=== PATIENT | female | born 1965 | race Caucasian/White ===

== ENCOUNTER 2023-07-09 10:53 | Outpatient (AMB) | payer OTHER, SELFPAY ==
--- NOTE | 2023-07-09 11:07 | A.OFFPC_ITS ---
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 Tie Man Required: No Accompanied by: Self / Same As Patient Allergies amoxicillin [From Augmentin] Allergy (Severe, Verified 07/09/23 11:38) Rash clavulanic acid [From Augmentin] Allergy (Severe, Verified 07/09/23 11:38) Rash Medication List - Last Reconciled 07/09/23 by Ingrid Castillo, [facility]- citalopram 20 mg PO DAILY insulin glargine (Basaglar KwikPen U-100 Insulin) 46 units subcut QPM insulin lispro (Humalog KwikPen (U-100) Insulin) subcut metoprolol succinate ER 50 mg PO DAILY pen needle, diabetic (BD Maya 2nd Gen Pen Needle) As directed rosuvastatin 40 mg PO DAILY triamterene-hydrochlorothiazid 37.5-25 mg 1 cap PO DAILY Tobacco use date assessed: 07/09/23 Dental Screening Dental Screen Date: 07/09/23 Did you have a dental visit in the last 12 months?: Yes Did you have a dental problem in the last 6 months where you did not have access to dental care?: No Was dental information given to patient?: Patient has dentist HPI HPI Comments History of Present Illness Details 57 y/o F with DM2, Meniere's Dz, Hyperli pidemia, menopause, obesity, lichen sclerosis, HTN, MDD Surgery: back surgery 2020 Dr Crawford, 2002 R meniscal tear ([facility]). Health Maintenance: Colon 2019, repeat 2022. Overdue ([facility]). Referral placed today. Mammo Oct 2022 DEXA has never had one, ordered today PAP UTD HgA1c she will get this done Friday, ordered by [facility]. DME in last year, reports negative for retinopathy Vaccines: Declined flu shot; Thinks UTD on tdap. 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 Will be getting labs done this week for Endo - declines add'l labs today Derm - was managed in past for lichen sclerosis. Noted new mole under breast, would like evaled. Active w/ ENT for Meniere's. Hearing aide on R.Dizziness that comes and goes. Does her best to watch her diet. Wonders if there's anything she can take PRN. [facility] Medical History (Updated 07/09/23 @ 16:10 by Ingrid Castillo, [employer]-) Menieres disease Diabetes Social History (Updated 07/09/23 @ 11:21 by Lilia Nevarez [facility]) Household Members: Other Household Members Other:: 2 cats Housing: Apartment 75 years or older and lives alone: No Alcohol intake: current Alcohol intake frequency: holidays/special occasions only Patient Tobacco Use Status: Former Tobacco user Years Smoked: 10 e-Cigarette/Vaping Use: Never Used service: No Current occupational status: employed Current occupation: [employer] Current occupational exposures/hazards: No Cognitive needs: No Hearing needs: Yes (hearing aid in right ear) Vision needs: No Questionnaire PHQ-9 Over the last 2 weeks, how often have you been bothered by any of the following problems? 1. Little interest or pleasure in doing things: not at all 2. Feeling down, depressed, or hopeless: not at all 3. Trouble falling or staying asleep, or sleeping too much: not at all 4. Feeling tired or having little energy: not at all 5. Poor appetite or overeating: not at all 6. Feeling bad about yourself - or that you are a failure or have let yourself or your family down: not at all 7. Trouble concentrating on things, such as reading the newspaper or watching television: not at all 8. Moving or speaking so slowly that other people could have noticed. Or the opposite - being so fidgety or restless that you have been moving around a lot more than usual: not at all 9. Thoughts that you would be better off or of hurting yourself in some way : not at all Total score: 0 Depression Screening Interpretation: Negative Depression Screening Done: Yes 24161 - PHQ-9 Billing: Yes Source: Developed by Drs. Jacob Hess, Gayla Oscar, Antonio Martinez and colleagues, with an educational avani from [employer]. Thrive Questionnaire Date Thrive assessed: 07/09/23 I am a: Patient What is your living situation today?: I have a steady place to live Within the past 12 months, did the food you bought not last and you didn't have the money to get more?: Never true Within the past 12 months, did you worry whether your food would run out before you got money to buy more?: Never true Do you have trouble paying for medicines?: No Do you have trouble getting transportation to medical appointments?: No Do you have trouble paying your heating and electricity bill?: No Do you have trouble taking care of your child, family member or friend?: No Do you have trouble with day-to-day activities such as bathing, preparing meals, shopping, managing finances, etc.?: No Are you currently unemployed and looking for a job?: No Are you interested in more education?: No Please select the resources that you would like help with: None Currently or been in a relationship where the following occur: no concerns reported THRIVE Score: 0 AUDIT C Alcohol Use Questionnaire (AUDIT-C) 1. How often do you have a drink containing alcohol?: Never 3. How often do you have six or more drinks on one occasion?: Never Total Score: 0 Score Reviewed/Action Taken: Yes ED-7 AMB Questionnaire ED-7 Date ED - 7 assessed: 07/09/23 Feeling nervous, anxious, or on edge: 0 = Not at all Not being able to stop or control worryin = Not at all Worrying too much about different things: 0 = Not at all Trouble relaxin = Not at all Being so restless that it is hard to sit still: 0 = Not at all Becoming easily annoyed or irritable: 0 = Not at all Feeling afraid as if something awful might happen: 0 = Not at all Total ED-7 score (0-4 normal; 5-9 mild; 10-14 moderate; 15-21 severe): 0 Source: Developed by Gayla Kilgore, Antonio Martinez and colleagues, with an educational avani from [employer]. ED-7 Assessment Billing ED-7 Assessment Tool: ED-7 Assessment 10637 Review of Systems Const Details: Constitutional: Denies fever. Skin: Denies rash. Eye: Denies eye pain. ENMT: Denies sore throat and nasal congestion. Respiratory: Denies shortness of breath and cough. Gastrointestinal: Denies nausea, vomiting or abdominal pain. Cardiovascular: Denies chest pain and syncope. Genitourinary: Denies dysuria. Musculoskeletal: Denies back pain and extremity pain. Neurologic: Denies headaches, confusion, and weakness. Psychiatric: Denies suicidal thoughts and substance abuse. Allergy/ Immunologic: Denies impaired immunity. Physical exam (Primary Care) Vital Signs: Last Vital Signs Pulse 70 07/09/23 11:08 Resp 13 07/09/23 11:08 BP 108/54 L 07/09/23 11:08 Pulse Ox 96 07/09/23 11:08 Oxygen Delivery Method Room Air 07/09/23 11:08 BMI result Body Mass Index 35.3 BMI Assessment/Plan discussion: High BMI High, discussed plan: lifestyle Tobacco/Smoking Status: Tobacco use Status Tobacco use date assessed 07/09/23 07/09/23 11:24 Patient Tobacco Use Status Former Tobacco user 07/09/23 11:24 e-Cigarette/Vaping Use Never Used 07/09/23 11:24 PHQ-9: PHQ-9 Score PHQ-9: Total score 0 07/09/23 11:38 Depression Screening Interpretation: Negative Thrive Assessment: Date of Thrive Assessment Date Thrive assessed 07/09/23 07/09/23 11:24 Currently or been in a relationship where the following occur: no concerns reported Const Other: General: Well developed, well nourished, in no acute distress. Appears stated age. Head: Normocephalic, atraumatic. Eyes: Pupils are equal, round and reactive to light and accommodation. Conjunctivae are clear. Vision grossly normal. Ears: TMs clear AU, EACS WNL Nose: Patent, without discharge. Mouth: There are no ulcers or lesions noted. No inflammation, no post nasal drip, no plaques nor exudates. Neck: Supple, no adenopathy or thyromegaly. Lungs: Clear to auscultation bilaterally. No rales, rhonchi or wheeze noted. Good air flow in all aquion. Heart: Regular rate and rhythm. No murmurs, click, rubs or gallops are noted. Abdomen: Bowel sounds present in all quadrants. The abdomen is soft, nontender, with no masses or organomegaly noted. No hernias are noted. Musculoskeletal: Joints are nontender, without swelling, redness, or effusions. Range of motion is observed to be normal. Pulses: Peripheral pulses are equal and palpable bilaterally. Extremities: No clubbing, cyanosis nor edema is noted. Neurologic: Gait and station normal. Cranial Nerves 2-12 intact. Motor strength grossly symmetrical and intact. No sensory loss. Balance normal. Skin: No rashes, ulcers, or lesions noted. Turgor is good. Skin color is good. Hair and nails are without abnormalities. Psych: Normal eye contact, affect and mood appropriate, and normal interactions. Patient is alert and appropriate to context. Assessment and Plan Assessment & Plan (1) Annual physical exam: Code(s): Z00.00 - Encounter for general adult medical examination without abnormal findings (2) Menopause: Comment: check DEXA ok to get done when she gets her annual mammo done 10/2023 Code(s): Z78.0 - Asymptomatic menopausal state (3) Lichen sclerosus: Comment: referred to [facility] for treatment Code(s): L90.0 - Lichen sclerosus et atrophicus (4) Insulin-treated type 2 diabetes mellitus: Comment: active w/ Endo and Optho On ACEI & Statin Cont diabetic medications and diet Code(s): E11.9 - Type 2 diabetes mellitus without complications; Z79.4 - intermodal dispatcher (c urrent) use of insulin (5) Hyperlipidemia due to type 2 diabetes mellitus: Comment: goal LDL < 70 On rosuvastatin 40mg Code(s): E11.69 - Type 2 diabetes mellitus with other specified complication; E78.5 - Hyperlipidemia, unspecified (6) Hypertension complicating diabetes: Comment: goal < 130/80 Controlled on current meds, cont. Code(s): E11.59 - Type 2 diabetes mellitus with other circulatory complications; I15.2 - Hypertension secondary to endocrine disorders (7) Meniere's disease of right ear: Comment: managed by ENT, Dr [place]en[place] hearing aidawilda R ear Given RX for PRN Meclizine, use sparingly. Code(s): H81.01 - Meniere's disease, right ear (8) Colon cancer screening: Comment: referred to [facility], pt request due for colon 2022. Code(s): Z12.11 - Encounter for screening for malignant neoplasm of colon (9) Severe obesity (BMI 35.0-39.9) with comorbidity: Comment: HTN + DM Lifestyle mods. Code(s): E66.01 - Morbid (severe) obesity due to excess calories (10) MDD (major depressive disorder), recurrent episode: Comment: on celexa 20mg po QD Cont. Code(s): F33.9 - Major depressive disorder, recurrent, unspecified Qualifiers: Major depression episode severity: mild Qualified Code(s): F33.0 - Major depressive disorder, recurrent, mild Orders: Orders XR DEXA axial skeleton Today Z78.0 - Asymptomatic menopausal state Referrals Gastroenterology Referral Z12.11 - Encounter for screening for malignant neoplasm of colon Dermatology Referral L90.0 - Lichen sclerosus et atrophicus Medications: New citalopram 20 mg PO DAILY 90 tabs 1RF rosuvastatin 40 mg PO DAILY 90 tabs 0RF meclizine 25 mg PO BID PRN 60 tabs 0RF dizziness metoprolol succinate ER 50 mg PO DAILY 90 tabs 1RF triamterene-hydrochlorothiazid 37.5-25 mg 1 cap PO DAILY 90 caps 0RF Patient Instructions: RTO 1 year for CPE, sooner as needed Health screenings for women You should visit your health care provider from time to time, even if you are healthy. The purpose of these visits is to: Screen for medical issues Assess your risk for future medical problems Encourage a healthy lifestyle Update vaccinations and other preventive care services Help you get to know your provider in case of an illness Information Even if you feel fine, you should still see your provider for regular checkups. These visits can help you avoid problems in the future. For example, the only way to find out if you have high blood pressure is to have it checked regularly. High blood sugar and high cholesterol levels also may not have any symptoms in the early stages. A simple blood test can check for these conditions. There are specific times when you should see your provider or receive specific health screenings. The [place] Preventive Services Task Force publishes a list of recommended screenings. Below are screening guidelines for women ages 18 to 39. BLOOD PRESSURE SCREENING Your blood pressure should be checked at least once every 3 to 5 years if: Your blood pressure is in the normal range (top number less than 120 mm Hg and bottom number less than 80 mm Hg) You don't have risk factors for high blood pressure Ask your provider if you need your blood pressure checked more often if: The top number is 120 to 129 mm Hg or the bottom number is 70 to 79 mm Hg You have diabetes, heart disease, kidney problems, are overweight, or have certain other health conditions You have a first-degree relative with high blood pressure You are Black You had high blood pressure during a If the top number is 130 mm Hg or greater or the bottom number is 80 mm Hg or greater, this is considered stage 1 hypertension. Schedule an appointment with your provider to learn how you can reduce your blood pressure. Watch for blood pressure screenings in your area. Ask your provider if you can stop in to have your blood pressure checked. BREAST CANCER SCREENING Experts do not agree about the benefits of breast self-exams in finding breast cancer or saving lives. Talk to your provider about what is best for you. A screening mammogram is not recommended for most women under age 40. Your provider may discuss and recommend mammograms, MRI scans, or ultrasounds if you have an increased risk for breast cancer, such as: A mother or sister who had breast cancer at a young age (most often starting screening earlier than the age the close relative was diagnosed) You carry a high-risk genetic marker CERVICAL CANCER SCREENING Cervical cancer screening should start at age 21 years unless your provider advises otherwise. After the first test: Women ages 21 through 29 should have a Pap test every 3 years. Exoprts do not agree on whether HPV testing is recommended for this age group. Women ages 30 through 65 should be screened with either a Pap test every 3 years or the HPV test every 5 years or both tests every 5 years (called cotesting ). Women who have been treated for precancer (cervical dysplasia) should continue to have Pap tests for 20 years after treatment or until age 65, whichever is longer. If you have had your uterus and cervix removed (total hysterectomy), and you have not been diagnosed with cervical cancer or precancer (high grade cervical neoplasia), you do not need cervical cancer screening. CHOLESTEROL SCREENING Cholesterol screening should begin at: Age 45 for women with no known risk factors for coronary heart disease Age 20 for women with known risk factors for coronary heart disease Repeat cholesterol screening should take place: Every 5 years for women with normal cholesterol levels More often if changes occur in lifestyle (including weight gain and diet) More often if you have diabetes, heart disease, kidney problems, or certain other conditions DIABETES SCREENING You should be screened for diabetes starting at age 35 and then repeated every 3 years if you have no risk factors for diabetes. Screening may need to start earlier and be repeated more often if you have other risk factors for diabetes, such as: You have a first degree relative with diabetes. You are overweight or have obesity. You have high blood pressure, prediabetes, or a history of heart disease. Screening for diabetes should be done if you are planning to become and you are overweight and have other risk factors such as high blood pressure. DENTAL EXAM Go to the dentist once or twice every year for an exam and cleaning. Your dentist will evaluate if you need more frequent visits. EYE EXAM Have an eye exam every 5 to 10 years before age 40. If you have vision problems, have an eye exam every 2 years or more often if recommended by your provider. You should have an eye exam that includes an examination of your retina (back of your eye) at least every year if you have diabetes. IMMUNIZATIONS Commonly needed vaccines include: Flu shot: get one every year. COVID-19 vaccine: ask your provider what is best for you. Tetanus-diphtheria and acellular pertussis (Tdap) vaccine: have one at or after age 19 as one of your tetanus-diphtheria vaccines if you did not receive it as an adolescent. Tetanus-diphtheria: have a booster (or Tdap) every 10 years. Varicella vaccine: receive 2 doses if you never had chickenpox or the varicella vaccine. Hepatitis B vaccine: receive 2, 3, or 4 doses, depending on your exact circumstances. Measles, mumps, and rubella (MMR) vaccine: receive 1 to 2 doses if you are not already immune to MMR. Your provider can tell you if you are immune. Ask your provider about the human papillomavirus (HPV) vaccine if: You have not received the HPV vaccine in the past You have not completed the full vaccine series (you should catch up on this shot) Ask your provider if you should receive other immunizations if you have certain health problems that increase your risk for some diseases such as pneumonia. INFECTIOUS DISEASE SCREENING Women who are sexually active should be screened for chlamydia and gonorrhea up until age 25. Women 25 years and older should be screened for chlamydia and gonorrhea if at high risk. Screening for hepatitis C: All adults ages 18 to 79 should get a one-time test for hepatitis C. people should be screened at every . Screening for human immunodeficiency virus (HIV): All people ages 15 to 65 should get a one-time test for HIV. Depending on your lifestyle and medical history, you may also need to be screened for infections such as syphilis and HIV, as well as other infections. PHYSICAL EXAM All adults should visit their provider from time to time, even if they are healthy. The purpose of these visits is to: Screen for disease Assess your risk of future medical problems Encourage a healthy lifestyle Update your vaccinations and other preventive care services Maintain a relationship with a provider in case of an illness Your height, weight, and BMI should be checked at every exam. During your exam, your provider may ask you about: Depression and anxiety Diet and exercise Alcohol and tobacco use Safety issues, such as using seat belts, smoke detectors, and intimate partner violence Your medicines and risk for interactions SKIN SELF-EXAM Your provider may check your skin for signs of skin cancer, especially if you're at high risk, such as if you: Have had skin cancer before Have close relatives with skin cancer Have a weakened immune system OTHER SCREENING Talk with your provider about colon cancer screening if you have a strong family history of colon cancer or polyps, or if you have had inflammatory bowel disease or polyps yourself. Routine bone density screening of women under 40 is not recommended. Coding Level of Care Code New Pt Prev Care 40-64y(46687) Diagnoses Annual physical exam Z00.00 Menopause Z78.0 Lichen sclerosus L90.0 Insulin-treated type 2 diabetes mellitus E11.9; Z79.4 Hyperlipidemia due to type 2 diabetes mellitus E11.69; E78.5 Hypertension complicating diabetes E11.59; I15.2 Meniere's disease of right ear H81.01 Colon cancer screening Z12.11 Severe obesity (BMI 35.0-39.9) with comorbidity E66.01 Mild episode of recurrent major depressive disorder F33.0 Major depression episode severity: mild Additional Codes ED-7 Assessment Billing - ED-7 Assessment Tool: ED-7 Assessment 78394 ([id number])
[2023-07-09 11:08] VITALS: BP 108/54; PULSE 70; RESP 13; O2SAT 96; BMI 35.3
== END 2023-07-09 12:05 | disposition home or self-care (01) ==
PROVIDERS: PCP Nurse Practitioner Family; Visit Provider Nurse Practitioner Family
DX: Z00.00 Encounter for general adult medical examination without abnormal findings (principal); Z79.4 Long term (current) use of insulin; E11.69 Type 2 diabetes mellitus with other specified complication; E11.59 Type 2 diabetes mellitus with other circulatory complications; E66.01 Morbid (severe) obesity due to excess calories; F33.0 Major depressive disorder, recurrent, mild; Z68.35 Body mass index [BMI] 35.0-35.9, adult; Z78.0 Asymptomatic menopausal state; L90.0 Lichen sclerosus et atrophicus; E78.5 Hyperlipidemia, unspecified; I15.2 Hypertension secondary to endocrine disorders; H81.01 Meniere's disease, right ear
CPT/HCPCS: 99386

== ENCOUNTER 2023-08-22 08:21 | Outpatient (REF) | payer OTHER, SELFPAY ==
--- NOTE | ~2023-08-22 | MM_ITS ---
EXAMINATION: BONE DENSITOMETRY CLINICAL INDICATION: Asymptomatic menopausal state. COMPARISON: This is the patient's baseline examination. TECHNIQUE: Using a [employer] DXA System (software version: 13.1) manufactured by [employer], dual-energy x-ray absorptiometry was performed of the lumbar spine and left hip. The images are of good technical quality. Summary results are attached. FINDINGS: LEFT FEMUR, NECK: BMD 1.137 g/cm2, Z-score 1.2, T-score 0.7, normal. LEFT FEMUR, TOTAL: BMD 1.234 g/cm2, Z-score 1.8, T-score 1.8, normal. AP SPINE L1-L4: BMD 1.440 g/cm2, Z-score 2.1, T-score 2.2, normal. IDENTIFIED RISK FACTORS: Menopause, renal, thiazide. HISTORY OF FRACTURE: None listed. MEDICATIONS: Vitamin D. MM/XR DEXA axial skeleton IMPRESSION: 1. DIAGNOSIS: Normal bone density based on the lowest T-score value of 0.7 in the femoral neck applying World Health Organization criteria. 2. 10-YEAR FRACTURE RISK PREDICTION, FRAX: According to the guidelines, FRAX calculation should only be performed on patients in the osteopenia bone density category. Therefore, FRAX was not performed on this patient. 3. Treatment Recommendations: NOF guidelines recommend consideration for treatment in postmenopausal women and men age 50 and older presenting with the following: -A hip or vertebral (clinical or morphometric) fracture. -T-score less than or equal to -2.5 at the femoral neck or spine after appropriate evaluation to exclude secondary causes. -Low bone mass at the hip or spine and a 10-year fracture probability by FRAX of greater than or equal to 3% for hip fracture or greater than or equal to 20% for major osteoporotic fracture based on the [place] adapted WHO algorithm. 4. Other Recommendations: All treatment decisions require clinical judgment and consideration of individual patient factors, including patient preferences, comorbidities, previous drug use, risk factors not captured in the FRAX model (e.g. frailty, falls, vitamin D deficiency, increased bone turnover, interval significant decline in bone density) and possible under or overestimation of fracture risk by FRAX. FUTURE SCAN RECOMMENDATION: People with diagnosed cases of osteoporosis or at high risk for fracture should have regular bone mineral density tests. For patients eligible for Medicare, routine testing is allowed once every 2 years. The testing frequency can be increased to one year for patients who have rapidly progressing disease, those who are receiving or discontinuing medical therapy to restore bone mass, or have additional risk factors.
== END 2023-08-22 08:22 | disposition home or self-care (01) ==
LOC: HO.MAMMO 08:21
PROVIDERS: PCP Nurse Practitioner Family; Visit Provider Nurse Practitioner Family
DX: Z13.820 Encounter for screening for osteoporosis (principal); Z78.0 Asymptomatic menopausal state
CPT/HCPCS: 77080

== ENCOUNTER 2024-03-29 09:37 | Outpatient (AMB) | payer OTHER, SELFPAY ==
--- NOTE | 2024-03-29 09:57 | A.OFFPC_ITS ---
Vital Signs 03/29/24 10:01 Height 5 ft 6 in Weight 218 lb 4 oz BMI 35.2 BP 108/64 Blood Pressure Location Lt brachial Position Sitting Pulse 70 Pulse Source Pulse Oximeter Pulse Oximetry (%) 97 Oxygen Delivery Method Room Air Intake Visit Reasons: Back Pain Intake Note: Lower back pain [employer] Required: No Allergies amoxicillin [From Augmentin] Allergy (Severe, Verified 03/29/24 09:57) Rash clavulanic acid [From Augmentin] Allergy (Severe, Verified 03/29/24 09:57) Rash Tobacco use date assessed: 03/29/24 Dental Screening Dental Screen Date: 07/09/23 HPI HPI Comments History of Present Illness Details 57 y/o F with DM2, Meniere's Dz, Hyperli pidemia, menopause, obesity, lichen sclerosis, HTN, MDD presenting for worsening chronic low back pain She has been having persistent low back pain R>L for the past few months. Worsening in severity. Worsens at night when laying. She cannot even turn over in bed. There is radiation down the right buttock and thigh. Sometimes right leg feels week. Dorsiflexion is weaker on right. Feels like something catches. She has a history of lumbar surgery in [address] Crawford. No fevers or b/b incontinence ROS see HPI PHYSICAL EXAM: GENERAL: Alert and oriented x 3. NAD EYES: EOMI. Anicteric. HENT: Moist mucous membranes. No scleral icterus. No cervical lymphadenopathy. LUNGS: Clear to auscultation bilaterally. CARDIOVASCULAR: Regular rate and rhythm. No murmur. No JVD. ABDOMEN: Soft, non-tender +bs EXTREMITIES: No edema. Non-tender. SKIN: No rashes or lesions. Warm. NEUROLOGIC: Right lumbar paraspinal spasm. Limited flexion/extension. 4/5 right LE dorsiflexion, weak hip abduction. PSYCHIATRIC: Cooperative. Appropriate mood and affect [facility] Medical History (Updated 03/29/24 @ 10:18 by Ramonita Fenton MD) Menieres disease Diabetes Surgical History (Updated 03/29/24 @ 10:18 by Ramonita Fenton MD) Previous back surgery Family History (Updated 03/29/24 @ 09:59 by Deloris Fajardo CMA) Other FH: mental illness Substance abuse Social History (Updated 03/29/24 @ 09:59 by Deloris Fajardo CMA) Household Members: Other Household Members Other:: 2 cats Housing: [address] 75 years or older and lives alone: No Alcohol intake: current Alcohol intake frequency: holidays/special occasions only Patient Tobacco Use Status: Former Tobacco user Years Smoked: 10 e-Cigarette/Vaping Use: Never Used Use of substances other than those prescribed or required for medical reasons: No service: No Current occupational status: employed Current occupation: [employer] Current occupational exposures/hazards: No Cognitive needs: No Hearing needs: Yes (hearing aid in right ear) Vision needs: No Questionnaire Thrive Questionnaire Date Thrive assessed: 03/26/24 I am a: Patient What is your living situation today?: I have a steady place to live Within the past 12 months, did the food you bought not last and you didn't have the money to get more?: Never true Within the past 12 months, did you worry whether your food would run out before you got money to buy more?: Never true Do you have trouble paying for medicines?: No Do you have trouble getting transportation to medical appointments?: No Do you have trouble paying your heating and electricity bill?: No Do you have trouble taking care of your child, family member or friend?: No Do you have trouble with day-to-day activities such as bathing, preparing meals, shopping, managing finances, etc.?: No Are you currently unemployed and looking for a job?: No Are you interested in more education?: No Please select the resources that you would like help with: None Currently or been in a relationship where the following occur: No concerns repor mirela THRIVE Score: 0 AUDIT C Alcohol Use Questionnaire (AUDIT-C) 1. How often do you have a drink containing alcohol?: 2-4 times a month 2. How many drinks containing alcohol do you have on a typical day when you are drinking?: 1 or 2 3. How often do you have six or more drinks on one occasion?: Less than monthly Total Score: 3 ED-7 AMB Questionnaire ED-7 Date ED - 7 assessed: 07/09/23 Feeling nervous, anxious, or on edge: 0 = Not at all Not being able to stop or control worryin = Not at all Worrying too much about different things: 0 = Not at all Trouble relaxin = Not at all Being so restless that it is hard to sit still: 0 = Not at all Becoming easily annoyed or irritable: 0 = Not at all Feeling afraid as if something awful might happen: 0 = Not at all Total ED-7 score (0-4 normal; 5-9 mild; 10-14 moderate; 15-21 severe): 0 Source: Developed by Drs. Jacob Hess, Gayla Oscar, Antonio Martinez and colleagues, with an educational avani from [employer]. Physical exam (Primary Care) Vital Signs: Last Vital Signs Pulse 70 03/29/24 10:01 BP 108/64 03/29/24 10:01 Pulse Ox 97 03/29/24 10:01 Oxygen Delivery Method Room Air 03/29/24 10:01 BMI result Body Mass Index 35.2 Tobacco/Smoking Status: Tobacco use Status Tobacco use date assessed 03/29/24 03/29/24 10:02 Patient Tobacco Use Status Former Tobacco user 03/29/24 10:02 e-Cigarette/Vaping Use Never Used 03/29/24 10:02 Thrive Assessment: Date of Thrive Assessment Date Thrive assessed 03/26/24 03/29/24 10:02 Currently or been in a relationship where the following occur: No concerns reported Coding Level of Care Code Est Pt Level 4 (78838) Diagnoses Lumbar radiculopathy M54.16 History of lumbar surgery Z98.890 Lumbar disc disease M51.9 Assessment & Plan Assessment & Plan (1) Lumbar radiculopathy: Code(s): M54.16 - Radiculopathy, lumbar region Category: Medical Plan: xray and MRI ordered Referral placed to physical therapy Will follow up with results Declines meds (2) History of lumbar surgery: Code(s): Z98.890 - Other specified postprocedural states Category: Surgical Plan: see above (3) Lumbar disc disease: Code(s): M51.9 - Unspecified thoracic, thoracolumbar and lumbosacral intervertebral disc disorder Category: Medical Plan: see above Orders: Orders MR lumbar spine w con Today M51.9 - Unspecified thoracic, thoracolumbar and lumbosacral intervertebral disc disorder, M54.16 - Radiculopathy, lumbar region, M62.830 - Muscle spasm of back, Z98.890 - Other specified postprocedural states PT Evaluation and Treatment Today M54.16 - Radiculopathy, lumbar region XR lumbar spine 2-3V Today M51.9 - Unspecified thoracic, thoracolumbar and lumbosacral intervertebral disc disorder, M62.830 - Muscle spasm of back
[2024-03-29 10:01] VITALS: BP 108/64; PULSE 70; O2SAT 97; BMI 35.2
== END 2024-03-29 11:55 | disposition home or self-care (01) ==
PROVIDERS: PCP Nurse Practitioner Family; Visit Provider Internal Medicine
DX: M54.16 Radiculopathy, lumbar region (principal); Z98.890 Other specified postprocedural states; M51.9 Unspecified thoracic, thoracolumbar and lumbosacral intervertebral disc disorder

== ENCOUNTER 2024-07-14 11:57 | Outpatient (AMB) | payer OTHER, SELFPAY ==
--- NOTE | 2024-07-14 12:00 | A.OFFPC_ITS ---
Vital Signs 07/14/24 12:08 Height 5 ft 6 in Weight 221 lb BMI 35.7 BP 98/69 Blood Pressure Location Rt brachial Position Sitting Respiration 12 Pulse 55 Pulse Source Pulse Oximeter Temp 97.6 F Temp Source Oral Pulse Oximetry (%) 98 Oxygen Delivery Method Room Air Intake Visit Reasons: pe Intake Note: CPE. Patient also want to discuss her vertigo. [employer] Required: No Allergies amoxicillin [From Augmentin] Allergy (Severe, Verified 07/14/24 12:23) Rash clavulanic acid [From Augmentin] Allergy (Severe, Verified 07/14/24 12:23) Rash Medication List - Last Reconciled 07/14/24 by Ingrid Castillo, CLAY MACHINE OPERATOR- citalopram 20 mg PO DAILY insulin glargine (Basaglar KwikPen U-100 Insulin) 10 units subcut QPM insulin lispro (Humalog KwikPen (U-100) Insulin) 1 sliding scale dose subcut USEASDIRECTD meclizine 25 mg PO BID PRN metoprolol succinate ER 50 mg PO DAILY pen needle, diabetic (BD Maya 2nd Gen Pen Needle) As directed rosuvastatin 40 mg PO DAILY semaglutide (Ozempic) 0.25 mg subcut QWEEK triamterene-hydrochlorothiazid 37.5-25 mg 1 cap PO DAILY Tobacco use date assessed: 07/14/24 Dental Screening Dental Screen Date: 07/14/24 Did you have a dental visit in the last 12 months?: Yes Did you have a dental problem in the last 6 months where you did not have access to dental care?: No Was dental information given to patient?: Patient has dentist HPI HPI Comments History of Present Illness Details 58 y/o F with DM2, Meniere's Dz, Hyperli pidemia, menopause, obesity, l ichen sclerosis, HTN, MDD Surgery: back surgery 2020 Dr Crawford, 2002 R meniscal tear ([facility]). Health Maintenance: Colon 2019, repeat 2024, + polyps, repeat 5 years Overdue ([facility]). DEXA 08/2023 WNL Mammo 10/2023 PAP UTD DME in last year, reports negative for retinopathy Summer 2023 Vaccines: Declined flu shot; Thinks UTD on tdap. Specialists: [facility] E[facility] at [facility] - treated for ingrown toenails; next appt July 2024 Results: DEXA 08/2023 WNL Mammo 10/2023Feb 2024 CMP, Urine microalb WNL Oct 2024 Lipids WNL Stress test 2020 - was not able to review, ? done at [facility] Sleep study pending ordered by ENT August 2024 The patient is a 58-year-old female presenting with an annual physical exam and evaluation of chest pain. - Reports sporadic and intermittent ches t pain primarily at rest, no clear triggers associated with food or exercise, previously evaluated with a stress test in 2020. - The stress test due to previous activi ty-related pain led to initiation of metoprolol; current pain differs by occurring mostly at rest.BP on lower side of normal today. - A1c improved from 9.4% in May to 8.7 % today. - Manages type 2 diabetes with insulin a nd recent addition of Ozempic. Endo. - Previous colonoscopy revealed precance ming polyps, next scheduled in five years. - Worsening vertigo related to Meniere's disease, reports outside recent labs revealed low chloride level, she wonders if this could be the cause - Additional concern of potential sleep apnea; sleep study scheduled. - Stable depression yet reports severe f atigue and frequent daytime naps - Experiences possible neuropathy in toe s, primarily nocturnal, and sensation issues attributed to diabetes. Active w podiatry. - Functionality somewhat affected by diz ziness episodes due to Meniere?s disease. Active w/ ENT for Meniere's. Hearing aide on R. Dizziness that comes and goes. Does her best to watch her diet. Derm - managed in past for lichen sclerosis. mole under breast, evaled. Health Maintenance - Colonoscopy in the current year with p olyp removal; repeat scheduled in 2024. - Last diabetic eye exam in summer 2023, without reported issues. - Scheduled sleep study for potential ob structive sleep apnea in August. - Was advised on continuing preventative screenings and monitoring for diabetes complications. Review of Systems - Cardiovascular: Reports chest pain (sp oradic, at rest); Denies palpitations. - Gastrointestinal: Denies nausea, vomit ing. - Musculoskeletal: Denies pain in back o r arms. - Neurological: Reports vertigo associat ed with Meniere's disease; Denies migraines. - Psychiatric: Reports mood stable; Kofi es depression but feels fatigued. - Dermatological: Denies new skin lesion s (seeing internal wholesaler). - Ophthalmological: Last eye exam in sum 2023. Results - Labs: A1c level at 8.7%, triglycerides elevated at 157, other cholesterol levels within normal range. - Diagnostic Tests: Stress test in 2020; no results available but was performed due to chest pain during activity. Discussion Notes During today?s visit, we discussed the patient's multiple health concerns, including intermittent chest pain, diabetes management, potential obstructive sleep apnea, Meniere's disease, and frequent fatigue. We reviewed her historical data, including the stress test conducted in 2020, and her current medication regimen, notably metoprolol and recent addition of Ozempic. For her chest pain, we considered performing an EKG to check for any structural heart changes, as well as possibly adjusting her current medication dosages. Concerns of neuropathy and vertigo were noted, and the patient has pending endocrinological and ENT evaluations. We discussed home monitoring of her symptoms, including keeping a diary of her chest pain episodes and the importance of comprehensive glucose management. We agreed upon updating labs today to check chloride levels and other relevant parameters to better correlate her symptoms and potential findings. Furthermore, we addressed health maintenance topics such as eye exams and colonoscopy follow-up. Assessment and Plan 1. Type 2 Diabetes Mellitus Managed with insulin and Ozempic. A1c trending positively. Monitoring glucose levels and chloride due to potential interaction. Advised dietary management. 2. Chest Pain EKG performed today, WNL, reproducible, labs look good. Sent message after visit asking her to trial a PPI for 4 weeks and re-eval. Waiting on reply at this time. Current pain pattern differs from past; ongoing monitoring required. 3. Meniere's Disease Managed by ENT. Experienced vertigo, normal chloride levels checked, and treatments adjusted based on ENT guidance. 4. Pre-cancerous Colon Polyps Routine follow-up colonoscopy in five years; patient informed of results and importance of follow-up. 5. Hyperlipidemia Continue rosuvastatin; diet and triglyceride monitoring advised with follow-up labs. 6. Potential Obstructive Sleep Apnea Sleep study discussed and planned for August to assess sleep-related fatigue. Patient Instructions -Decrease Metoprolol Succ ER from 50mg Q D to 25 mg QD (cut in half. NN Recheck BP in 4 weeks) - Continue with all other current medica tions as prescribed. - Monitor blood sugar levels consistentl y. - Keep a diary of chest pain episodes, n oting triggers and associated activities. - Maintain regular appointments with end ocrinology and ENT specialists. - Follow a heart-healthy diet to manage cholesterol and triglyceride levels. - Attend sleep study; pay attention to s leep quality. - Communicate any sudden changes in symp toms or new concerns to the healthcare provider promptly. - RTO 1 year for CPE, although is trials PPI would like to see her sooner to ensure resolution of her sx. Consent Patient was informed and verbally consented to the use of an ambient scribe for clinic note documentation during this visit. An additional 33 minutes was spent addressing the problem(s) noted at todays visit. This includes time spent before the visit reviewing the chart, time spent during the visit, and time spent after the visit on documentation reviewing laboratory results, diagnostic imaging, medications, performing a medically necessary evaluation, counseling on diagnoses, care coordination, ordering a ppropriate tests, ordering appropriate medications, review of tests performed by other providers, reporting test results with the patient, communication with other healthcare providers. [facility] Medical History (Updated 07/14/24 @ 18:47 by CYNTHIA Gil-OSMIN) Diabetes Menieres disease Surgical History (Updated 07/14/24 @ 12:29 by Ingrid Castillo CLAY MACHINE OPERATOR-OSMIN) History of colonoscopy (~2024) Previous back surgery Family History Other FH: mental illness Substance abuse Social History Household Members: Other Household Members Other:: 2 cats Housing: Apartment Alcohol intake: current Alcohol intake frequency: holidays/special occasions only Patient Tobacco Use Status: Former Tobacco user Years Smoked: 10 e-Cigarette/Vaping Use: Never Used service: No Current occupational status: employed Current occupation: [employer] Current occupational exposures/hazards: No Cognitive needs: No Hearing needs: Yes (hearing aid in right ear) Vision needs: No Questionnaire PHQ-9 Over the last 2 weeks, how often have you been bothered by any of the following problems? 1. Little interest or pleasure in doing things: not at all 2. Feeling down, depressed, or hopeless: not at all 3. Trouble falling or staying asleep, or sleeping too much: several days 4. Feeling tired or having little energy: several days 5. Poor appetite or overeating: several days 6. Feeling bad about yourself - or that you are a failure or have let yourself or your family down: not at all 7. Trouble concentrating on things, such as reading the newspaper or watching television: not at all 8. Moving or speaking so slowly that other people could have noticed. Or the opposite - being so fidgety or restless that you have been moving around a lot more than usual: not at all 9. Thoughts that you would be better off or of hurting yourself in some way: not at all Total score: 3 Depression Screening Interpretation: Negative Depression Screening Done: Yes 50842 - PHQ-9 Billing: Yes Source: Developed by Drs. Jacob Hess, Gayla Oscar, Antonio Martinez and colleagues, with an educational avani from [employer]. Thrive Questionnaire Date Thrive assessed: 07/14/24 I am a: Patient What is your living situation today?: I have a steady place to live Within the past 12 months, did the food you bought not last and you didn't have the money to get more?: Never true Within the past 12 months, did you worry whether your food would run out before you got money to buy more?: Never true Do you have trouble paying for medicines?: No Do you have trouble getting transportation to medical appointments?: No Do you have trouble paying your heating and electricity bill?: No Do you have trouble taking care of your child, family member or friend?: No Do you have trouble with day-to-day activities such as bathing, preparing meals, shopping, managing finances, etc.?: No Are you currently unemployed and looking for a job?: No Are you interested in more education?: No Please select the resources that you would like help with: None Currently or been in a relationship where the following occur: No concerns reported THRIVE Score: 0 AUDIT C Alcohol Use Questionnaire (AUDIT-C) 1. How often do you have a drink containing alcohol?: Never 3. How often do you have six or more drinks on one occasion?: Never Total Score: 0 Score Reviewed/Action Taken: Yes ED-7 AMB Questionnaire ED-7 Date ED - 7 assessed: 07/14/24 Feeling nervous, anxious, or on edge: 0 = Not at all Not being able to stop or control worryin = Not at all Worrying too much about different things: 0 = Not at all Trouble relaxin = Not at all Being so restless that it is hard to sit still: 0 = Not at all Becoming easily annoyed or irritable: 0 = Not at all Feeling afraid as if something awful might happen: 0 = Not at all Total ED-7 score (0-4 normal; 5-9 mild; 10-14 moderate; 15-21 severe): 0 Source: Developed by Drs. Jacob Hess, Gayla Oscar, Antonio Martinez and colleagues, with an educational avani from [employer]. ED-7 Assessment Billing ED-7 Assessment Tool: ED-7 Assessment 78988 Physical exam (Primary Care) Vital Signs: Last Vital Signs Temp 97.6 F 07/14/24 12:08 Pulse 55 07/14/24 12:08 Resp 12 07/14/24 12:08 BP 98/69 07/14/24 12:08 Pulse Ox 98 07/14/24 12:08 Oxygen Delivery Method Room Air 07/14/24 12:08 BMI result Body Mass Index 35.7 BMI Assessment/Plan discussion: High BMI High, discussed plan: lifestyle Tobacco/Smoking Status: Tobacco use Status Tobacco use date assessed 07/14/24 07/14/24 12:04 Patient Tobacco Use Status Former Tobacco user 07/14/24 12:04 e-Cigarette/Vaping Use Never Used 07/14/24 12:04 PHQ-9: PHQ-9 Score PHQ-9: Total score 3 07/14/24 17:15 Depression Screening Interpretation: Negative Thrive Assessment: Date of Thrive Assessment Date Thrive assessed 07/14/24 07/14/24 12:04 Currently or been in a relationship where the following occur: No concerns reported Const Other: General: Well developed, well nourished, in no acute distress. Appears stated age. Head: Normocephalic, atraumatic. Eyes: Pupils are equal, round and reactive to light and accommodation. Conjunctivae are clear. Vision grossly normal. Ears: TMs clear AU, EACS WNL Nose: Patent, without discharge. Mouth: There are no ulcers or lesions noted. No inflammation, no post nasal drip, no plaques nor exudates. Neck: Supple, no adenopathy or thyromegaly. No carotid bruit bilat Lungs: Clear to auscultation bilaterally. No rales, rhonchi or wheeze noted. G ood air flow in all aquino. Heart: Regular rate and rhythm. No murmurs, click, rubs or gallops are noted. Abdomen: Bowel sounds present in all quadrants. The abdomen is soft, nontender, with no masses or organomegaly noted. No hernias are noted. Some pressure noted upon palpation, especially in the mid-sternal/epigastric area, reproducible chest pain Musculoskeletal: Joints are nontender, without swelling, redness, or effusions. Range of motion is observed to be normal. Pulses: Peripheral pulses are equal and palpable bilaterally. Extremities: No clubbing, cyanosis nor edema is noted. Neurologic: Gait and station normal. Cranial Nerves 2-12 intact. Motor strength grossly symmetrical and intact. No sensory loss. Balance normal. Skin: No rashes, ulcers, or lesions noted. Turgor is good. Skin color is good. Hair and nails are without abnormalities. Psych: Normal eye contact, affect and mood appropriate, and normal interactions. Patient is alert and appropriate to context. Office Procedures EKG [id number], Complete Results AMB Hemoglobin A1c AMB Hemoglobin A1c 8.7 % Last Edit by Abhi Reyes MA on 07/14/24 12:20 Results Reviewed Results Reviewed: Laboratory Last Values Hgb A1c (Clinic) 8.7 % (4.0-6.0) H 07/14/24 12:14 Laboratory Result Units Range Interpretation Provider Comments White Blood Count 9.0 X10*3/uL (4.8-10.8) Red Blood Count 4.21 X10*6/uL (4.20-5.50) Hemoglobin 12.6 g/dl (12.0-16.0) Hematocrit 37.5 % (37.0-47.0) Mean Corpuscular Volume 89.1 fL (80.0-98.0) Mean Corpuscular Hemoglobin 29.9 pg (27.0-33.0) Mean Corpuscular Hemoglobin Concent 33.6 g/dl (31.0-35.0) Red Cell Distribution Width 14.0 % (11.0-16.0) Platelet Count 263 X10*3/uL (160-400) Mean Platelet Volume 9.6 fL (9.4-12.3) Nucleated RBC Absolute Count (auto) 0.000 X10*3/uL (0.0-0.012) Nucleated Red Blood Cells % (auto) 0.0 /100WBC (0.0-0.2) Chloride Level 98 mmol/L (96-108) Phosphorus Level 3.0 mg/dL (2.7-4.5) Magnesium Level 2.1 mg/dL (1.6-2.6) Ferritin 67 ng/mL (10-250) Vitamin B12 Level 317 pg/mL (200-900) Folate 8.0 ng/mL (> or = 4.0) Thyroid Stimulating Hormone (TSH) 0.97 uIU/mL (0.32-4.0) Coding Level of Care Code Est Pt Level 4 (61964) Est Pt Prev Care 40-64y(77148) Diagnoses Annual physical exam Z00.00 Hyperlipidemia due to type 2 diabetes mellitus E11.69; E78.5 Hypertension complicating diabetes E11.59; I15.2 Insulin-treated type 2 diabetes mellitus E11.9; Z79.4 Lichen sclerosus L90.0 Mild episode of recurrent major depressive disorder F33.0 Major depression episode severity: mild Meniere's disease of right ear H81.01 Menopause Z78.0 Severe obesity (BMI 35.0-39.9) with comorbidity E66.01 Chest pain, unspecified type R07.9 Chest pain type: unspecified CPT Codes EKG - CPT: 15885-[id number], Complete ([id number]) Additional Codes ED-7 Assessment Billing - ED-7 Assessment Tool: ED-7 Assessment 54688 ([id number]) PHQ-9 - 21233 - PHQ-9 Billing: Yes ([id number]) Assessment & Plan Assessment & Plan (1) Annual physical exam: Onset Date: ~06/2024 Code(s): Z00.00 - Encounter for general adult medical examination without abnormal findings Category: Medical (2) Hyperlipidemia due to type 2 diabetes mellitus: Comment: goal LDL < 70 On rosuvastatin 40mg Code(s): E11.69 - Type 2 diabetes mellitus with other specified complication; E78.5 - Hyperlipidemia, unspecified Category: Medical (3) Hypertension complicating diabetes: Comment: goal < 130/80 Controlled on current meds, cont. Code(s): E11.59 - Type 2 diabetes mellitus with other circulatory complications; I15.2 - Hypertension secondary to endocrine disorders Category: Medical (4) Insulin-treated type 2 diabetes mellitus: Comment: active w/ Endo and Optho On ACEI & Statin Cont diabetic medications and diet Code(s): E11.9 - Type 2 diabetes mellitus without complications; Z79.4 - [facility]FP (current) use of insulin Category: Medical (5) Lichen sclerosus: Comment: referred to [facility] for treatment Code(s): L90.0 - Lichen sclerosus et atrophicus Category: Medical (6) MDD (major depressive disorder), recurrent episode: Comment: on celexa 20mg po QD Cont. Code(s): F33.9 - Major depressive disorder, recurrent, unspecified Category: Medical Qualifiers: Major depression episode severity: mild Qualified Code(s): F33.0 - Major depressive disorder, recurrent, mild (7) Meniere's disease of right ear: Comment: managed by ENT, Dr Montenegro hearing aide R ear Code(s): H81.01 - Meniere's disease, right ear Category: Medical (8) Menopause: Comment: DEXA 2023 wn Code(s): Z78.0 - Asymptomatic menopausal state Category: Medical (9) Severe obesity (BMI 35.0-39.9) with comorbidity: Comment: HTN + DM Lifestyle mods. Code(s): E66.01 - Morbid (severe) obesity due to excess calories Category: Medical (10) Chest pain: Code(s): R07.9 - Chest pain, unspecified Category: Medical Qualifiers: Chest pain type: unspecified Qualified Code(s): R07.9 - Chest pain, unspecified Plan . Orders: Orders AMB Hemoglobin A1c Today Z13.9 - Encounter for screening, unspecified TSH reflex Free T4 Today R07.9 - Chest pain, unspecified Complete Blood Count no Diff Today R07.9 - Chest pain, unspecified Vitamin B12 and Folate Today R07.9 - Chest pain, unspecified Ferritin Today R07.9 - Chest pain, unspecified Magnesium Today R07.9 - Chest pain, unspecified Phosphorus Today R07.9 - Chest pain, unspecified Chloride Today R07.9 - Chest pain, unspecified Medications: Changed From metoprolol succinate ER 50 mg PO DAILY 90 tabs 1RF To metoprolol succinate ER 25 mg (1/2 x 50 mg) PO DAILY 90 tabs 1RF Refilled citalopram 20 mg PO DAILY 90 tabs 1RF metoprolol succinate ER 50 mg PO DAILY 90 tabs 1RF rosuvastatin 40 mg PO DAILY 90 tabs 1RF triamterene-hydrochlorothiazid 37.5-25 mg 1 cap PO DAILY 90 caps 0RF Discontinued meclizine Discontinued Reason: Patient Completed Course 25 mg PO BID PRN 60 tabs 0RF dizziness
[2024-07-14 12:08] VITALS: BP 98/69; PULSE 55; RESP 12; TEMP 36.4; O2SAT 98; BMI 35.7
--- OUTSIDE RECORDS SUMMARY | 2024-07-14 13:27 | XMS_ITS | Encounter Summary ---
Author Organization [facility] [place] [address] Care Team Providers Care Redye Hand Name Role Phone Pallavi Antunez MD Primary Care Provider Reason for Visit * Reason Onset Date Comments Medication Problem 06/28/2024 Encounter Details Date Type Department Care Team (Late st Contact Info) Description 06/28/2024 Telephone [facility] [address] [place] [address] Prakash Waller PA [address] [place] [address] Medication Problem Social History Tobacco Use Types Packs/Day Years Used Date Smoking Tobacco: Former Cigarettes 0.5 7.9 0 03/17/1984 - 02/17/1992 Smokeless Tobacco: Never Alcohol Use Standard Drinks/Week Comments Yes 0 (1 standard drink = 0.6 oz pur e alcohol) Comments Unknown Sex and Gender Information Value Date Recorded Sex Assigned at Not on file Legal Sex Female 4:48 AM EST Gender Identity Not on file Sexual Orientation Not on file documented as of this encounter Progress Notes * Maite Monaco RN - 06/30/2024 12:49 PM EDT Called patient, left VM to call her insurance and see what med is covered in place of Ozempic * Cherelle Nj - 06/28/2024 10:32 AM EDT Medication Problem: What is the name of the medication patient is having a problem with?: OZEMPIC 0.25-0.5MG DOSE What is the problem?: NOT COVERED BY INSURANCE Who is calling about the problem? : [facility] Is this a NEW medication?: yes How long has the patient been taking this medication? 06/02/24 Who prescribed this medication for the patient? PRAKASH WALLER Who is patients PCP?: Pallavi Antunez MD Payor: MARQUIS / Plan: [employer] PPO / Product Type: *No Product type* / documented in this encounter Plan of Treatment Upcoming Encounters Date Type Department Care Team (Late st Contact Info) Description 08/02/2024 3:45 PM EDT Office Visit Orthopedic Surgery [place] [id number] [phone] Blade Mcfarlane, DPM [address] [address] 01/07/2025 9:40 AM EDT Office Visit Endocrinology - [address] [address] Prakash Waller PA [address] [place] [address] documented as of this encounter Visit Diagnoses Not on filedocumented in this encounter Care Teams Redye Hand Relationship Specialty Start Date End Date Pallavi Antunez MD [address] [place] [id number] PCP - General Internal Medicine 06/11/21 documented as of this encounter
--- OUTSIDE RECORDS SUMMARY | 2024-07-14 13:28 | XMS_ITS | Data Portability ---
Author Organization [place] 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 ? ?ni? ? ?re's disease have changed in a way that it is likely that she is now experiencing vestibular migraine. Today we discussed the pathophysiology of migraine and migraine associated phenomena such as dizziness and visual aura. We discussed how the patient's balance disturbance symptoms are likely mediated by a central processing abnormality rather than an isolated inner ear abnormality. I gave the patient a significant amount of literature to review at home regarding how there are many environmental and dietary triggers that can lead to not only migraine headaches but balance disturbance symptoms as well. We spent a lot of time discussing the importance of following a migraine diet. We have offered the patient a copy of the Heal Your Headache book to read at home, which gives a tadm-ya-zhof discussion on what causes migraine and how to make the necessary lifestyle and dietary changes to significantly reduce or eliminate migraine symptoms. I have also recommended the use of dietary supplements magnesium, vitamin B2 and feverfew which have been shown to help control migrainous phenomena. We discussed dosage and schedule for these supplements. We discussed alternative of using Migranol, which contains a combination of magnesium, vitamin B2, and feverfew. We discussed the use of timolol ophthalmic drops as a potential vestibular migraine abortive. Instructions given on how to use this drop as needed for onset of symptoms. In light of her snoring and elevated BMI, there is a possibility that she may be experiencing obstructive sleep apnea as a trigger for her symptoms. Will order sleep study for further evaluation. [email or web address] Not available 06/15/2024 14:36:46 Plan of Treatment Reminders Order Date Submit Date Provider Last Modified By Organization Details Last Modified Time Details Appointments None recorded. Lab None recorded. Referral None recorded. Procedures polysomnogr aphy, diagnostic (PROC) 2024 025 [email or web address], [address] [place] [address], [address], 11:58:16 Surgeries None recorded. Imaging None recorded. Medication Orders timolol 0.5 % eye drops 2024 025 [id number], [address] [place], [address], 14:33:29 Patient TargetsNo targets recorded. Patient InstructionsNo instructions recorded. Reason for Referral None Reported. Results Created Date Observation Date Name Description Value Unit Range Abnormal Flag Note LastModifiedBy Organization Detail LastModifiedTime 06/30/1906/30/2024 ELECT ROLYT E PANEL sodium 135 mmol/ L 134-14 4 normal Not Available [facility] ([facility]) [address] [place], [address], 06/30/2024 02:17:00 06/30/1906/30/2024 ELECT ROLYT E PANEL potassium 3.7 mmol/ L 3.5-5. 2 normal Not Available [facility] ([facility]) [address] [place], [address], 06/30/2024 02:17:00 06/30/1906/30/2024 ELECT ROLYT E PANEL chloride 93 mmol/ L 96-106 below low normal Not Available [facility] ([facility]) [address] [place], [address], 06/30/2024 02:17:00 06/30/1906/30/2024 ELECT ROLYT E PANEL carbon dioxide, total 21 mmol/ L 20-29 normal Not Available [facility] ([facility]) [address], [place], [address], 06/30/2024 02:17:00 06/16/19 25 audio gram No observ ation record ed. BARCODE Not Available 2024 14:42:30 Result Notes None recorded. Problems Name Problem SNOMED Code Status Onset Date Resolution Date Notes Provider Name and Address Organization Details Recorded Time Dizziness and giddiness 038659161 Active 2017 Dizziness and giddiness ; Note: Date Diagnosed : 8 2:49 PM (R42) Not Available [facility] 4 02:56:08 Sensorine ural hearing loss 15998177 Active 2020 Sensorine ural hearing loss, unilatera l, right ear, with unrestric mirela hearing on the contralat eral side; Note: Date Diagnosed : 11/22/2020 12:19 PM (H90.41) Not Available [facility] 4 02:56:08 Tinnitus of right ear 07580516664 08 Active 2020 Tinnitus, right ear; Note: Date Diagnosed : 11/22/2020 12:19 PM (H93.11) Not Available [facility] 4 02:56:10 M? ? ?ni? ? ?re's disease 58731352 Active 2017 Meniere's disease, right ear; Note: Date Diagnosed : 8 3:12 PM (H81.01) Not Available [facility] 4 02:56:07 Impacted cerumen in right ear [id number] 01680 Active 2022 Impacted cerumen, right ear; Note: Date Diagnosed : 3 9:47 AM (H61.21) Not Available [facility] 4 02:56:10 Nasal congestio n 71981334 Active 2018 Nasal congestio n; Note: Date Diagnosed : 05/05/2018 3:35 PM (R09.81) Not Available [facility] 4 02:56:08 Sensorine ural hearing loss in right ear 39187921435 100 Active 2024 JAIME FERREIRA [address] [facility] [address], [place], [address] , [facility] - [facility] 13:44:15 Migraine variants 281975873 Active 2024 CHRISTINE ANN MD [address] [facility] [address], [place], [address] , [facility] - [facility] [place] 14:31:11 Vertigo of central origin 92876318 Active 2024 CHRISTINE ANN MD [address] [facility] [address], [place], [address] , [facility] - [facility] [place] 14:31:11 Snoring 10128927 Active 2024 CHRISTINE ANN MD [address] [facility] [address], [place], [address] , [facility] - [facility] 14:31:58 Obesity 928126673 Active 2024 CHRISTINE ANN MD [address] [facility] [address], [place], [address] , [facility] - [facility] [place] 14:33:39 Problem Notes None recorded. Procedures Surgical History Date Name Laterality Status Provider Name and Address Organization Details Recorded Time 06/15/2024 Comp Audio with Tymps (86307 & 34224) completed JAIME FERREIRA [address] [facility] [address], [place], [address], [facility] - [facility] [place] 06/15/2024 13:43:37 Imaging Results Imaging Date Name Status LastModified by Organiz ation Details LastModified Time 06/15/2024 audiogram completed BARCODE Information no t available 06/15/2024 14:42:30 Procedure Notes None recorded. Medical Equipment None Reported. Allergies No known drug allergies Medications Name Sig Start Date Stop Date Status Note LastModified by Organization Details LastModified Time silver sulfadiaz ine 1 % topical cream APPLY TOPICALL Y 1 TIME EACH DAY. active Not Available Not Available No t Available fluconazo le 150 mg tablet 02/27 completed Medicati on ID: [id number] B rand Name: fluconaz ole Send Method: E-Prescr ibed Sub s Allowed: subs OK Medic ationGen ericName : fluconaz ole Not Available Not Available Not Available metoprolo l succinate ER 50 mg tablet,ex tended release 24 hr TAKE 1 TABLET BY MOUTH EVERY DAY active Not Available Not Available No t Available clonazepa m 0.5 mg tablet 1 tablet by mouth 11/22 completed Medicati on ID: [id number] P rescribe d By Name: Latoya Corbett nd Name: clonazep am Send Method: E-Prescr ibed Sub s Allowed: subs OK Speci al Instruct ion: as needed for vertigo episodes Medicat ionGener icName: clonazep am Not Available Not Available Not Available Cleve Low Dose Aspirin 81 mg tablet,de layed release 10/17 completed Medicati on ID: [id number] B rand Name: Cleve Low Dose Aspirin Send Method: E-Prescr ibed Sub s Allowed: subs OK Medic ationGen ericName : Cleve Low Dose Aspirin Not Available Not Available Not Available sulfameth oxazole 800 mg-trimet hoprim 160 mg tablet PLEASE SEE ATTACHED FOR DETAILED DIRECTIO NS 06/15 completed Not Available Not Available Not Available triamtere ne 37.5 mg-hydroc hlorothia zide 25 mg capsule TAKE 1 CAPSULE BY MOUTH EVERY DAY active Not Available Not Available No t Available glimepiri de 1 mg tablet 10/17 completed Medicati on ID: [id number] D uration Value: 90 Brand Name: glimepir genaro Send Method: E-Prescr ibed Sub s Allowed: subs OK Medic ationGen ericName : glimepir genaro Not Available Not Available Not Available citalopra m 20 mg tablet TAKE 1 TABLET BY MOUTH EVERY DAY active Not Available Not Available No t Available meclizine 25 mg tablet TAKE 1 TABLET BY MOUTH TWICE A DAY NEEDED FOR DIZZINES S 06/15 completed Not Available Not Available Not Available timolol 0.5 % eye drops INSTILL 1 DROP INTO EACH EYE AT OUTSET OF SYMPTOMS UP TO 2 TIMES A DAY active Not Available Not Available No t Available metformin 1,000 mg tablet 11/22 completed Medicati on ID: [id number] D uration Value: 90 Brand Name: metformi n Send Method: E-Prescr ibed Sub s Allowed: subs OK Medic ationGen ericName : metformi n Not Available Not Available Not Available triamtere ne 37.5 mg-hydroc hlorothia zide 25 mg tablet Take 1 tablet by mouth once a day 07/25 completed Medicati on ID: [id number] D uration Value: 90 Prescri bed By Name: Liliana Shultz PA-C Bra nd Name: triamter yas-hydr ochlorot hiazid S end Method: E-Prescr ibed Sub s Allowed: subs OK Speci al Instruct ion: TAKE 1 TABLET BY MOUTH EVERY DAY Medi cationGe nericNam e: triamter yas-hydr ochlorot hiazid Not Available Not Available Not Available metoprolo l succinate ER 25 mg tablet,ex tended release 24 hr 10/17 completed Medicati on ID: [id number] D uration Value: 30 Brand Name: metoprol ol succinat e Send Method: E-Prescr ibed Sub s Allowed: subs OK Medic ationGen ericName : metoprol ol succinat e Not Available Not Available Not Available insulin lispro (U-100) 100 unit/mL subcutane ous pen PLEASE SEE ATTACHED FOR DETAILED DIRECTIO NS active Not Available Not Available No t Available Vitamin D3 25 mcg (1,000 unit) capsule 10/17 completed Medicati on ID: [id number] B rand Name: Vitamin D3 Send Method: E-Prescr ibed Sub s Allowed: subs OK Medic ationGen ericName : Vitamin D3 Not Available Not Available Not Available rosuvasta tin 40 mg tablet TAKE 1 TABLET BY MOUTH EVERY DAY active Not Available Not Available No t Available Trulicity 1.5 mg/0.5 mL subcutane ous pen injector 10/17 completed Medicati on ID: [id number] D uration Value: 84 Brand Name: Trulicit y Send Method: E-Prescr ibed Sub s Allowed: subs OK Medic ationGen ericName : Trulicit y Not Available Not Available Not Available Juan Pablo ValentinoikPen U-100 Insulin 100 unit/mL (3 mL) subcutane ous INJECT 46 TO 56 UNITS SUBCUTAN EOUSLY AT BEDTIME active Not Available Not Available No t Available BD Maya 2nd Gen Pen Needle 32 gauge x USE TO INJECT INSULIN UP TO 3 TIMES A DAY 06/15 completed Not Available Not Available Not Available Rybelsus 14 mg tablet 06/15 completed Medicati on ID: [id number] B rand Name: Rybelsus Send Method: E-Prescr ibed Sub s Allowed: subs OK Medic ationGen ericName : Rybelsus Not Available Not Available Not Available Rybelsus 7 mg tablet TAKE 1 TABLET BY MOUTH EVERY DAY 06/15 completed Not Available Not Available Not Available FreeStyle Qamar 2 Sensor kit 02/27 completed Medicati on ID: [id number] B rand Name: FreeStyl e Qamar 2 Sensor S end Method: E-Prescr ibed Sub s Allowed: subs OK Medic ationGen ericName : FreeStyl e Qamar 2 Sensor Not Available Not Available Not Available Sutab 1.479-0.1 88-0.225 gram tablet INSTRUCT ED ON PACKAGE LABELLIN G 06/15 completed Not Available Not Available Not Available FreeStyle Qamar 3 Sensor device 1 EACH BY DOES NOT APPLY ROUTE SEE ADMIN INSTRUCT IONS. E11.65 USE ONE SENSOR EVERY 14 DAYS active Not Available Not Available No t Available Ozempic 0.25 mg or 0.5 mg (2 mg/3 mL) subcutane ous pen injector USE 0.25MG ONCE WEEKLY active Not Available Not Available No t Available Vitals None Recorded Social History None recorded. Functional Status None recorded. Mental Status None recorded. Family History Nothing Reported. Medical History Condition Response Diabetes Y Hypertension Y Depression Y High Cholesterol Y Gynecological HistoryNo gynecological history recorded. Obstetrics History GPAL:G 0 P 0 0 0 0 Past Encounters Encounter ID Performer Location Encounter Start Date Encounter Closed Date Diagnosis/Indication Diagnosis SNOMED-CT Code Diagnosis ICD10 Code Diagnosis Note [id number] CHRISTINE ANN MD [facility] [address] [place] [address] 06/15/2024 13:19:42 06/15/2024 14:37:22 M? ? ?ni? ? ?re's disease 76917171 H81.01 Sensorineu ral hearing loss in right ear [id number] 9100 H90.41 Audiologic al evaluation results: 06/15/2024Ri t ear:{{Norm al Normal through 2 kHz Mild M oderate* M oderately- severe Sev ere Profou nd}} {{hearing hearing. s loping to a mild slopi ng to a moderate s loping to moderately severe slo ping to severe slo ping to profound f lat* high frequency low frequency mid frequency cookie bite bang curve}} {{with sen sorineural hearing loss with* cond uctive hearing loss with mixed hearing loss with}} {{excellen t good kirk r* poor no measurable }} word recognitio n.Left ear:{{Norm al* Normal through 2 kHz Mild M oderate Mo derately-s evere Jayashree re Profoun d}} {{hearing* hearing. sloping to a mild slopi ng to a moderate s loping to moderately severe slo ping to severe slo ping to profound f lat high frequency low frequency mid frequency cookie bite bang curve}} {{with* se nsorineura l hearing loss with condu ctive hearing loss with mixed hearing loss with}} {{excellen t* good fa ir poor no measurable }} word recognitio n. Tympanomet ry:Right Ear:{{Type A* Type A with rounded peak Type A with double peak Type As Type As with rounded peak Type Ad Type C Type C, shallow & rounded peak Type B Type B with large volume Cou ld not maintain a hermetic seal}}Left Ear:{{Type A Type A with rounded peak Type A with double peak Type As* Type As with rounded peak Type Ad Type C Type C, shallow & rounded peak Type B Type B with large volume Cou ld not maintain a hermetic seal}} Migraine variants 084995 005 G43.809 Vertigo of central origin 12561775 H81.4 Snoring 62517687 R06.83 Obesity 243629484 E66.9 Health Concerns Section Related Observation LastModified by Organization Detai ls LastModified Time None Recorded Concern Status LastModified by Organization Details LastModified Time None Recorded Advance Directives Directive None Recorded Payers Encounter Date Sequence Insurance Name Policy Number Policy [employer] Covered Member ID Orosco Member ID Guarantor Name 06/15/2024 1 [facility] [id number] [place] Almaguer [id number] [place] Almaguer Notes Date Note Type Note Provider Name and Address Organization Details Recorded Time 06/15/2024 text/html 58-year-old michael aggarwal with history of 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 Patient's symptoms have historically been well-managed with low-sodium diet and use of triamterene/hydroch lorothiazide. Patient using right sided amplification managed through our office which she has been pleased with.Patient reports that over the last 4 to 6 months, she has had an exacerbation of intermittent balance disturbance. Patient spells will start with a headache, then be followed by a right sided pressure sensation and tinnitus. Then she will get dizziness which will last until she goes to sleep for few hours, then she will wake up and she will feel tired but the dizziness will have subsided. She is not sure if the hearing is actually fluctuating or not. Patient does have history of rather severe frequent headaches in her younger years, but she is not getting as many headaches recently (approximately 3 headaches per month). No significant history of ocular migraine. CHRISTINE ANN MD [address] [place] [address], [place], [address], [place] [facility] 06/15/2024 14:37:33 OBGyn Episode No OBEpisode recorded.
--- OUTSIDE RECORDS SUMMARY | 2024-07-14 13:28 | XMS_ITS | Clinical Summary ---
Author Organization [facility] Address [address] [place] [address] Phone Care Team Providers Care Commercial Lines Insurance Agent Name Role Phone Pallavi Antunez MD Primary Care Provider Allergies Active Allergy Reactions Criticality Noted Date Comments Amoxicillin-Pot Clavulanate 11/10/19 20 Other Reaction(s): Rash/Dermatitis Medications BABY ASPIRIN ORAL Take by mouth. Active citalopram (CeleXA) 20 mg tablet TAKE 1 TABLET BY MOUTH EVERY DAY 4 Active clobetasoL (TEMOVATE) 0.05 % cream Apply topically twice weekly. Wash hands following application. 8 Active blood-glucose sensor (FREESTYLE MARYANN 3 SENSOR MISC) 1 Each by Does not apply route See Admin Instructions. E11.65 Use one sensor every 14 days 4 Active FREESTYLE LANCETS MISC 1 Each by Does not apply route 2 times daily. 0 Active blood sugar diagnostic (FreeStyle Lite Strips) test strip 1 Strip by In Vitro route 4 times daily. 0 Active blood-glucose meter kit Inject 1 Each into the skin 2 times daily. 0 Active pen needle, diabetic 32 gauge x 32 needle USE TO INJECT INSULIN up to 3 times a day 4 Active ketoconazole (NIZORAL) 2 % cream Apply thin layer to affected areas daily x 2-3 weeks until rash is resolved 2 Active metoprolol succinate (TOPROL-XL) 50 mg 24 hr tablet TAKE 1 TABLET BY MOUTH EVERY DAY 4 Active mometasone (ELOCON) 0.1 % cream Apply topically 2 times daily. Active rosuvastatin (CRESTOR) 40 mg tablet TAKE 1 TABLET BY MOUTH EVERYDAY AT BEDTIME 4 Active triamterene-hydro CHLOROthiazide (DYAZIDE) 37.5-25 mg per capsule TAKE 1 CAPSULE BY MOUTH EVERY MORNING. 1 Active cholecalciferol (VITAMIN D-3) 10 mcg (400 unit) tablet Take 400 Int'l Units by mouth. 1 Active silver sulfADIAZINE (Silvadene) 1 % cream Apply topically 1 (one) time each day. 50 g 5 05/18/19 26 Active insulin glargine,hum.rec. anlog (Basaglar KwikPen U-100 Insulin) 100 unit/mL (3 mL) injection penIndications:Ty pe 2 diabetes mellitus with stage 3 chronic kidney disease, with long-term current use of insulin, unspecified whether stage 3a or 3b CKD ([facility] V24, [facility] V28) Inject 50 Units into the skin at bedtime. Increase by 2 units every 3 days with a max dose of 64 units at bedtime, if fasting sugars remain over 130 60 mL 1 5 Active insulin lispro (HumaLOG KwikPen Insulin) 100 unit/mL injection penIndications:Ty pe 2 diabetes mellitus with stage 3 chronic kidney disease, with long-term current use of insulin, unspecified whether stage 3a or 3b CKD ([facility] V24, [facility] V28) INJECT BEFORE BREAKFAST, LUNCH AND DINNER: <100: 0 UNITS, 100-150: 8 UNITS, 151-200: 10 UNITS, 201-250: 12 UNITS, 251-300: 14 UNITS, 301-350: 16 UNITS, 351-400: 18 UNITS. >400: CALL ME. Max dose 54 units/day 45 mL 1 5 Active semaglutide (OZEMPIC) 0.25 mg or 0.5 mg (2 mg/3 mL) injection pen Use 0.25mg once weekly 3 mL 3 5 Active Active Problems Problem Noted Date Diagnosed Date Depression 01/29/2024 Palpitations 05/14/2021 Chest pain 05/14/2021 Severe obesity (BMI 35.0-39. 9) with comorbidity ([facility] V24, [facility] V28) 12/28/2020 Sensorineural hearing loss (SNHL) of right ear 1 Microalbuminuria 12/28/2020 CKD (chronic kidney disease) stage 3, GFR 30-59 ml/min ([facility] V24, [facility] V28) 02/14/2020 Abnormal mammogram 02/14/2020 Overview (01/29/2024): right breast/already scheduled for 6 months follow up in 04/2020 Meniere disease 02/05/2019 Overview (01/29/2024): Dr Montenegro Calcific tendinitis of left shoulder 02/05/2019 Iron deficiency anemia 01/26/2019 Hypertension 01/26/2019 Hyperlipidemia 01/26/2019 DM (diabetes mellitus), type 2 with renal complications ([facility] V24, [facility] V28) 01/26/2019 Lichen sclerosus 01/29/2016 Encounters Date Type Department Care Team Description 06/28/2024 Telephone Endocrinology [address] [phone] Adeline Churchill PA Medication Problem 06/02/2024 10:00 AM EDT Office Visit [address] [phone] Adeline Churchill PA Type 2 diabetes mellitus with stage 3 chronic kidney disease, with long-term current use of insulin, unspecified whether stage 3a or 3b CKD ([facility] V24, [facility] V28) (Primary Dx); Severe obesity (BMI 35.0-39.9) with comorbidity ([facility] V24, [facility] V28); Microalbuminuria 05/31/2024 9:00 AM EDT Office Visit Orthopedic Surgery - [address] [phone] Blade Mcfarlane, DPM Dermatophytosis of nail (Primary Dx); Ingrowing nail; Diabetic mononeuropathy simplex ([facility] V24, [facility] V28) 05/21/2024 Telephone Orthopedic Surgery [place] [address] [phone] Blade Mcfarlane DPM 05/19/2024 Telephone Endocrinology [address] [phone] Adeline Churchill PA Medication Problem (humalog) 05/17/2024 4:00 PM EST Consult Orthopedic Surgery [facility] [address] [phone] Blade Mcfarlane, DPM Ingrowing nail (Primary Dx); Pain in both feet; Diabetic mononeuropathy simplex ([facility] V24, [facility] V28) from Last 3 Months Immunizations Name Administration Dates Next Due Pneumococcal polysaccharide 23 valent (Pneumovax 23) 2yo and older 02/14/2020 Tdap Tetanus diptheria acell ular pertussis (Boostrix; Adacel) 7yo and older 09/09/2016,10/26/2008 Surgical History Surgery Date Site/Laterality Comments OTHER SURGICAL HISTORY 2003 Right PROCEDURE: PA ARTHRS AIDED ANT CRUCIATE LIGM RPR/AGMNTJ/RCNSTJ; COMMENT: meniscus repair Medical History Medical History Date Comments Arthritis DX:Arthritis Depression DX:Depression Hypertension 01/26/2019 DX:Hypertension Hyperlipidemia 01/26/2019 DX:Hyperlipidemi a Iron deficiency anemia 01/26/2019 DX:Iron d eficiency anemia Lichen sclerosus 01/29/2016 DX:Lichen scler osus Type 2 diabetes mellitus wit hout complication ([facility] V24, [facility] V28) 01/26/2019 DX:Type 2 diab etes mellitus without complication (HCC) DM (diabetes mellitus), type 2 with renal complications ([facility] V24, [facility] V28) 01/26/2019 DX:DM (diabetes mellitus), t ype 2 with renal complications (HCC) CKD (chronic kidney disease) stage 3, GFR 30-59 ml/min ([facility] V24, [facility] V28) 02/14/2020 DX:CKD (chronic kidney disea se) stage 3, GFR 30-59 ml/min ([facility]) Microalbuminuria 12/28/2020 DX:Microalbumin uria Sensorineural hearing loss ( SNHL) of right ear 12/28/2020 DX:Sensorineural hearing los s (SNHL) of right ear Severe obesity (BMI 35.0-39. 9) with comorbidity ([facility]/HCC V24, CMS/HCC V28) 12/28/2020 DX:Severe obesi ty (BMI 35.0- 39.9) with comorbidity (HCC) Family History Medical History Relation Name Comments Rheum arthritis Brother 1 Rajinder Emphysema Father late 50's or early 60's; HTN, depression, HLD Coronary artery disease Maternal Grandmother HTN, Kidney Disease Breast cancer Mother Colleen Rheum arthritis Mother Colleen diabetes, HT N, depression, HLD Colon cancer Neg Hx Ovarian cancer Neg Hx Uterine cancer Neg Hx Relation Name Status Comments Brother 1 Rajinder Alive Brother 2 Raj Alive Brother 3 Chase Alive Father (Age 50) emphysema Maternal Grandmother Mother Colleen Alive Social History Tobacco Use Types Packs/Day Years Used Date Smoking Tobacco: Former Cigarettes 0.5 7.9 0 03/17/1984 - 02/17/1992 Smokeless Tobacco: Never Tobacco Cessation:Counseling Given: Not Answered Alcohol Use Standard Drinks/Week Comments Yes 0 (1 standard drink = 0.6 oz pur e alcohol) Comments Unknown Sex and Gender Information Value Date Recorded Sex Assigned at Not on file Legal Sex Female 4:48 AM EST Gender Identity Not on file Sexual Orientation Not on file Obstetrics History Last Filed Vital Signs Vital Sign Reading Time Taken Comments Blood Pressure 122/69 06/02/2024 10:18 AM EDT Pulse 70 06/02/2024 10:18 AM EDT Temperature 35.8 ??C (96.4 ??F) 06/02/2024 10:18 AM E DT Respiratory Rate 16 03/04/2024 9:59 AM EST Oxygen Saturation 97% 06/02/2024 10:18 AM EDT Inhaled Oxygen Concentration - - Weight 102 kg (225 lb 3.2 oz) 06/02/2024 10:18 A M EDT Height 167.6 cm (5' 6 ) 06/02/2024 10:18 AM EDT Body Mass Index 36.35 06/02/2024 10:18 AM EDT Plan of Treatment Upcoming Encounters Date Type Department Care Team (Late st Contact Info) Description 08/02/2024 3:45 PM EDT Office Visit Orthopedic Surgery - [place] [address] [facility] [address] [place] [phone] Blade Mcfarlane, DPM [address] [address] 01/07/2025 9:40 AM EDT Office Visit Endocrinology - [place] [address] [place] [phone] Adeline Churchill PA [address] [place] [address] Health Maintenance Due Date Last Done Comments Diabetes: Annual Foot Exam 1976 Diabetes: Annual Retina Eye Exam 1976 Hepatitis B Vaccines (1 of 3 - 19+ 3-dose series) 1985 Cervical Cancer Screening: Pap Smear 08/14/2020 08/14/2017, 08/14/2017, 08/14/2017 COVID-19 Vaccine (3 - Pfizer risk series) 09/06/2020 08/09/2020, 07/19/2020 Pneumococcal Vaccine: 50+ Years (2 of 2 - PCV) 02/13/2021 02/14/2020 Pneumococcal Vaccine: Pediatrics (0 to 5 Years) and At-Risk Patients (6 to 64 Years) (2 of 2 - PCV) 02/13/2021 02/14/2020 Breast Cancer Screening 05/30/2021 05/31/2019 Colorectal Cancer Screening: Colonoscopy 02/23/2022 Depression Screening 02/23/2022 HIV Screening 02/23/2022 Hepatitis C Screening 02/23/2022 Social Influencers of Health Screening 02/23/2022 Zoster Vaccines (2 of 2) 06/09/2024 04/14/2024 Diabetes: Annual Urine Albumin-Creatinine Ratio (uACR) 11/04/2024 11/05/2023 Influenza Vaccine (Season Ended) 2024 Diabetes: Blood Sugar Control Test (HGBA1C) 12/02/2024 06/01/2024, 03/02/2024, 11/05/2023, Additional history exists Diabetes: Annual GFR (Glomerular Filtration Rate) 03/02/2025 03/02/2024, 07/09/2023, 07/09/2023 Hypertension/CHF/CAD Annual BMP Blood Test 03/02/2025 03/02/2024, 07/09/2023, 07/09/2023 DTaP,Tdap,and Td Vaccines (4 - Td or Tdap) 11/03/2028 11/03/2018, 09/09/2016, 10/26/2008 Cholesterol Screening (Lipid Panel) 11/04/2028 11/05/2023, 11/05/2023 HIB Vaccines Aged Out No longer eligi ble based on patient's age to complete this topic HPV Vaccines Aged Out No longer eligi ble based on patient's age to complete this topic Hepatitis A Vaccines Aged Out No long er eligible based on patient's age to complete this topic IPV Vaccines Aged Out No longer eligi ble based on patient's age to complete this topic MMR Vaccines Aged Out No longer eligi ble based on patient's age to complete this topic Meningococcal ACWY Vaccine Aged Out N o longer eligible based on patient's age to complete this topic Meningococcal B Vaccine Aged Out No l onger eligible based on patient's age to complete this topic RSV Immunization Patients Under 20 months Aged Out No longer eligible based on patient's age to complete this topic Varicella Vaccines Aged Out No longer eligible based on patient's age to complete this topic Procedures Procedure Name Priority Date/Time Associated Diagnosis Comments POC GLUCOSE Routine 06/02/2024 10:22 AM EDT Type 2 diabetes mellitus with stage 3 chronic kidney disease, with long-term current use of insulin, unspecified whether stage 3a or 3b CKD ([facility] V24, [facility] V28) HEMOGLOBIN A1C Routine 06/01/2024 11:31 AM EDT Type 2 diabetes mellitus with stage 3 chronic kidney disease, with long-term current use of insulin, unspecified whether stage 3a or 3b CKD ([facility] V24, [facility] V28) BASIC METABOLIC PANEL Routine 03/02/2024 10:05 AM EST Type II or unspecified type diabetes mellitus with renal manifestations, uncontrolled(250.42) ([facility] V24, [facility] V28) HM URINE ALBUMIN CREATININE RATIO Routine 11/05/2023 LIPID PANEL Routine 11/05/2023 DX MAMMO INCL CAD BI Routine 05/31/2019 11:07 AM EDT Changes in skin texture PAP SMEAR Routine 08/14/2017 from Last 3 Months or Most Recently Relevant to Health Maintenance Results * (ABNORMAL) POC glucose manually resulted (06/02/2024 10:22 AM EDT) Glucose POC 237 mg/dL Comment:non fasting Blood Capillary blood specimen / Unknown 06/02/2024 10:22 AM EDT Adeline DUENAS POINT OF CARE TEST ENTER/EDIT OR DERABLES Final Result * (ABNORMAL) Hemoglobin A1c (06/01/2024 11:31 AM EDT) Hemoglobin A1C 9.4(H) <6.5 % LAB CHEMISTRY METHOD 06/01/2024 8:56 PM EDT [facility] Mean Bld Glu Estim. 223 mg/dL LAB CHEMISTRY METHOD 06/01/2024 8:56 PM EDT [facility] Blood Venous blood specimen / Unknown Venipuncture / Unknown 06/01/2024 11:31 AM EDT 06/01/2024 11:31 AM EDT us Adeline DUENAS LAB BLOOD ORDERABLES Final Resul t [facility] [address] [place] [address], * (ABNORMAL) Basic metabolic panel (03/02/2024 10:05 AM EST) Sodium 137 133 - 145 mmol/L LAB CHEMISTRY METHOD 03/02/2024 1:03 PM [facility] Potassium 3.8 3.5 - 5.5 mmol/L LAB CHEMISTRY METHOD 03/02/2024 1:03 PM [facility] Chloride 101 96 - 110 mmol/L LAB CHEMISTRY METHOD 03/02/2024 1:03 PM [facility] CO2 32 21 - 32 mmol/L LAB CHEMISTRY METHOD 03/02/2024 1:03 PM [facility] Anion Gap 4 3 - 11 LAB CHEMISTRY METHOD 03/02/2024 1:03 PM [facility] Glucose 223(H) 70 - 100 mg/dL LAB CHEMISTRY METHOD 03/02/2024 1:03 PM [facility] BUN 13 5 - 25 mg/dL LAB CHEMISTRY METHOD 03/02/2024 1:03 PM [facility] Creatinine 0.99 0.50 - 1.10 mg/dL LAB CHEMISTRY METHOD 03/02/2024 1:03 PM [facility] eGFR 67 >=60 mL/min/1. 73m2 LAB CHEMISTRY METHOD 03/02/2024 1:03 PM [facility] Comment:Calculation based on the??Chronic Kidney Disease Epidemiology Collaboration (CKD-EPI) equation refit??without adjustment for race. BUN/Creatinine Ratio 13.1 LAB CHEMISTRY METHOD 03/02/2024 1:03 PM [facility] Calcium 9.2 8.5 - 10.5 mg/dL LAB CHEMISTRY METHOD 03/02/2024 1:03 PM [facility] Blood Venous blood specimen / Unknown Venipuncture / Unknown 03/02/2024 10:05 AM EST 03/02/2024 10:05 AM EST us Adeline DUENAS LAB BLOOD ORDERABLES Final Resul t [facility] [address] [place] [address], [place] [phone] * Urine Albumin Creatinine Ratio (11/05/2023) Urine Albumin Creatinine Ratio Abstracted Historical Provider HEALTH MAINTENANCE Final Result * (ABNORMAL) Lipid panel (11/05/2023) LDL/HDL Ratio 3 0 - 4 Triglycerides 157(A) 0 - 150 mg/dL Cholesterol 135 0 - 200 mg/dL HDL 47 >=40 mg/dL LDL Cholesterol 57 0 - 100 mg/dL Blood Venous blood specimen / Unknown Historical Provider LAB BLOOD ORDERABLES Yuridia l Result * DX MAMMO INCL CAD BI (05/31/2019 11:07 AM EDT) Anatomical Region Laterality Modality Mammography 05/24/2019 9:35 AM EDT Narrative 05/31/2019 11:10 AM EDT This is a summary report. The complete report is available in the patient's medical record. If you cannot access the medical record, please contact the sending organization for a detailed fax or copy. Exam: Diagnostic left mammogram and left breast ultrasound History: Raised erythematous ring around nipple with itchiness and possible discharge from the area. ??No definite nipple discharge per patient. ??No palpable lump. ??Mother with history of Paget's. Findings: Digital unilateral left full-field diagnostic mammography is performed and interpreted with the aid of computer-aided detection. ??Comparison is made with 09/02/2018. ?? Breast parenchyma is composed of scattered fibroglandular densities. ??Skin thickening around the nipple and areolar region.. No new suspicious mass, architectural distortion, or suspicious calcifications. Ultrasound shows soft tissue thickening around the nipple which has heterogeneous appearance and minimal vascularity. ??No retroareolar solid or cystic lesion. ??No ductal dilatation. Impression: Nonspecific skin thickening around the nipple and areolar region. ??No suspicious breast mass. ??Skin thickening can be seen with inflammatory processes as well as malignancy. ??Recommend surgical consultation with consideration for punch biopsy. Patient plans to schedule an appointment with her mother's physician at [facility]. BI-RADS 2-benign Procedure Note Daina Arreaga MD - 03/05/2022 This is a summary report. The complete report is available in thepatient's medical record. If you cannot access the medical record, pleasecontact the sending organization for a detailed fax or copy. Exam: Diagnostic left mammogram and left breast ultrasound History: Raised erythematous ring around nipple with itchiness andpossible discharge from the area. No definite nipple discharge perpatient. No palpable lump. Mother with history of Paget's. Findings: Digital unilateral left full-field diagnostic mammography isperformed and interpreted with the aid of computer-aided detection.Comparison is made with 09/02/2018. Breast parenchyma is composed of scattered fibroglandular densities. Skinthickening around the nipple and areolar region.. No new suspicious mass,architectural distortion, or suspicious calcifications. Ultrasound shows soft tissue thickening around the nipple which hasheterogeneous appearance and minimal vascularity. No retroareolar solidor cystic lesion. No ductal dilatation. Impression: Nonspecific skin thickening around the nipple and areolar region. Nosuspicious breast mass. Skin thickening can be seen with inflammatoryprocesses as well as malignancy. Recommend surgical consultation withconsideration for punch biopsy. [facility] BI-RADS 2-benign Millie HALL IMG BI PROCEDURES Final Resul t * Pap smear (08/14/2017) 08/14/2017 Narrative HISTORICAL TESTING LAB RESULTING AGENCY - 08/18/2017 2:37 PM EDT [id number] THINPREP PAP, IMAGED: NEGATIVE FOR SQUAMOUS INTRAEPITHELIAL LESION AND MALIGNANCY ??. RESULT OF APTIMA HIGH RISK HPV ASSAY: ? NEGATIVE ?? (SEROTYPES 16,18,31,33,35,39,45,51,52,56,58,59,66,68) ANDRES VERONICA(ASCP) (CASE ELECTRONICALLY SIGNED 08 18 2017) ADEQUACY: SATISFACTORY. ENDOCERVICAL/TRANSFORMATION ZONE COMPONENT PRESENT. SOURCE: THINPREP PAP HPV ANY DX: ??REFLEX 16 AND 18, CERVICAL, IMAGED: CLINICAL INFORMATION: HPV ANY DIAGNOSIS. Z12.4, Z01.419 us America Ring MD LAB CYTOLOGY ORDERABLES Final R esult HISTORICAL TESTING LAB RESULTING AGENCY from Last 3 Months or Most Recently Relevant to Health Maintenance Insurance [address] [place] [address] [employer] Care Teams Commercial Lines Insurance Agent Relationship Specialty Start Date End Date Pallavi Antunez MD [address] [place] [phone] PCP - General Internal Medicine 06/11/21
== END 2024-07-14 13:08 | disposition home or self-care (01) ==
LOC: HO.HMCFM 11:58
PROVIDERS: PCP Nurse Practitioner Family; Visit Provider Nurse Practitioner Family
DX: Z00.00 Encounter for general adult medical examination without abnormal findings (principal); E11.69 Type 2 diabetes mellitus with other specified complication; E11.59 Type 2 diabetes mellitus with other circulatory complications; Z79.4 Long term (current) use of insulin; E66.01 Morbid (severe) obesity due to excess calories; R07.9 Chest pain, unspecified; Z68.35 Body mass index [BMI] 35.0-35.9, adult; E78.5 Hyperlipidemia, unspecified; I15.2 Hypertension secondary to endocrine disorders; L90.0 Lichen sclerosus et atrophicus; F33.0 Major depressive disorder, recurrent, mild; H81.01 Meniere's disease, right ear

== ENCOUNTER → 2024-07-14 11:57 | Outpatient (BNVA) | payer OTHER, SELFPAY | PROVIDERS: PCP Nurse Practitioner Family; Visit Provider Nurse Practitioner Family | DX: Z00.00 Encounter for general adult medical examination without abnormal findings (principal); E11.69 Type 2 diabetes mellitus with other specified complication; E78.5 Hyperlipidemia, unspecified; E11.59 Type 2 diabetes mellitus with other circulatory complications; I15.2 Hypertension secondary to endocrine disorders; L90.0 Lichen sclerosus et atrophicus; F33.0 Major depressive disorder, recurrent, mild; H81.01 Meniere's disease, right ear; R07.9 Chest pain, unspecified; E66.01 Morbid (severe) obesity due to excess calories; Z68.35 Body mass index [BMI] 35.0-35.9, adult; Z78.0 Asymptomatic menopausal state; Z79.899 Other long term (current) drug therapy | CPT/HCPCS: 83036; 93005; 96127 ==

== ENCOUNTER 2024-07-14 13:23 | Outpatient (REF) | payer OTHER, SELFPAY ==
[2024-07-14 14:25] LABS: Hematocrit 37.5 % (37.0-47.0); Hemoglobin 12.6 g/dl (12.0-16.0); Mean Corpuscular HGB Conc 33.6 g/dl (31.0-35.0); Mean Corpuscular Hemoglobin 29.9 pg (27.0-33.0); Mean Corpuscular Volume 89.1 fL (80.0-98.0); Mean Platelet Volume 9.6 fL (9.4-12.3); Platelet Count 263 X10*3/uL (160-400); Red Blood Count 4.21 X10*6/uL (4.20-5.50)
--- OUTSIDE RECORDS SUMMARY | 2024-07-14 14:45 | XMS_ITS | Encounter Summary ---
Author Organization [facility] [place] [address] Care Team Providers Care Neonatal Icu Coordinator Name Role Phone Pallavi Antunez MD Primary Care Provider Reason for Visit * Reason Onset Date Comments Medication Problem 06/28/2024 Encounter Details Date Type Department Care Team (Late st Contact Info) Description 06/28/2024 Telephone [facility] [place] [address] [place] [phone] Prakash Waller PA [address] [place] [address] Medication Problem Social History Tobacco Use Types [...] prescribed this medication for the patient? PRAKASH WALLRE Who is patients PCP?: Pallavi Antunez MD Payor: MARQUIS / Plan: [employer] PPO / Product Type: *No Product type* / documented in this encounter Plan of Treatment Upcoming Encounters Date Type Department Care Team (Late st Contact Info) Description 08/02/2024 3:45 PM EDT Office Visit Orthopedic Surgery [place] [address] [phone] Blade Mcfarlane, DPM [address] [address] 01/07/2025 9:40 AM EDT Office Visit Endocrinology - [address] [phone] Prakash Waller PA [address] [place] [address] documented as of this encounter Visit Diagnoses Not on filedocumented in this encounter Care Teams Neonatal Icu Coordinator Relationship Specialty Start Date End Date Pallavi Antunez MD [address] [place] [phone] PCP - General Internal Medicine 06/11/21 documented as of this encounter
--- OUTSIDE RECORDS SUMMARY | 2024-07-14 14:45 | XMS_ITS | Clinical Summary ---
Author Organization [address] [facility] Address [address] [place] [address] Phone Care Team Providers Care Patch Machine Operator Name Role Phone Pallavi Antunez MD Primary [...] unspecified whether stage 3a or 3b CKD ([facility] V24, [facility] V28) Inject 50 Units into the skin [...] unspecified whether stage 3a or 3b CKD ([facility] V24, [facility] V28) INJECT BEFORE BREAKFAST, LUNCH AND DINNER: [...] Severe obesity (BMI 35.0-39. 9) with comorbidity ([facility] V24, [facility] V28) 12/28/2020 Sensorineural hearing loss (SNHL) of right ear 1 Microalbuminuria 12/28/2020 CKD (chronic kidney disease) stage 3, GFR 30-59 ml/min ([facility] V24, [facility] V28) 02/14/2020 Abnormal mammogram 02/14/2020 Overview (01/29/2024): right breast/already scheduled for 6 months follow up in 04/2020 Meniere disease 02/05/2019 Overview (01/29/2024): Dr Montenegro Calcific tendinitis of left shoulder 02/05/2019 Iron deficiency anemia 01/26/2019 Hypertension 01/26/2019 Hyperlipidemia 01/26/2019 DM (diabetes mellitus), type 2 with renal complications ([facility] V[facility], [facility] V28) 01/26/2019 Lichen sclerosus 01/29/2016 Encounters Date Type Department Care Team Description 06/28/2024 Telephone Endocrinology [address] [phone] Adeline Churchill PA Medication Problem 06/02/2024 10:00 AM EDT Office Visit [address] [phone] Adeline Churchill PA Type 2 diabetes mellitus with stage 3 chronic kidney disease, with long-term current use of insulin, unspecified whether stage 3a or 3b CKD ([facility] V24, [facility] V28) (Primary Dx); Severe obesity (BMI 35.0-39.9) with comorbidity ([facility] V24, [facility] V28); Microalbuminuria 05/31/2024 9:00 AM EDT Office Visit Orthopedic Surgery - [address] [phone] Blade Mcfarlane, DPM Dermatophytosis of nail (Primary Dx); Ingrowing nail; Diabetic mononeuropathy simplex ([facility] V24, [facility] V28) 05/21/2024 Telephone Orthopedic Surgery [place] [phone] [phone] Blade Mcfarlane DPM 05/19/2024 Telephone Endocrinology [address] [phone] Adeline Churchill PA Medication Problem (humalog) 05/17/2024 4:00 PM EST Consult Orthopedic Surgery [facility] [address] [phone] Blade Mcfarlane, DPM Ingrowing nail (Primary Dx); Pain in both feet; Diabetic mononeuropathy simplex ([facility] V24, [facility] V28) from Last 3 Months Immunizations Name Administration Dates Next Due Pneumococcal polysaccharide 23 valent (Pneumovax 23) 2yo and older 02/14/2020 Tdap Tetanus diptheria acell ular pertussis (Boostrix; Adacel) 7yo and older 09/09/2016,10/26/2008 Surgical History Surgery Date Site/Laterality Comments OTHER SURGICAL HISTORY 2003 Right PROCEDURE: [place] ARTHRS AIDED ANT CRUCIATE LIGM RPR/AGMNTJ/RCNSTJ; COMMENT: meniscus repair Medical History Medical History Date Comments Arthritis DX:Arthritis Depression DX:Depression Hypertension 01/26/2019 DX:Hypertension Hyperlipidemia 01/26/2019 DX:Hyperlipidemi a Iron deficiency anemia 01/26/2019 DX:Iron d eficiency anemia Lichen sclerosus 01/29/2016 DX:Lichen scler osus Type 2 diabetes mellitus wit hout complication ([facility] V[facility], [facility] V28) 01/26/2019 DX:Type 2 diab etes mellitus without complication (HCC) DM (diabetes mellitus), type 2 with renal complications ([facility] V[facility], [facility] V28) 01/26/2019 DX:DM (diabetes mellitus), t ype 2 with renal complications (HCC) CKD (chronic kidney disease) stage 3, GFR 30-59 ml/min ([facility] V24, [facility] V28) 02/14/2020 DX:CKD (chronic kidney disea se) stage 3, GFR 30-59 ml/min ([facility]) Microalbuminuria 12/28/2020 DX:Microalbumin uria Sensorineural hearing loss [...] PM EDT Office Visit Orthopedic Surgery - [place] 250 175 [facility] [address] [place] [phone] Blade Mcfarlane, DPM [address] [address] 01/07/2025 9:40 AM EDT Office Visit Endocrinology - [place] [address] [place] [phone] Adeline Churchill PA [address] [place] [address] Health Maintenance Due Date Last Done Comments [...] unspecified whether stage 3a or 3b CKD ([facility] V24, [facility] V28) HEMOGLOBIN A1C Routine 06/01/2024 11:31 AM EDT Type 2 diabetes mellitus with stage 3 chronic kidney disease, with long-term current use of insulin, unspecified whether stage 3a or 3b CKD ([facility] V24, [facility] V28) BASIC METABOLIC PANEL Routine 03/02/2024 10:05 AM EST Type II or unspecified type diabetes mellitus with renal manifestations, uncontrolled(250.42) ([facility] V24, [facility] V28) HM URINE ALBUMIN CREATININE RATIO Routine [...] LAB CHEMISTRY METHOD 06/01/2024 8:56 PM EDT [facility] Mean Bld Glu Estim. 223 mg/dL LAB CHEMISTRY METHOD 06/01/2024 8:56 PM EDT [facility] Blood Venous blood specimen / Unknown Venipuncture / Unknown 06/01/2024 11:31 AM EDT 06/01/2024 11:31 AM EDT us Adeline DUENAS LAB BLOOD ORDERABLES Final Resul t [facility] [address] [place] [address], * (ABNORMAL) Basic metabolic panel (03/02/2024 10:05 AM EST) Sodium 137 133 - 145 mmol/L LAB CHEMISTRY METHOD 03/02/2024 1:03 PM [facility] Potassium 3.8 3.5 - 5.5 mmol/L LAB CHEMISTRY METHOD 03/02/2024 1:03 PM [facility] Chloride 101 96 - 110 mmol/L LAB CHEMISTRY METHOD 03/02/2024 1:03 PM [facility] CO2 32 21 - 32 mmol/L LAB CHEMISTRY METHOD 03/02/2024 1:03 PM [facility] Anion Gap 4 3 - 11 LAB CHEMISTRY METHOD 03/02/2024 1:03 PM [facility] Glucose 223(H) 70 - 100 mg/dL LAB CHEMISTRY METHOD 03/02/2024 1:03 PM [facility] BUN 13 5 - 25 mg/dL LAB CHEMISTRY METHOD 03/02/2024 1:03 PM [facility] Creatinine 0.99 0.50 - 1.10 mg/dL LAB CHEMISTRY METHOD 03/02/2024 1:03 PM [facility] eGFR 67 >=60 mL/min/1. 73m2 LAB CHEMISTRY METHOD 03/02/2024 1:03 PM [facility] Comment:Calculation based on the??Chronic Kidney Disease Epidemiology Collaboration (CKD-EPI) equation refit??without adjustment for race. BUN/Creatinine Ratio 13.1 LAB CHEMISTRY METHOD 03/02/2024 1:03 PM [facility] Calcium 9.2 8.5 - 10.5 mg/dL LAB CHEMISTRY METHOD 03/02/2024 1:03 PM [facility] Blood Venous blood specimen / Unknown Venipuncture / Unknown 03/02/2024 10:05 AM EST 03/02/2024 10:05 AM EST us Adeline DUENAS LAB BLOOD ORDERABLES Final Resul t [facility] [address] [place] [address], [place] [phone] * Urine Albumin Creatinine Ratio (11/05/2023) Urine [...] an appointment with her mother's physician at [facility]. BI-RADS 2-benign Procedure Note Daina Arreaga MD [...] [facility] an [facility] BI-RADS 2-benign Millie HALL IMG BI PROCEDURES Final Resul t * Pap smear (08/14/2017) 08/14/2017 Narrative HISTORICAL TESTING LAB RESULTING AGENCY - 08/18/2017 2:37 PM EDT [id number] THINPREP PAP, IMAGED: NEGATIVE FOR SQUAMOUS INTRAEPITHELIAL [...] to Health Maintenance Insurance [address] [place] [address] [employer] Care Teams Patch Machine Operator Relationship Specialty Start Date End Date Pallavi Antunez MD [address] [place] [id number] PCP - General Internal Medicine 06/11/21
[2024-07-14 14:52] LABS: Chloride 98 mmol/L (96-108); Magnesium 2.1 mg/dL (1.6-2.6)
[2024-07-14 15:10] LABS: Ferritin 67 ng/mL (10-250); TSH reflex Free T4 0.97 uIU/mL (0.32-4.0)
[2024-07-14 15:22] LABS: Vitamin B12 317 pg/mL (200-900)
== END 2024-07-14 13:24 | disposition home or self-care (01) ==
LOC: HO.WFDLDS 13:23
PROVIDERS: Visit Provider Nurse Practitioner Family
DX: R07.9 Chest pain, unspecified (principal)
CPT/HCPCS: 36415; 82435; 82607; 82728; 82746; 83735; 84100; 84443; 85027

== ENCOUNTER 2024-09-13 11:24 | Outpatient (AMB) | payer OTHER, SELFPAY ==
--- NOTE | 2024-09-13 11:26 | A.OFFPC_ITS ---
Vital Signs 09/13/24 11:31 Height 5 ft 6 in Weight 218 lb 6 oz BMI 35.2 BP 118/68 Blood Pressure Location Lt brachial Position Sitting Respiration 12 Pulse 68 Pulse Source Pulse Oximeter Temp 97.2 F Temp Source Oral Pulse Oximetry (%) 99 Oxygen Delivery Method Room Air Intake Visit Reasons: ED [facility] and review labs Intake Note: ED follow up for vertigo from [facility] Rot[facility] Filter Operator Required: No Allergies amoxicillin (From Augmentin) Allergy (Severe, Verified 09/13/24 12:05) Rash clavulanic acid (From Augmentin) Allergy (Severe, Verified 09/13/24 12:05) Rash Medication List - Last Reconciled 09/13/24 by Ingrid Castillo, VETERINARY MEDICAL OFFICER-BC citalopram 20 mg PO DAILY insulin glargine (Basaglar KwikPen U-100 Insulin) 10 units subcut QPM insulin lispro (Humalog KwikPen (U-100) Insulin) 1 sliding scale dose subcut USEASDIRECTD metoprolol succinate ER 25 mg (1/2 x 50 mg) PO DAILY omeprazole 20 mg PO DAILY pen needle, diabetic (BD Maya 2nd Gen Pen Needle) As directed rosuvastatin 40 mg PO DAILY semaglutide (Ozempic) 0.25 mg subcut QWEEK triamterene-hydrochlorothiazid 37.5-25 mg 1 cap PO DAILY Tobacco use date assessed: 09/13/24 Dental Screening Dental Screen Date: 09/13/24 Did you have a dental visit in the last 12 months?: Yes Did you have a dental problem in the last 6 months where you did not have access to dental care?: No Was dental information given to patient?: Patient has dentist HPI HPI Comments History of Present Illness Details 58 y/o F with DM2, Meniere's Dz, Hyperli pidemia, menopause, obesity, lichen sclerosis, HTN, MDD Surgery: back surgery 2020 Dr Crawford, 2003 R meniscal tear ([facility]). Health Maintenance: Colon 2019, repeat 2024, + polyps, repeat 5 years Overdue ([facility]). DEXA 08/2023 WNL Mammo 10/2023 PAP UTD DME in last year, reports negative for retinopathy Summer 2023 Vaccines: Declined flu shot; Thinks UTD on tdap. Specialists: [facility] ENT RN TELEPHONIC at [facility] - treated for ingrown toenails; next appt July 2024 Results: DEXA 08/2023 WNL Mammo 10/2023Feb 2024 CMP, Urine microalb WNL Oct 2024 Lipids WNL Stress test 2020 - was not able to review, ? done at [facility] Sleep study pending ordered by ENT August 2024 09/03/24 cc: vertigo d/t menieres dz ep isode x 4 I do not have these records despite several requests for records States given meclizine and zofran and she left AMA d/t long wait time She shows me her labs on MyChart which showed: - Hyponatremia identified with sodium le adrian at 131. Potassium tested low at 3.2. Cr 1.11, egfr 58, Cl low 92, normal CBC, normal EKG Offers new complaints of speech issues: - Notable ongoing difficulty with speech characterized by speech jumbles and repetition, this has been ongoing for months but seems to be worsening Review of Systems - General: Reports feeling better post-h ospital visit - Neurological: Reports vertigo, dizzine ss, dysarthria - Renal/Metabolic: Reports past blood gl ucose at 145 - ENT: Reports episodes of vertigo assoc iated with Meniere's Disease - Musculoskeletal: Reports inability to keep balance during severe episodes Physical Exam General: Well developed, well nourished, in no acute distress. Appears stated age. Head: Normocephalic, atraumatic. Eyes: Pupils are equal, round and reactive to light and accommodation. Conjunctivae are clear. EOMI, No nystagmus Lungs: Clear to auscultation bilaterally. No rales, rhonchi or wheeze noted. Go od air flow in all aquino. Heart: Regular rate and rhythm. No murmurs, click, rubs or gallops are noted. Neuro: JONES x 4, normal strength, tone and reflexes, normal speech today. Nonfocal. Psych: Mood and affect appropriate. Results - Labs: Sodium at 131 (low); Potassium a t 3.2 (low); Glucose at 145; Creatinine at 1.11; GFR at 58 - Diagnostics: EKG: Normal sinus rhythm - Labs: Sodium 131, Potassium 3.2, Glucose 145, Creatinine 1.11, GFR 58 - EKG: Normal sinus rhythm Discussion Notes I explained to the patient the likelihood of her dizziness being linked to the electrolyte disturbances, particularly sodium and potassium levels, and how they might influence her Meniere's Disease symptoms. We discussed that a CT scan of the head/neck is recommended to further investigate the episodes of dysarthria, dizziness, and to rule out any potential cerebral accidents. The potential urgency of any findings was stressed. Lab tests were requested to provide insight. Further management of abnormal labs will depend on today's blood work results. I instructed the patient on using the patient portal for urgent communications to expedite responses. I also discussed medication adjustments, including an increase in Meclizine to 37.5mg and strategies for managing any persistent electrolyte abnormalities, emphasizing lifestyle adjustments. Prescription of Zofran was planned to assist with nausea symptoms. Assessment and Plan 1. Hyponatremia - Repeat labs . 2. Low potassium levels - Consider electrolyte adjustments; revi ew impacts of current medications. 3. Meniere's Disease - Increase Meclizine to 37.5mg; prescrib e Zofran for nausea. 4. Dysarthria - CT head/neck for evaluation; educate o n signs of stroke. 5. Hypertension - Continue existing regime, monitor BP. 6 DM2 - Monitor glucose; discuss diet, lifesty le impacts. Patient Instructions - Use patient portal for urgent communic ation. - Go to lab today for blood tests. - Return for imaging as scheduled. - Follow dosing changes for Meclizine an d Zofran. - Monitor blood pressure regularly at [facility]. - Watch blood glucose levels and maintai n dietary care. - Observe symptoms that could suggest a stroke and seek care immediately if they occur. Consent Patient was informed and verbally consented to the use of an ambient scribe for clinic note documentation during this visit. Total time spent caring for the patient today was 45 minutes. This includes time spent before the visit reviewing the chart, time spent during the visit, and time spent after the visit on documentation, reviewing laboratory results, diagnostic imaging, medications, performing a medically necessary evaluation, counseling on diagnoses, care coordination, ordering appropriate tests, ordering appropriate medications, review of tests performed by other providers, reporting test results with the patient, communication with other healthcare providers. [facility] Medical History (Updated 09/13/24 @ 12:12 by Ingrid Castillo, [facility]) Diabetes Menieres disease Surgical History (Updated 07/14/24 @ 12:29 by Ingrid Castillo [facility]) History of colonoscopy (~2024) Previous back surgery Family History Other FH: mental illness Substance abuse Social History Household Members: Other Household Members Other:: 2 cats Housing: Apartment 75 years or older and lives alone: No Alcohol intake: current Alcohol intake frequency: holidays/special occasions only Patient Tobacco Use Status: Former Tobacco user Years Smoked: 10 e-Cigarette/Vaping Use: Never Used service: No Current occupational status: employed Current occupation: [employer] Current occupational exposures/hazards: No Cognitive needs: No Hearing needs: Yes (hearing aid in right ear) Vision needs: No Questionnaire PHQ-9 Over the last 2 weeks, how often have you been bothered by any of the following problems? 1. Little interest or pleasure in doing things: not at all 2. Feeling down, depressed, or hopeless: not at all 3. Trouble falling or staying asleep, or sleeping too much: not at all 4. Feeling tired or having little energy: not at all 5. Poor appetite or overeating: not at all 6. Feeling bad about yourself - or that you are a failure or have let yourself or your family down: not at all 7. Trouble concentrating on things, such as reading the newspaper or watching television: not at all 8. Moving or speaking so slowly that other people could have noticed. Or the opposite - being so fidgety or restless that you have been moving around a lot more than usual: not at all 9. Thoughts that you would be better off or of hurting yourself in some way: not at all Total score: 0 Depression Screening Interpretation: Negative Depression Screening Done: Yes 53755 - PHQ-9 Billing: Yes Source: Developed by Drs. Jacob Hess, Gayla Oscar, Antonio Martinez and colleagues, with an educational avani from [employer]. Thrive Questionnaire Date Thrive assessed: 09/13/24 I am a: Patient What is your living situation today?: I have a steady place to live Within the past 12 months, did the food you bought not last and you didn't have the money to get more?: Never true Within the past 12 months, did you worry whether your food would run out before you got money to buy more?: Never true Do you have trouble paying for medicines?: No Do you have trouble getting transportation to medical appointments?: No Do you have trouble paying your heating and electricity bill?: No Do you have trouble taking care of your child, family member or friend?: No Do you have trouble with day-to-day activities such as bathing, preparing meals, shopping, managing finances, etc.?: No Are you currently unemployed and looking for a job?: No Are you interested in more education?: No Please select the resources that you would like help with: None Currently or been in a relationship where the following occur: No concerns reported THRIVE Score: 0 ED-7 AMB Questionnaire ED-7 Date ED - 7 assessed: 09/13/24 Feeling nervous, anxious, or on edge: 0 = Not at all Not being able to stop or control worryin = Not at all Worrying too much about different things: 0 = Not at all Trouble relaxin = Not at all Being so restless that it is hard to sit still: 0 = Not at all Becoming easily annoyed or irritable: 0 = Not at all Feeling afraid as if something awful might happen: 0 = Not at all Total ED-7 score (0-4 normal; 5-9 mild; 10-14 moderate; 15-21 severe): 0 Source: Developed by Drs. Jacob Hess, Gayla Oscar, Antonio Martinez and colleagues, with an educational avani from [employer]. ED-7 Assessment Billing ED-7 Assessment Tool: ED-7 Assessment 36101 Physical exam (Primary Care) Vital Signs: Last Vital Signs Temp 97.2 F 09/13/24 11:31 Pulse 68 09/13/24 11:31 Resp 12 09/13/24 11:31 BP 118/68 09/13/24 11:31 Pulse Ox 99 09/13/24 11:31 Oxygen Delivery Method Room Air 09/13/24 11:31 BMI result Body Mass Index 35.2 Tobacco/Smoking Status: Tobacco use Status Tobacco use date assessed 09/13/24 09/13/24 11:29 Patient Tobacco Use Status Former Tobacco user 09/13/24 11:29 e-Cigarette/Vaping Use Never Used 09/13/24 11:29 PHQ-9: PHQ-9 Score PHQ-9: Total score 0 09/13/24 11:29 Depression Screening Interpretation: Negative Thrive Assessment: Date of Thrive Assessment Date Thrive assessed 09/13/24 09/13/24 11:29 Currently or been in a relationship where the following occur: No concerns reported Coding Level of Care Code Est Pt Level 5 (62877) Complex EM visit Add On G2211 Diagnoses Hospital discharge follow-up Z09 Meniere's disease of right ear H81.01 Hypokalemia E87.6 Hyponatremia E87.1 Insulin-treated type 2 diabetes mellitus E11.9; Z79.4 Hyperlipidemia due to type 2 diabetes mellitus E11.69; E78.5 Hypertension complicating diabetes E11.59; I15.2 Dysarthria R47.1 Additional Codes ED-7 Assessment Billing - ED-7 Assessment Tool: ED-7 Assessment [id number] ([id number]) PHQ-9 - 66045 - PHQ-9 Billing: Yes ([id number]) Assessment & Plan Assessment & Plan (1) Hospital discharge follow-up: Code(s): Z09 - Encounter for follow-up examination after completed treatment for conditions other than malignant neoplasm (2) Meniere's disease of right ear: Comment: managed by ENT, Dr Montenegro hearing aide R ear Code(s): H81.01 - Meniere's disease, right ear Category: Medical (3) Hypokalemia: Code(s): E87.6 - Hypokalemia Category: Medical (4) Hyponatremia: Code(s): E87.1 - Hypo-osmolality and hyponatremia Category: Medical (5) Insulin-treated type 2 diabetes mellitus: Comment: active w/ Endo and Optho On ACEI & Statin Cont diabetic medications and diet Code(s): E11.9 - Type 2 diabetes mellitus without complications; Z79.4 - halfway (current) use of insulin Category: Medical (6) Hyperlipidemia due to type 2 diabetes mellitus: Comment: goal LDL < 70 On rosuvastatin 40mg Code(s): E11.69 - Type 2 diabetes mellitus with other specified complication; E78.5 - Hyperlipidemia, unspecified Category: Medical (7) Hypertension complicating diabetes: Comment: goal < 130/80 Controlled on current meds, cont. Code(s): E11.59 - Type 2 diabetes mellitus with other circulatory complications; I15.2 - Hypertension secondary to endocrine disorders Category: Medical (8) Dysarthria: Code(s): R47.1 - Dysarthria and anarthria Category: Medical Plan . Orders: Orders Comprehensive Met. Panel Today E87.1 - Hypo-osmolality and hyponatremia, E87.6 - Hypokalemia, H81.01 - Meniere's disease, right ear, Z09 - Encounter for follow-up examination after completed treatment for conditions other than malignant neoplasm CT angio head neck STROKE Today E11.59 - Type 2 diabetes mellitus with other circulatory complications, E11.69 - Type 2 diabetes mellitus with other spec ified complication, E11.9 - Type 2 diabetes mellitus without complications, E78.5 - Hyperlipidemia, unspecified, I15.2 - Hypertension secondary to endocrine disorders, R47.1 - Dysarthria and anarthria, Z79.4 - halfway (current) use of insulin Medications: New ondansetron HCl 4 mg PO Q8H PRN 15 tabs 0RF nausea and vomiting 3 days
[2024-09-13 11:31] VITALS: BP 118/68; PULSE 68; RESP 12; TEMP 36.2; O2SAT 99; BMI 35.2
--- OUTSIDE RECORDS SUMMARY | 2024-09-13 12:19 | XMS_ITS | Clinical Summary ---
Author Organization [address] [facility] Address [address] [place] [address] Phone Care Team Providers Care Melter Supervisor [employer] Name Role Phone Pallavi Antunez MD Primary [...] unspecified whether stage 3a or 3b CKD ([facility] V24, [facility] V28) Inject 50 Units into [...] unspecified whether stage 3a or 3b CKD ([facility] V24, [facility] V28) INJECT BEFORE BREAKFAST, LUNCH AND DINNER: <100: 0 UNITS, 100-150: 8 UNITS, 151-200: 10 UNITS, 201-250: 12 UNITS, 251-300: 14 UNITS, 301-350: 16 UNITS, 351-400: 18 UNITS. >400: CALL ME. Max dose 54 units/day 45 mL 1 5 Active semaglutide (OZEMPIC) 0.25 mg or 0.5 mg (2 mg/3 mL) injection penIndications:Ty pe 2 diabetes mellitus with stage 3 chronic kidney disease, with long-term current use of insulin, unspecified whether stage 3a or 3b CKD ([facility] V24, [facility] V28) Use 0.25mg once weekly 3 mL 3 5 Active Active Problems Problem Noted Date Diagnosed Date Depression 01/29/2024 Palpitations 05/14/2021 Chest pain 05/14/2021 Severe obesity (BMI 35.0-39. 9) with comorbidity ([facility] V24, [facility] V28) 12/28/2020 Sensorineural hearing loss (SNHL) of right ear 1 Microalbuminuria 12/28/2020 CKD (chronic kidney disease) stage 3, GFR 30-59 ml/min ([facility] V24, [facility] V28) 02/14/2020 Abnormal mammogram 02/14/2020 Overview (01/29/2024): right breast/already scheduled for 6 months follow up in 04/2020 Meniere disease 02/05/2019 Overview (01/29/2024): Dr Monten[place] Calcific tendinitis of left shoulder 02/05/2019 Iron deficiency anemia 01/26/2019 Hypertension 01/26/2019 Hyperlipidemia 01/26/2019 DM (diabetes mellitus), type 2 with renal complications ([facility] V24, [facility] V28) 01/26/2019 Lichen sclerosus 01/29/2016 Encounters Date Type Department Care Team Description 09/03/2024 4:02 PM EDT - 09/04/2024 12:45 AM EDT Emergency [facility] [address] [place] [address] Discharge Disposition: Home or Self Care 06/28/[address] [address] Adeline Churchill PA Medication Problem from Last 3 Months Immunizations Name Administration Dates Next Due Pneumococcal polysaccharide 23 valent (Pneumovax 23) 2yo and older 02/14/2020 Tdap Tetanus diptheria acell ular pertussis (Boostrix; Adacel) 7yo and older 09/09/2016,10/26/2008 Surgical History Surgery Date Site/Laterality Comments OTHER SURGICAL HISTORY 2003 Right PROCEDURE: MD ARTHRS AIDED ANT CRUCIATE LIGM RPR/AGMNTJ/RCNSTJ; COMMENT: meniscus repair Medical History Medical History Date Comments Arthritis DX:Arthritis Depression DX:Depression Hypertension 01/26/2019 DX:Hypertension Hyperlipidemia 01/26/2019 DX:Hyperlipidemi a Iron deficiency anemia 01/26/2019 DX:Iron d eficiency anemia Lichen sclerosus 01/29/2016 DX:Lichen scler osus Type 2 diabetes mellitus wit hout complication ([facility] V24, [facility] V28) 01/26/2019 DX:Type 2 diab etes mellitus without complication (HCC) DM (diabetes mellitus), type 2 with renal complications ([facility] V24, [facility] V28) 01/26/2019 DX:DM (diabetes mellitus), t ype 2 with renal complications (HCC) CKD (chronic kidney disease) stage 3, GFR 30-59 ml/min ([facility] V24, [facility] V28) 02/14/2020 DX:CKD (chronic kidney disea se) stage 3, GFR 30-59 ml/min ([facility]) Microalbuminuria 12/28/2020 DX:Microalbumin uria Sensorineural hearing loss ( SNHL) of right ear 12/28/2020 DX:Sensorineural hearing los s (SNHL) of right ear Severe obesity (BMI 35.0-39. 9) with comorbidity ([facility] V24, [facility] V28) 12/28/2020 DX:Severe obesi ty (BMI 35.0- 39.9) with comorbidity ([facility]) Family History Medical History Relation Name Comments [...] Sign Reading Time Taken Comments Blood Pressure 112/67 09/03/2024 8:21 PM EDT Pulse 69 09/03/2024 8:21 PM EDT Temperature 37 C (98.6 F) 09/03/2024 8:21 PM EDT Respiratory Rate 17 09/03/2024 8:21 PM EDT Oxygen Saturation 97% 09/03/2024 8:21 PM EDT Inhaled Oxygen Concentration - - Weight 99.8 kg (220 lb) 09/03/2024 4:11 PM EDT Height 167.6 cm (5' 6 ) 09/03/2024 4:11 PM EDT Body Mass Index 35.51 09/03/2024 4:11 PM EDT Plan of Treatment Upcoming Encounters Date Type Department Care Team (Late st Contact Info) Description 01/07/2025 9:40 AM EDT Office Visit Endocrinology - [place] [address] [place] [address] Adeline Churchill PA [address] [place] [address] Health Maintenance Due Date Last Done Comments [...] exists Diabetes: Annual GFR (Glomerular Filtration Rate) 09/03/2025 09/03/2024, 03/02/2024, 07/09/2023, Additional history exists Hypertension/CHF/CAD Annual BMP Blood Test 09/03/2025 09/03/2024, 03/02/2024, 07/09/2023, Additional history exists DTaP,Tdap,and Td Vaccines (4 - Td or [...] Procedure Name Priority Date/Time Associated Diagnosis Comments ECG ANNOTATED 09/06/2024 ECG 12-LEAD STAT 09/03/2024 5:20 PM EDT CBC WITH AUTO DIFFERENTIAL STAT 09/03/2024 5:14 PM EDT COMPREHENSIVE METABOLIC PANEL STAT 09/03/2024 5:14 PM EDT CBC AND DIFFERENTIAL STAT 09/03/2024 5:14 PM EDT HEMOGLOBIN A1C Routine 06/01/2024 11:31 AM EDT Type 2 diabetes mellitus with stage 3 chronic kidney disease, with long-term current use of insulin, unspecified whether stage 3a or 3b CKD ([facility] V24, [facility] V28) HM URINE ALBUMIN CREATININE RATIO Routine 11/05/2023 LIPID PANEL Routine 11/05/2023 DX MAMMO INCL CAD BI Routine 05/31/2019 11:07 AM EDT Changes in skin texture PAP SMEAR Routine 08/14/2017 from Last 3 Months or Most Recently Relevant to Health Maintenance Results * ECG-Annotated (09/06/2024) us Provider Onbase ECG ORDERABLES Final Result * ECG 12 lead (09/03/2024 5:20 PM EDT) Ventricular Rate ECG 66 BPM GEMUSE Atrial Rate 66 BPM GEMUSE P-R Interval 188 ms GEMUSE QRS Duration 92 ms GEMUSE Q-T Interval 446 ms GEMUSE QTc 467 ms GEMUSE P Wave Mon[place] 36 degrees GEMUSE R [place] 9 degrees GEMUSE T [place] 22 degrees GEMUSE ECG Interpretation Normal sinus rhythm Normal ECG No previous ECGs available Confirmed by POPEYE MARIO ([id number]) on 09/03/2024 8:33:06 PM GEMUSE 09/03/2024 5:20 PM EDT 09/03/2024 8:33 PM EDT us Melchor Solomon MD ECG ORDERABLES Final Resul t GEMUSE * CBC auto differential (09/03/2024 5:14 PM EDT) [facility] Signature WBC 9.6 4.8 - 10.8 K/mcL LAB HEMETOLOGY METHOD 09/03/2024 6:19 PM EDT [facility] RBC 4.20 3.80 - 4.80 M/mcL LAB HEMETOLOGY METHOD 09/03/2024 6:19 PM EDT [facility] Hemoglobin 12.4 11.5 - 16.0 g/dL LAB HEMETOLOGY METHOD 09/03/2024 6:19 PM EDT [facility] Hematocrit 38.6 35.0 - 47.0 % LAB HEMETOLOGY METHOD 09/03/2024 6:19 PM EDT [facility] MCV 91.5 79.0 - 98.0 FL LAB HEMETOLOGY METHOD 09/03/2024 6:19 PM EDT [facility] MCH 29.4 27.0 - 32.0 pcg LAB HEMETOLOGY METHOD 09/03/2024 6:19 PM EDT [facility] MCHC 32.1 32.0 - 37.0 g/dL LAB HEMETOLOGY METHOD 09/03/2024 6:19 PM EDT [facility] RDW 13.4 11.0 - 15.0 % LAB HEMETOLOGY METHOD 09/03/2024 6:19 PM EDT [facility] Platelets 258 130 - 400 K/mcL LAB HEMETOLOGY METHOD 09/03/2024 6:19 PM EDT [facility] MPV 9.9 7.0 - 11.0 FL LAB HEMETOLOGY METHOD 09/03/2024 6:19 PM EDT [facility] NRBC 0.0 <1.0 % LAB HEMETOLOGY METHOD 09/03/2024 6:19 PM EDT [facility] NRBC Absolute 0.00 <0.10 K/mcL LAB HEMETOLOGY METHOD 09/03/2024 6:[address] [facility] Neutrophils Relative 58.8 % LAB HEMETOLOGY METHOD 09/03/2024 6:[address] [facility] Lymphocytes Relative 32.2 % LAB HEMETOLOGY METHOD 09/03/2024 6:[address] [facility] Monocytes Relative 5.7 % LAB HEMETOLOGY METHOD 09/03/2024 6:[address] [facility] Eosinophils Relative 2.3 % LAB HEMETOLOGY METHOD 09/03/2024 6:[address] [facility] Basophils Relative 0.7 % LAB HEMETOLOGY METHOD 09/03/2024 6:[address] [facility] Immature Granulocytes Relative 0.3 % LAB HEMETOLOGY METHOD 09/03/2024 6:[address] [facility] Neutrophils Absolute 5.66 1.50 - 7.00 K/mcL LAB HEMETOLOGY METHOD 09/03/2024 6:[address] [facility] Lymphocytes Absolute 3.10 1.00 - 5.00 K/mcL LAB HEMETOLOGY METHOD 09/03/2024 6:[address] [facility] Monocytes Absolute 0.55 0.20 - 1.00 K/mcL LAB HEMETOLOGY METHOD 09/03/2024 6:[address] [facility] Eosinophils Absolute 0.22 0.00 - 0.50 K/mcL LAB HEMETOLOGY METHOD 09/03/2024 6:[address] [facility] Basophils Absolute 0.07 0.00 - 0.20 K/mcL LAB HEMETOLOGY METHOD 09/03/2024 6:[address] [facility] Immature Granulocytes Absolute 0.03 0.00 - 0.03 K/mcL LAB HEMETOLOGY METHOD 09/03/2024 6:19 PM EDT [facility] Blood Venous blood specimen / Unknown Venipuncture / Unknown 09/03/2024 5:14 PM EDT 09/03/2024 6:08 PM EDT us Grace DUENAS LAB BLOOD ORDERABLES Final Re sult [facility] [address] [place] [address], * (ABNORMAL) Comprehensive metabolic panel (09/03/2024 5:14 PM EDT) Sodium 131(L) 133 - 145 mmol/L LAB CHEMISTRY METHOD 09/03/2024 6:[address] [facility] Potassium 3.2(L) 3.5 - 5.5 mmol/L LAB CHEMISTRY METHOD 09/03/2024 6:[address] [facility] Chloride 93(L) 96 - 110 mmol/L LAB CHEMISTRY METHOD 09/03/2024 6:[address] [facility] CO2 31 21 - 32 mmol/L LAB CHEMISTRY METHOD 09/03/2024 6:[address] [facility] Anion Gap 7 3 - 11 LAB CHEMISTRY METHOD 09/03/2024 6:[address] [facility] Glucose 145(H) 70 - 100 mg/dL LAB CHEMISTRY METHOD 09/03/2024 6:[address] [facility] BUN 21 5 - 25 mg/dL LAB CHEMISTRY METHOD 09/03/2024 6:[address] [facility] Creatinine 1.11(H) 0.50 - 1.10 mg/dL LAB CHEMISTRY METHOD 09/03/2024 6:[address] [facility] eGFR 58(L) >=60 mL/min/1. 73m2 LAB CHEMISTRY METHOD 09/03/2024 6:[address] [facility] Comment:Calculation based on the Chronic Kidney Disease Epidemiology Collaboration (CKD-EPI) equation refit without adjustment for race. BUN/Creatinine Ratio 18.9 LAB CHEMISTRY METHOD 09/03/2024 6:51 PM EDT [facility] Calcium 10.2 8.5 - 10.5 mg/dL LAB CHEMISTRY METHOD [facility]24 [facility] ([facility]OT[facility] 22 10 - 42 unit/L LAB CHEMISTRY METHOD 09/03/2024 6:51 PM T [facility] ALT (SGPT) 28 10 - 60 unit/L LAB CHEMISTRY METHOD 09/03/2024 6:[address] [facility] Alkaline Phosphatase 69 42 - 121 unit/L LAB CHEMISTRY METHOD 09/03/2024 6:[address] [facility] Total Protein 7.6 6.0 - 8.0 g/dL LAB CHEMISTRY METHOD 09/03/2024 6:[address] [facility] Albumin 3.7 3.2 - 5.0 g/dL LAB CHEMISTRY METHOD 09/03/2024 6:[address] [facility] Total Bilirubin 0.7 0.0 - 1.4 mg/dL LAB CHEMISTRY METHOD 09/03/2024 6:51 PM T [facility] Blood Venous blood specimen / Unknown Venipuncture / Unknown 09/03/2024 5:14 PM EDT 09/03/2024 6:08 PM EDT us Grace DUENAS LAB BLOOD ORDERABLES Final Re sult [facility] [address] [place] [address], * (ABNORMAL) Hemoglobin A1c (06/01/2024 11:31 AM EDT) Hemoglobin A1C 9.4(H) <6.5 % LAB CHEMISTRY METHOD 06/01/2024 8:56 PM EDT [facility] Mean Bld Glu Estim. 223 mg/dL LAB CHEMISTRY METHOD 06/01/2024 8:56 PM EDT [facility] Blood Venous blood specimen / Unknown Venipuncture / Unknown 06/01/2024 11:31 AM EDT 06/01/2024 11:31 AM EDT Adeline DUENAS LAB BLOOD ORDERABLES Final Resul t [facility] [address] [place] [address], [place] [phone] * HM Urine Albumin Creatinine Ratio (11/05/2023) Urine Albumin [...] itchiness and possible discharge from the area. No definite nipple discharge per patient. No palpable lump. Mother with history of Paget's. Findings: Digital unilateral left full-field diagnostic mammography is performed and interpreted with the aid of computer-aided detection. Comparison is made with 09/02/2018. Breast parenchyma is composed of scattered fibroglandular densities. Skin thickening around the nipple and areolar region.. No new suspicious mass, architectural distortion, or suspicious calcifications. Ultrasound shows soft tissue thickening around the nipple which has heterogeneous appearance and minimal vascularity. No retroareolar solid or cystic lesion. No ductal dilatation. Impression: Nonspecific skin thickening around the nipple and areolar region. No suspicious breast mass. Skin thickening can be seen with inflammatory processes as well as malignancy. Recommend surgical consultation with consideration for punch biopsy. Patient plans to schedule an appointment with her mother's physician at [facility]. BI-RADS 2-benign Procedure Note Daina Arreaga [...] [facility]. [facility] 2-benign us Millie HALL IMG BI PROCEDURES Final Resul t * Pap smear (08/14/2017) 08/14/2017 Narrative HISTORICAL TESTING LAB RESULTING AGENCY - 08/18/2017 2:37 PM EDT [id number] THINPREP PAP, IMAGED: NEGATIVE FOR SQUAMOUS INTRAEPITHELIAL LESION AND MALIGNANCY . RESULT OF APTIMA HIGH RISK HPV ASSAY: NEGATIVE (SEROTYPES 16,18,31,33,35,39,45,51,52,56,58,59,66,68) ANDRES VERONICA(ASCP) (CASE ELECTRONICALLY SIGNED 08 18 2017) ADEQUACY: SATISFACTORY. ENDOCERVICAL/TRANSFORMATION ZONE COMPONENT PRESENT. SOURCE: THINPREP PAP HPV ANY DX: REFLEX 16 AND 18, CERVICAL, IMAGED: CLINICAL INFORMATION: HPV ANY DIAGNOSIS. Z12.4, Z01.419 us America Ring MD LAB CYTOLOGY ORDERABLES Final R esult HISTORICAL TESTING LAB RESULTING AGENCY from Last 3 Months or Most Recently Relevant to Health Maintenance Insurance [employer] Care Teams Melter Super[employer] Relationship Specialty Start Date End Date Pallavi Antunez MD [address] [place] [id number] PCP - General Internal Medicine 06/11/21
== END 2024-09-13 12:20 | disposition home or self-care (01) ==
LOC: HO.HMCFM 11:25
PROVIDERS: PCP Nurse Practitioner Family; Visit Provider Nurse Practitioner Family
DX: E11.69 Type 2 diabetes mellitus with other specified complication (principal); Z79.4 Long term (current) use of insulin; E11.59 Type 2 diabetes mellitus with other circulatory complications; E87.6 Hypokalemia; H81.01 Meniere's disease, right ear; E87.1 Hypo-osmolality and hyponatremia; E78.5 Hyperlipidemia, unspecified; I15.2 Hypertension secondary to endocrine disorders; R47.1 Dysarthria and anarthria

== ENCOUNTER → 2024-09-13 11:24 | Outpatient (BNVA) | payer OTHER, SELFPAY | PROVIDERS: PCP Nurse Practitioner Family; Visit Provider Nurse Practitioner Family | DX: E87.1 Hypo-osmolality and hyponatremia (principal); H81.09 Meniere's disease, unspecified ear; R47.1 Dysarthria and anarthria; H81.01 Meniere's disease, right ear; E87.6 Hypokalemia; E11.69 Type 2 diabetes mellitus with other specified complication; E11.59 Type 2 diabetes mellitus with other circulatory complications; E78.5 Hyperlipidemia, unspecified; I15.2 Hypertension secondary to endocrine disorders; Z79.4 Long term (current) use of insulin | CPT/HCPCS: 96127 ==

== ENCOUNTER 2024-09-13 12:34 | Outpatient (REF) | payer OTHER, SELFPAY ==
--- OUTSIDE RECORDS SUMMARY | 2024-09-13 13:00 | XMS_ITS | Clinical Summary ---
Author Organization [address] [facility] Address [address] [place] [address] Phone Care Team Providers Care Reconciler Name Role Phone Pallavi Antunez MD Primary [...] unspecified whether stage 3a or 3b CKD ([facility] V24, [facility] V28) Inject 50 Units into [...] unspecified whether stage 3a or 3b CKD ([facility] V24, [facility] V28) INJECT BEFORE BREAKFAST, LUNCH [...] unspecified whether stage 3a or 3b CKD ([facility] V24, [facility] V28) Use 0.25mg once weekly 3 mL 3 5 Active Active Problems Problem Noted Date Diagnosed Date Depression 01/29/2024 Palpitations 05/14/2021 Chest pain 05/14/2021 Severe obesity (BMI 35.0-39. 9) with comorbidity ([facility] V24, [facility] V28) 12/28/2020 Sensorineural hearing loss (SNHL) of right ear 1 Microalbuminuria 12/28/2020 CKD (chronic kidney disease) stage 3, GFR 30-59 ml/min ([facility] V24, [facility] V28) 02/14/2020 Abnormal mammogram 02/14/2020 Overview (01/29/2024): right breast/already scheduled for 6 months follow up in 04/2020 Meniere disease 02/05/2019 Overview (01/29/2024): Dr Montenegro Calcific tendinitis of left shoulder 02/05/2019 Iron deficiency anemia 01/26/2019 Hypertension 01/26/2019 Hyperlipidemia 01/26/2019 DM (diabetes mellitus), type 2 with renal complications ([facility] V24, [facility] V28) 01/26/2019 Lichen sclerosus 01/29/2016 Encounters Date Type Department Care Team Description 09/03/2024 4:02 PM EDT - 09/04/2024 12:45 AM EDT Emergency [facility] Emergency [address] [place] [address] Discharge Disposition: Home or Self Care 06/28/[address] [address] Adeline Churchill PA Medication Problem [...] Type 2 diabetes mellitus wit hout complication ([facility] V24, [facility] V28) 01/26/2019 DX:Type 2 diab etes mellitus without complication (HCC) DM (diabetes mellitus), type 2 with renal complications ([facility] V24, [facility] V28) 01/26/2019 DX:DM (diabetes mellitus), t ype 2 with renal complications (HCC) CKD (chronic kidney disease) stage 3, GFR 30-59 ml/min ([facility] V24, [facility] V28) 02/14/2020 DX:CKD (chronic kidney disea se) stage 3, GFR 30-59 ml/min ([facility]) Microalbuminuria 12/28/2020 DX:Microalbumin uria Sensorineural hearing loss ( SNHL) of right ear 12/28/2020 DX:Sensorineural hearing los s (SNHL) of right ear Severe obesity (BMI 35.0-39. 9) with comorbidity ([facility] V24, [facility] V28) 12/28/2020 DX:Severe obesi ty (BMI 35.0- 39.9) with comorbidity ([facility]) Family History Medical History Relation [...] 9:40 AM EDT Office Visit Endocrinology - [place] [address] [place] [address] Adeline Churchill PA [address] [place] [address] Health Maintenance Due Date Last Done Comments [...] unspecified whether stage 3a or 3b CKD ([facility] V24, [facility] V28) HM URINE ALBUMIN CREATININE [...] GEMUSE QTc 467 ms GEMUSE P Wave [place] 36 degrees GEMUSE R [place] 9 degrees GEMUSE T [place] 22 degrees GEMUSE ECG Interpretation Normal sinus rhythm Normal ECG No previous ECGs available Confirmed by POPEYE MARIO ([id number]) on 09/03/2024 8:33:06 PM GEMUSE 09/03/2024 5:20 PM EDT 09/03/2024 8:33 PM EDT us Melchor Solomon MD ECG ORDERABLES Final Resul t GEMUSE * CBC auto differential (09/03/2024 5:14 PM EDT) [facility] Signature WBC 9.6 4.8 - 10.8 K/mcL LAB HEMETOLOGY METHOD 09/03/2024 6:19 PM EDT [facility] RBC 4.20 3.80 - 4.80 M/mcL LAB HEMETOLOGY METHOD 09/03/2024 6:19 PM EDT [facility] Hemoglobin 12.4 11.5 - 16.0 g/dL LAB HEMETOLOGY METHOD 09/03/2024 6:19 PM EDT [facility] Hematocrit 38.6 35.0 - 47.0 % LAB HEMETOLOGY METHOD 09/03/2024 6:19 PM EDT [facility] MCV 91.5 79.0 - 98.0 FL LAB HEMETOLOGY METHOD 09/03/2024 6:19 PM EDT [facility] MCH 29.4 27.0 - 32.0 pcg LAB HEMETOLOGY METHOD 09/03/2024 6:19 PM EDT [facility] MCHC 32.1 32.0 - 37.0 g/dL LAB HEMETOLOGY METHOD 09/03/2024 6:19 PM EDT [facility] RDW 13.4 11.0 - 15.0 % LAB HEMETOLOGY METHOD 09/03/2024 6:19 PM EDT [facility] Platelets 258 130 - 400 K/mcL LAB HEMETOLOGY METHOD 09/03/2024 6:19 PM EDT [facility] MPV 9.9 7.0 - 11.0 FL LAB HEMETOLOGY METHOD 09/03/2024 6:19 PM EDT [facility] NRBC 0.0 <1.0 % LAB HEMETOLOGY METHOD 09/03/2024 6:19 PM EDT [facility] NRBC Absolute 0.00 <0.10 K/mcL LAB HEMETOLOGY METHOD 09/03/2024 6:19 PM [facility] Neutrophils Relative 58.8 % LAB HEMETOLOGY METHOD 09/03/2024 6:19 PM [facility] Lymphocytes Relative 32.2 % LAB HEMETOLOGY METHOD 09/03/2024 6:19 PM [facility] Monocytes Relative 5.7 % LAB HEMETOLOGY METHOD 09/03/2024 6:19 PM [facility] Eosinophils Relative 2.3 % LAB HEMETOLOGY METHOD 09/03/2024 6:19 PM [facility] Basophils Relative 0.7 % LAB HEMETOLOGY METHOD 09/03/2024 6:19 PM [facility] Immature Granulocytes Relative 0.3 % LAB HEMETOLOGY METHOD 09/03/2024 6:19 PM [facility] Neutrophils Absolute 5.66 1.50 - 7.00 K/mcL LAB HEMETOLOGY METHOD 09/03/2024 6:19 PM [facility] Lymphocytes Absolute 3.10 1.00 - 5.00 K/mcL LAB HEMETOLOGY METHOD 09/03/2024 6:19 PM [facility] Monocytes Absolute 0.55 0.20 - 1.00 K/mcL LAB HEMETOLOGY METHOD 09/03/2024 6:19 PM [facility] Eosinophils Absolute 0.22 0.00 - 0.50 K/mcL LAB HEMETOLOGY METHOD 09/03/2024 6:19 PM [facility] Basophils Absolute 0.07 0.00 - 0.20 K/mcL LAB HEMETOLOGY METHOD 09/03/2024 6:19 PM [facility] Immature Granulocytes Absolute 0.03 0.00 - 0.03 K/mcL LAB HEMETOLOGY METHOD 09/03/2024 6:19 PM EDT [facility] Blood Venous blood specimen / Unknown Venipuncture / Unknown 09/03/2024 5:14 PM EDT 09/03/2024 6:08 PM EDT us Grace DUENAS LAB BLOOD ORDERABLES Final Re sult [facility] [address] [place] [address], * (ABNORMAL) Comprehensive metabolic panel (09/03/2024 5:14 PM EDT) Sodium 131(L) 133 - 145 mmol/L LAB CHEMISTRY METHOD 09/03/2024 6:51 PM [facility] Potassium 3.2(L) 3.5 - 5.5 mmol/L LAB CHEMISTRY METHOD 09/03/2024 6:51 PM [facility] Chloride 93(L) 96 - 110 mmol/L LAB CHEMISTRY METHOD 09/03/2024 6:51 PM [facility] CO2 31 21 - 32 mmol/L LAB CHEMISTRY METHOD 09/03/2024 6:51 PM [facility] Anion Gap 7 3 - 11 LAB CHEMISTRY METHOD 09/03/2024 6:51 PM [facility] Glucose 145(H) 70 - 100 mg/dL LAB CHEMISTRY METHOD 09/03/2024 6:51 PM [facility] BUN 21 5 - 25 mg/dL LAB CHEMISTRY METHOD 09/03/2024 6:51 PM [facility] Creatinine 1.11(H) 0.50 - 1.10 mg/dL LAB CHEMISTRY METHOD 09/03/2024 6:51 PM [facility] eGFR 58(L) >=60 mL/min/1. 73m2 LAB CHEMISTRY METHOD 09/03/2024 6:51 PM [facility] Comment:Calculation based on the Chronic Kidney Disease Epidemiology Collaboration (CKD-EPI) equation refit without adjustment for race. BUN/Creatinine Ratio 18.9 LAB CHEMISTRY METHOD 09/03/2024 6:51 PM EDT [facility] Calcium 10.2 8.5 - 10.5 mg/dL LAB CHEMISTRY METHOD [facility]24 [facility] ([facility]OT[facility] 22 10 - 42 unit/L LAB CHEMISTRY METHOD 09/03/2024 6:51 PM T [facility] ALT (SGPT) 28 10 - 60 unit/L LAB CHEMISTRY METHOD 09/03/2024 6:51 PM [facility] Alkaline Phosphatase 69 42 - 121 unit/L LAB CHEMISTRY METHOD 09/03/2024 6:51 PM [facility] Total Protein 7.6 6.0 - 8.0 g/dL LAB CHEMISTRY METHOD 09/03/2024 6:51 PM [facility] Albumin 3.7 3.2 - 5.0 g/dL LAB CHEMISTRY METHOD 09/03/2024 6:51 PM [facility] Total Bilirubin 0.7 0.0 - 1.4 mg/dL LAB CHEMISTRY METHOD 09/03/2024 6:51 PM T [facility] Blood Venous blood specimen / Unknown Venipuncture / Unknown 09/03/2024 5:14 PM EDT 09/03/2024 6:08 PM EDT us Grace DUEANS LAB BLOOD ORDERABLES Final Re sult [facility] [address] [place] [address], * (ABNORMAL) Hemoglobin A1c (06/01/2024 11:31 AM EDT) Hemoglobin A1C 9.4(H) <6.5 % LAB CHEMISTRY METHOD 06/01/2024 8:56 PM EDT [facility] Mean Bld Glu Estim. 223 mg/dL LAB CHEMISTRY METHOD 06/01/2024 8:56 PM EDT [facility] Blood Venous blood specimen / Unknown Venipuncture / Unknown 06/01/2024 11:31 AM EDT 06/01/2024 11:31 AM EDT Adeline DUENAS LAB BLOOD ORDERABLES Final Resul t [facility] [address] [place] [address], [place] [phone] * HM Urine Albumin Creatinine Ratio (11/05/2023) [...] an appointment with her mother's physician at [facility]. BI-RADS 2-benign Procedure Note Daina Arreaga [...] [facility] an [facility]-RADS 2-benign us Millie HALL IMG BI PROCEDURES Final Resul t * Pap smear (08/14/2017) 08/14/2017 Narrative HISTORICAL TESTING LAB RESULTING AGENCY - 08/18/2017 2:37 PM EDT [id number] THINPREP PAP, IMAGED: NEGATIVE FOR SQUAMOUS INTRAEPITHELIAL [...] to Health Maintenance Insurance [employer] Care Teams Reconciler Relationship Specialty Start Date End Date Pallavi Antunez MD [address] [place] [phone] PCP - General Internal Medicine 06/11/21
--- OUTSIDE RECORDS SUMMARY | 2024-09-13 13:00 | XMS_ITS | Data Portability ---
Author Organization [place] [facility], Allergy Address [address] [place] [address] Care Team Providers Care Lower School Music Teacher Name Role Phone EMILY SERRANO Primary Care Provider Assessment Encounter Date Assessment Date Assessment LastModified by Organization Details LastModified Time 06/15/2024 06/15/2024 Patient's sympto ms of right-sided M ni re's disease have changed in a way that [...] to read at home, which gives a [id number]-lf-ntto discussion on what causes migraine and how [...] Will order sleep study for further evaluation. [email or web address] Not available 06/15/2024 14:36:46 Plan of Treatment Reminders Order Date Submit Date Provider Last Modified By Organization Details Last Modified Time Details Appointments None recorded. Lab None recorded. Referral None recorded. Procedures polysomnogr aphy, diagnostic (PROC) 2024 025 [email or web address] [facility], [address] [place] [address], [address], 14:19:45 Surgeries None recorded. Imaging None recorded. Medication Orders timolol 0.5 % eye drops 2024 025 [facility][id number], [address] [place], [address], 14:33:29 Patient TargetsNo targets recorded. Patient InstructionsNo instructions recorded. Reason for Referral None Reported. Results Created Date Observation Date Name Description Value Unit Range Abnormal Flag Note LastModifiedBy Organization Detail LastModifiedTime 06/30/1906/30/2024 ELECT ROLYT E PANEL sodium 135 mmol/ L 134-14 4 normal Not Available [facility] ([facility]) [address] [place], [address], 06/30/2024 02:17:00 06/30/1906/30/2024 ELECT ROLYT E PANEL potassium 3.7 mmol/ L 3.5-5. 2 normal Not Available [facility] ([facility]) [address] [place], [address], 06/30/2024 02:17:00 06/30/1906/30/2024 ELECT ROLYT E PANEL chloride 93 mmol/ L 96-106 below low normal Not Available [facility] ([facility]) [address] [place], [address], 06/30/2024 02:17:00 06/30/1906/30/2024 ELECT ROLYT E PANEL carbon dioxide, total 21 mmol/ L 20-29 normal Not Available [facility] ([facility]) [address], [place], [address], 06/30/2024 02:17:00 06/16/19 25 audio gram No observ ation record ed. BARCODE Not Available 2024 14:42:30 Result Notes None recorded. Problems Name Problem SNOMED Code Status Onset Date Resolution Date Notes Provider Name and Address Organization Details Recorded Time Dizziness and giddiness 628046422 Active 2017 Dizziness and giddiness ; Note: Date Diagnosed : 8 2:49 PM (R42) Not Available [facility] 4 02:56:08 Sensorine ural hearing loss 74420131 Active 2020 Sensorine ural hearing loss, unilatera l, right ear, with unrestric mirela hearing on the contralat eral side; Note: Date Diagnosed : 11/22/2020 12:19 PM (H90.41) Not Available [facility] 4 02:56:08 Tinnitus of right ear 91084981356 08 Active 2020 Tinnitus, right ear; Note: Date Diagnosed : 11/22/2020 12:19 PM (H93.11) Not Available [facility] 4 02:56:10 M ni re's disease 85212646 Active 2017 Meniere's disease, right ear; Note: Date Diagnosed : 8 3:12 PM (H81.01) Not Available [facility] 4 02:56:07 Impacted cerumen in right ear 01127552574 96337 Active 2022 Impacted cerumen, right ear; Note: Date Diagnosed : 3 9:47 AM (H61.21) Not Available [facility] 4 02:56:10 Nasal congestio n 97566816 Active 2018 Nasal congestio n; Note: Date Diagnosed : 05/05/2018 3:35 PM (R09.81) Not Available [facility] 4 02:56:08 Sensorine ural hearing loss in right ear 22788636691 100 Active 2024 DAGMAR BARRERA, JAIME [address],[place] [address], [place], [address] , [place] - [facility] 13:44:15 Migraine variants 647751057 Active 2024 CHRISTINE ANN MD [address],[place] [address], [place], [address] , [place] - [facility] 14:31:11 Vertigo of central origin 21203218 Active 2024 CHRISTINE ANN MD [address],[place] [address], [place], [address] , [place] - [facility] 14:31:11 Snoring 27849312 Active 2024 CHRISTINE ANN MD [address],[place] [address], [place], [address] , [place] - [facility] 14:31:58 Obesity 356881713 Active 2024 CHRISTINE ANN MD [address],[place] [address], [place], [address] , [place] - [facility] 14:33:39 Problem Notes None recorded. Procedures Surgical History Date Name Laterality Status Provider Name and Address Organization Details Recorded Time 06/15/2024 Comp Audio with Tymps - 08716 & 73983 completed DAGMAR BARRERA, JAIME [address],[place] [address], [place], [address], [facility] - [facility] 06/15/2024 13:43:37 Imaging Results None recorded. Procedure Notes None recorded. Medical Equipment None Reported. Allergies No known drug allergies Medications Name Sig Start Date Stop Date Status Note LastModified by Organization Details LastModified Time silver sulfadiaz ine 1 % topical cream APPLY TOPICALL Y 1 TIME EACH DAY. active Not Available Not Available No t Available fluconazo le 150 mg tablet 02/27 completed Medicati on ID: [id number] B rand Name: fluconaz ole Send Method: [...] by mouth 11/22 completed Medicati on ID: [id number] P izaiahribe d By Name: Latoya Corbett nd Name: clonazep am Send Method: E-Prescr ibed Sub s Allowed: subs OK Speci al Instruct ion: as needed for vertigo episodes Medicat ionGener icName: clonazep am Not Available Not Available Not Available Cleve Low Dose Aspirin 81 mg tablet,de layed release 10/17 completed Medicati on ID: [id number] B rand Name: Cleve Low Dose Aspirin [...] mg tablet 10/17 completed Medicati on ID: [id number] D uration Value: 90 Brand Name: glimepir [...] mg tablet 11/22 completed Medicati on ID: [id number] D uration Value: 90 Brand Name: metformi n Send Method: E-Prescr ibed Sub s Allowed: subs OK Medic ationGen ericName : metformi n Not Available Not Available Not Available triamtere ne 37.5 mg-hydroc hlorothia zide 25 mg tablet Take 1 tablet by mouth once a day 07/25 completed Medicati on ID: [id number] D uration Value: 90 Prescri bed By [...] 24 hr 10/17 completed Medicati on ID: [id number] D uration Value: 30 Brand Name: metoprol [...] unit) capsule 10/17 completed Medicati on ID: [id number] B rand Name: Vitamin D3 Send Method: E-Prescr ibed Sub s Allowed: subs OK Medic ationGen ericName : Vitamin D3 Not Available Not Available Not Available rosuvasta tin 40 mg tablet TAKE 1 TABLET BY MOUTH EVERY DAY active Not Available Not Available No t Available Trulicity 1.5 mg/0.5 mL subcutane ous pen injector 10/17 completed Medicati on ID: [id number] D uration Value: 84 Brand Name: Trulicit y Send Method: E-Prescr ibed Sub s Allowed: subs OK Medic ationGen ericName : Trulicit y Not Available Not Available Not Available Basaglshira ValentinoikPen U-100 Insulin 100 unit/mL (3 mL) subcutane ous INJECT 46 TO 56 UNITS SUBCUTAN EOUSLY AT BEDTIME active Not Available Not Available No t Available BD Maya 2nd Gen Pen Needle 32 gauge x 5/32 USE TO INJECT INSULIN UP TO 3 TIMES A DAY 06/15 completed Not Available Not Available Not Available Rybelsus 14 mg tablet 06/15 completed Medicati on ID: [id number] B rand Name: Rymiugel angelsulilly Send Method: E-Prescr ibed Sub s Allowed: subs OK Medic ationGen ericName : Rybelsus Not Available Not Available Not Available Rybelsus 7 mg tablet TAKE 1 TABLET BY MOUTH EVERY DAY 06/15 completed Not Available Not Available Not Available FreeStyle Qamar 2 Sensor kit 02/27 completed Medicati on ID: [id number] B rand Name: FreeStyl e Qamar 2 [...] History Nothing Reported. Medical History Condition Response Depression Y Diabetes Y High Cholesterol Y Hypertension Y Gynecological HistoryNo gynecological history recorded. Obstetrics History GPAL:G 0 P 0 0 0 0 Past Encounters Encounter ID Performer Location Encounter Start Date Encounter Closed Date Diagnosis/Indication Diagnosis SNOMED-CT Code Diagnosis ICD10 Code Diagnosis Note [id number] CHRISTINE ANN MD [facility] [address] [place] [address] 06/15/2024 13:19:42 06/15/2024 14:37:22 M ni re's disease 91458293 H81.01 Sensorineu ral hearing loss in right ear 1423934621 9100 H90.41 Audiologic al evaluation results: 06/15/2024Ri ght ear:Modera te flat sensorineu ral hearing loss with fair word recognitio n.Left ear:Normal hearing with excellent word recognitio n. Tympanomet ry:Right Ear:Type ALeft Ear:Type As Migraine variants 670472 005 G43.809 Vertigo of central origin 17492599 H81.4 Snoring 53048382 R06.83 Obesity 048619642 E66.9 Health Concerns Section Related Observation LastModified by Organization Detai ls LastModified Time None Recorded Concern Status LastModified by Organization Details LastModified Time None Recorded Advance Directives Directive None Recorded Payers Insurance Date Sequence Insurance Name Policy Number Policy Orosco Covered Member ID Orosco Member ID Guarantor Name 06/15/2024 1 MARQUIS [id number] [facility] [id number] 1 [id number] [facility] Notes Date Note Type Note Provider Name and Address Organization Details Recorded Time 06/15/2024 text/html 58-year-old fema le with history of right-sided M ni re's disease, resulting in moderately severe sensorineural hearing [...] history of ocular migraine. CHRISTINE ANN MD [address] [place] [address], [place], [address], [facility] - [facility] 06/15/2024 14:37:33 OBGyn Episode No OBEpisode recorded.
[2024-09-13 15:02] LABS: Alanine Aminotransferase 27 U/L (0-31); Albumin Level 4.4 g/dL (3.5-5.0); Alkaline Phosphatase 71 U/L (39-117); Anion Gap 13 (12-20); Aspartate Amino Transferase 33 U/L (5-31); Bilirubin Total 0.6 mg/dL (0.0-1.0); Blood Urea Nitrogen 16 mg/dL (9-16); Calcium 10.2 mg/dL (8.4-10.2); Carbon Dioxide 31 mmol/L (22-29); Chloride 96 mmol/L (96-108); Estimated Glomerular Filt Rate 56; Glucose Random 172 mg/dL (60-115); Potassium 3.2 mmol/L (3.3-5.1); Sodium 137 mmol/L (135-145); Total Protein 7.9 g/dL (6.5-8.0)
== END 2024-09-13 12:35 | disposition home or self-care (01) ==
LOC: HO.WFDLDS 12:34
PROVIDERS: Visit Provider Nurse Practitioner Family
DX: Z09 Encounter for follow-up examination after completed treatment for conditions other than malignant neoplasm (principal); E87.1 Hypo-osmolality and hyponatremia; E87.6 Hypokalemia; H81.01 Meniere's disease, right ear
CPT/HCPCS: 36415; 80053

== ENCOUNTER 2024-10-26 08:20 | Outpatient (REF) | payer OTHER, SELFPAY ==
--- NOTE | ~2024-10-26 | CT_ITS ---
EXAMINATION: CT HEAD NECK ANGIOGRAPHY WITH IV CONTRAST HISTORY: R47.1 - Dysarthria and anarthria COMPARISON: There are no prior studies available for comparison. TECHNIQUE: Helical axial images were obtained from the skull base to the vertex without contrast per standard departmental protocol. Subsequently, helical axial images were obtained from the aortic arch to the vertex after intravenous injection of contrast per standard Department protocol. MIP/3D reconstructions were obtained and reviewed. One or more of the following techniques was used for dose reduction: Automated exposure control, adjustment of the mA and/or kV according to patient size, use of iterative reconstruction technique. DLP: 1503 mGy-cm FINDINGS: CT BRAIN: BRAIN: There is mild prominence of the ventricular system and cortical sulci, consistent with atrophy. Scattered periventricular and subcortical white matter hypodensities are consistent with small vessel ischemic disease. There is no mass effect or midline shift. No intra or extra-axial fluid collections are identified. SINUSES/MASTOID AIR CELLS: The paranasal sinuses, mastoid air cells and middle ear cavities are clear and well pneumatized. ORBITS: The visualized orbits are unremarkable. BONES/SOFT TISSUES: The extracranial soft tissues are unremarkable. No suspicious lytic or sclerotic lesions. CTA NECK: AORTIC ARCH: The visualized portions of the arch as well as innominate, right subclavian, and left subclavian arteries show no hemodynamically significant stenosis. Right common carotid artery: There is no large vessel occlusion or hemodynamically significant stenosis. Right internal carotid artery: There is a small amount of plaque at the carotid bulb. There is no large vessel occlusion or hemodynamically significant stenosis. Left common carotid artery: There is no large vessel occlusion or hemodynamically significant stenosis. Left internal carotid artery: There is a small amount of plaque at the carotid bulb causing less than 50% stenosis of the internal carotid artery. There is no large vessel occlusion or hemodynamically significant stenosis. (Extracranial internal carotid artery stenosis estimates are based on use of distal ICA as the denominator.) Right vertebral artery: There is no large vessel occlusion or hemodynamically significant stenosis. Left vertebral artery: There is no large vessel occlusion or hemodynamically significant stenosis. CTA HEAD: Right intracranial ICA: There is no large vessel occlusion, hemodynamically significant stenosis, or aneurysm. Right DURAN: There is no large vessel occlusion, hemodynamically significant stenosis, or aneurysm. Right MCA: There is no large vessel occlusion, hemodynamically significant stenosis, or aneurysm. Left intracranial ICA: There is no large vessel occlusion, hemodynamically significant stenosis, or aneurysm. Left DURAN: There is no large vessel occlusion, hemodynamically significant stenosis, or aneurysm. Left MCA: There is no large vessel occlusion, hemodynamically significant stenosis, or aneurysm. Basilar artery: There is no large vessel occlusion, hemodynamically significant stenosis, or aneurysm. Superior cerebellar arteries: There is no large vessel occlusion, hemodynamically significant stenosis, or aneurysm. Right BAKER PIE: There is no large vessel occlusion, hemodynamically significant stenosis, or aneurysm. Left BAKER PIE: There is no large vessel occlusion, hemodynamically significant stenosis, or aneurysm. VEINS: Venous enhancement is within normal limits for this technique. SOFT TISSUES: The bilateral parotid and submandibular glands are unremarkable. There is lobulation of the right thyroid lobe. No laryngeal abnormality is identified. There is no cervical lymphadenopathy. CT/CT angio head neck IMPRESSION: 1. No large vessel occlusion, hemodynamically significant stenosis, or aneurysm in the head and neck. 2. No acute intracranial findings. 3. Findings were sent to Ingrid Castillo NP by secure text message on 11/04/2024 at 9:31 AM. Electronically signed by: Jacob Quinteros MD 10/26/2024 09:32 AM EDT
--- OUTSIDE RECORDS SUMMARY | 2024-10-26 08:30 | XMS_ITS ---
Author Name [facility] Organization Unknown Care Team Organization Name Specialty Phone Email Start Date End Da te [facility] Pallavi Antunez MD Primary Care 01/14/2023 0 11/03/2023 [facility] Anna Marie Fleming Primary Care 01/22/2022 11/03/2023
--- OUTSIDE RECORDS SUMMARY | 2024-10-26 08:30 | XMS_ITS | Encounter Summary ---
Author Organization [facility] Address [address] [place] [address] Care Team Providers Care Dispatcher Clerk Name Role Phone Pallavi Antunez MD Primary Care Provider Reason for Visit * Reason Onset Date Comments left great toe 10/11/2024 Encounter Details Date Type Department Care Team (Late st Contact Info) Description 10/11/2024 Telephone Orthopedic Surgery - [place] [address] [address] Blade Mcfarlane, DPM [address] [address] left great toe Social History Tobacco Use Types Packs/Day Years [...] as of this encounter Progress Notes * Radha Denis - 10/11/2024 2:34 PM EDT Patient is calling stating that her Left great toe appears to have an Open Area on it after bangingit the other day. It was bleeding, there is no Discharge, some Redness, Does not feel it is infected @ is time., but she is Diabetic and is concerned. She is away, but will be back on Friday. Is inquiring on how to keep it from getting infected, has kept it covered, aired it out while she slept,states if get worse will go to ED. Last seen in May., NS her July appt. Made a new appt for December for diabetic foot care. Please advise. Please call her @ [phone] Thanks. documented in this encounter Plan of Treatment Upcoming Encounters Date Type Department Care Team (Late st Contact Info) Description 12/14/2024 2:00 PM EDT Office Visit Orthopedic Surgery - [place] [id number] [address] Blade Mcfarlane, DPM [address] [address] 01/07/2025 9:40 AM EDT Office Visit Endocrinology - [address] [address] Adeline Churchill PA [address] [place] [address] documented as of this encounter Visit Diagnoses Not on filedocumented in this encounter Care Teams Dispatcher Clerk Relationship Specialty Start Date End Date Pallavi Antunez MD [address] [place] [address] PCP - General Internal Medicine 06/11/21 documented as of this encounter
[2024-10-26] MEDS: iohexoL 350 MG/ML 100 ML INFUS..BTL IV (09:13)
[2024-10-26 10:58] LABS: Anion Gap 13 (12-20); Blood Urea Nitrogen 15 mg/dL (9-16); Calcium 9.4 mg/dL (8.4-10.2); Carbon Dioxide 32 mmol/L (22-29); Chloride 96 mmol/L (96-108); Estimated Glomerular Filt Rate 47; Potassium 3.4 mmol/L (3.3-5.1); Sodium 138 mmol/L (135-145)
[2024-10-29 08:17] LABS: Creatinine POC 1.0 mg/dL (0.5-1.4); GFR POC 58
== END 2024-10-26 08:21 | disposition home or self-care (01) ==
LOC: HO.CT 08:20
PROVIDERS: PCP Nurse Practitioner Family; Visit Provider Nurse Practitioner Family
DX: E87.6 Hypokalemia (principal); R47.1 Dysarthria and anarthria; I15.2 Hypertension secondary to endocrine disorders; E11.59 Type 2 diabetes mellitus with other circulatory complications
CPT/HCPCS: 36415; 70496; 70498; 80048; 82565; Q9967

== ENCOUNTER → 2024-10-26 08:22 | Outpatient (BNV) | payer OTHER, SELFPAY | PROVIDERS: PCP Nurse Practitioner Family; Visit Provider Radiology Diagnostic Radiology | DX: R47.1 Dysarthria and anarthria (principal) | CPT/HCPCS: 70496 ==

== ENCOUNTER 2024-11-01 15:13 | Outpatient (AMB) | payer OTHER, SELFPAY ==
--- NOTE | 2024-11-01 15:10 | MHC.PC.OV ---
Intake Visit Reasons: review CT results and labs Intake Note: Telehealth to review CT scan and labs Club Car Attendant Required: No Allergies amoxicillin (From Augmentin) Allergy (Severe, Verified 11/01/24 16:33) Rash clavulanic acid (From Augmentin) Allergy (Severe, Verified 11/01/24 16:33) Rash Medication List - Last Reconciled 11/01/24 by Ingrid Castillo, [facility]- citalopram 20 mg PO DAILY insulin glargine (Basaglar KwikPen U-100 Insulin) 10 units subcut QPM insulin lispro (Humalog KwikPen (U-100) Insulin) 1 sliding scale dose subcut USEASDIRECTD metoprolol succinate ER 25 mg (1/2 x 50 mg) PO DAILY omeprazole 20 mg PO DAILY ondansetron HCl 4 mg PO Q8H PRN 3 days pen needle, diabetic (BD Maya 2nd Gen Pen Needle) As directed potassium chloride ER (Klor-Con) 10 mEq PO DAILY rosuvastatin 40 mg PO DAILY semaglutide (Ozempic) 0.25 mg subcut QWEEK triamterene-hydrochlorothiazid 37.5-25 mg 1 cap PO DAILY Tobacco use date assessed: 11/01/24 Dental Screening Dental Screen Date: 11/01/24 Did you have a dental visit in the last 12 months?: Yes Did you have a dental problem in the last 6 months where you did not have access to dental care?: No Was dental information given to patient?: Patient has dentist HPI HPI Comments History of Present Illness Details 59 y/o F with DM2, Meniere's Dz, Hyperlipidemia, menopause, obesity, lichen sclerosis, HTN, MDD, white matter disease of brain Surgery: back surgery 2020 Dr Crawford, 2003 R meniscal tear ([facility]). Health Maintenance: Colon 2019, repeat 2024, + polyps, repeat 5 years Overdue ([facility]). DEXA 08/2023 WNL Mammo 10/2023 PAP UTD DME in last year, reports negative for retinopathy Summer 2023 Vaccines: Declined flu shot; Thinks UTD on tdap. Specialists: [facility] at [facility] - treated for ingrown toenails; next appt July 2024 Results: DEXA 08/2023 WNL Mammo 10/2023Feb 2024 CMP, Urine microalb WNL Oct 2024 Lipids WNL Stress test 2020 - was not able to review, ? done at [facility] Sleep study pending ordered by ENT >> this was scheduled in August 2024 but she cancelled and has not rescheduled. History of Present Illness - The patient is a 59 year old female presenting to review CT scan and laboratory results. Done to eval dizziness and word jumbling. - Stroke ruled out - Cerebral atrophy shown as mild ventricular prominence - Scattered periventricular white matter abnormalities - Normal blood pressure history according to the patient, in disagreement with historical reports of uncontrolled hypertension. - Bilateral carotid artery plaque identified as less than 50% and deemed non-significant. - Thyroid CT finding showed a right lobulation. - Diabetes management includes multi-type insulin therapy, controlled diet, and reported ongoing struggle with glycemic control. Active w/ endo, next appt 12/2024 Review of Systems - Neurological: Reports dizziness and speech disturbance. - Cardiovascular: Denies any recent chest pain or significant changes in blood pressure. - Endocrine: Reports difficulty managing diabetes despite dietary efforts. - Musculoskeletal: Denies any specific joint pain but notes generalized discomfort. - Psychiatric: Reports anxiety, particularly about possible vascular dementia progression. Results see below Assessment and Plan 1. Mild ventricular system prominence - No intervention required. 2. Scattered periventricular white matter hypodensities - Blood pressure control stressed along w/ cholesterol and DM 3. Carotid artery plaque - Continue rosuvastatin therapy. 4. Lobulation in the right thyroid - Monitor for symptoms, no further action. 5. Diabetes Mellitus type 2 - Maintain current regime, monitor blood glucose. 6. M?ni?re's disease - Maintain current management approach. 7. Vascular Dementia risk - Focus on cardiovascular risk reduction. - offered and declined neuro appt; advised to get Sleep study done. Patient was given time to ask questions. All questions were answered to their satisfaction. Telehealth Attestation The visit was conducted via telehealth, and all recorded details were reviewed for accuracy. The patient has been explained that this is an interactive (audio/video) telehealth encounter and what that consists of. The patient understands and wishes to proceed. Sojern platform was used. Total time spent caring for the patient today was 31 minutes. This includes time spent before the visit reviewing the chart, time spent during the visit, and time spent after the visit on documentation, reviewing laboratory results, diagnostic imaging, medications, performing a medically necessary evaluation, counseling on diagnoses, care coordination, ordering appropriate tests, ordering appropriate medications, review of tests performed by other providers, reporting test results with the patient, communication with other healthcare providers. [facility] Medical History (Updated 11/01/24 @ 16:51 by Ingrid Castillo [facility]) Diabetes Menieres disease Surgical History (Updated 07/14/24 @ 12:29 by Ingrid Castillo [facility]) History of colonoscopy (~2024) Previous back surgery Family History Other FH: mental illness Substance abuse Social History Household Members: Other Household Members Other:: 2 cats Housing: Apartment 75 years or older and lives alone: No Alcohol intake: current Alcohol intake frequency: holidays/special occasions only Patient Tobacco Use Status: Former Tobacco user Years Smoked: 10 e-Cigarette/Vaping Use: Never Used service: No Current occupational status: employed Current occupation: [employer] Current occupational exposures/hazards: No Cognitive needs: No Hearing needs: Yes (hearing aid in right ear) Vision needs: No Questionnaire Thrive Questionnaire Date Thrive assessed: 09/13/24 ED-7 AMB Questionnaire ED-7 Date ED - 7 assessed: 09/13/24 Source: Developed by Drs. Jacob Hess, Gayla Oscar, Antonio Martinez and colleagues, with an educational avani from [facility] [employer] [facility]. Physical exam (Primary Care) Tobacco/Smoking Status: Tobacco use Status Tobacco use date assessed 11/01/24 11/01/24 15:12 Patient Tobacco Use Status Former Tobacco user 11/01/24 15:11 e-Cigarette/Vaping Use Never Used 11/01/24 15:11 Thrive Assessment: Date of Thrive Assessment Date Thrive assessed 09/13/24 11/01/24 15:11 Telehealth Telehealth [facility]health [facility] Location of provider rendering services: practice address Location of patient: address on file Patient Identification confirmed using: Name, : Yes Telehealth method: voice only Patient verbally consented to treatment: Yes Patient verbally consented to billing insurance company: Yes Patient informed of any privacy concerns related to visit: Yes Minutes spent on Phone/Video with Pt.: 17 Results Reviewed Results Reviewed: 10/26/2024 Laboratory Result Units Range Interpretation Provider Comments Sodium Level 138 mmol/L (135-145) Potassium Level 3.4 mmol/L (3.3-5.1) Chloride Level 96 mmol/L (96-108) Carbon Dioxide Level 32 mmol/L (22-29) High Anion Gap 13 (12-20) Blood Urea Nitrogen 15 mg/dL (9-16) Creatinine 1.18 mg/dL (0.5-1.4) Estimated Creatinine Clearance Calc Not Reportable Estimat Glomerular Filtration Rate 47 Random Glucose 203 mg/dL (60-115) High Calcium Level 9.4 mg/dL (8.4-10.2) Delta Imaging: CTA Head/Neck: EXAMINATION: CT HEAD NECK ANGIOGRAPHY WITH IV CONTRAST HISTORY: R47.1 - Dysarthria and anarthria COMPARISON: There are no prior studies available for comparison. TECHNIQUE: Helical axial images were obtained from the skull base to the vertex without contrast per standard departmental protocol. Subsequently, helical axial images were obtained from the aortic arch to the vertex after intravenous injection of contrast per standard Department protocol. MIP/3D reconstructions were obtained and reviewed. One or more of the following techniques was used for dose reduction: Automated exposure control, adjustment of the mA and/or kV according to patient size, use of iterative reconstruction technique. DLP: 1503 mGy-cm FINDINGS: CT BRAIN: BRAIN: There is mild prominence of the ventricular system and cortical sulci, consistent with atrophy. Scattered periventricular and subcortical white matter hypodensities are consistent with small vessel ischemic disease. There is no mass effect or midline shift. No intra or extra-axial fluid collections are identified. SINUSES/MASTOID AIR CELLS: The paranasal sinuses, mastoid air cells and middle ear cavities are clear and well pneumatized. ORBITS: The visualized orbits are unremarkable. BONES/SOFT TISSUES: The extracranial soft tissues are unremarkable. No suspicious lytic or sclerotic lesions. CTA NECK: AORTIC ARCH: The visualized portions of the arch as well as innominate, right subclavian, and left subclavian arteries show no hemodynamically significant stenosis. Right common carotid artery: There is no large vessel occlusion or hemodynamically significant stenosis. Right internal carotid artery: There is a small amount of plaque at the carotid bulb. There is no large vessel occlusion or hemodynamically significant stenosis. Left common carotid artery: There is no large vessel occlusion or hemodynamically significant stenosis. Left internal carotid artery: There is a small amount of plaque at the carotid bulb causing less than 50% stenosis of the internal carotid artery. There is no large vessel occlusion or hemodynamically significant stenosis. (Extracranial internal carotid artery stenosis estimates are based on use of distal ICA as the denominator.) Right vertebral artery: There is no large vessel occlusion or hemodynamically significant stenosis. Left vertebral artery: There is no large vessel occlusion or hemodynamically significant stenosis. CTA HEAD: Right intracranial ICA: There is no large vessel occlusion, hemodynamically significant stenosis, or aneurysm. Right DURAN: There is no large vessel occlusion, hemodynamically significant stenosis, or aneurysm. Right MCA: There is no large vessel occlusion, hemodynamically significant stenosis, or aneurysm. Left intracranial ICA: There is no large vessel occlusion, hemodynamically significant stenosis, or aneurysm. Left DURAN: There is no large vessel occlusion, hemodynamically significant stenosis, or aneurysm. Left MCA: There is no large vessel occlusion, hemodynamically significant stenosis, or aneurysm. Basilar artery: There is no large vessel occlusion, hemodynamically significant stenosis, or aneurysm. Superior cerebellar arteries: There is no large vessel occlusion, hemodynamically significant stenosis, or aneurysm. Right DEPARTMENT DIRECTOR: There is no large vessel occlusion, hemodynamically significant stenosis, or aneurysm. Left DEPARTMENT DIRECTOR: There is no large vessel occlusion, hemodynamically significant stenosis, or aneurysm. VEINS: Venous enhancement is within normal limits for this technique. SOFT TISSUES: The bilateral parotid and submandibular glands are unremarkable. There is lobulation of the right thyroid lobe. No laryngeal abnormality is identified. There is no cervical lymphadenopathy. CT/CT angio head neck IMPRESSION: 1. No large vessel occlusion, hemodynamically significant stenosis, or aneurysm in the head and neck. 2. No acute intracranial findings. 3. Findings were sent to Ingrid Castillo NP by secure text message on 11/04/2024 at 9:31 AM. Electronically signed by: Jacob Quinteros MD 10/26/2024 09:32 AM EDT Coding Level of Care Code Tele Est Pt Level 3 (82134) Complex EM visit Add On G2211 Diagnoses Hypertension complicating diabetes E11.59; I15.2 White matter disease R90.82 Hyperlipidemia due to type 2 diabetes mellitus E11.69; E78.5 Dysarthria R47.1 Assessment & Plan Assessment & Plan (1) Hypertension complicating diabetes: Comment: goal < 130/80 Controlled on current meds, cont. Code(s): E11.59 - Type 2 diabetes mellitus with other circulatory complications; I15.2 - Hypertension secondary to endocrine disorders Category: Medical (2) White matter disease: Onset Date: 10/2024 Comment: CTA of head and neck Code(s): R90.82 - White matter disease, unspecified Category: Medical (3) Hyperlipidemia due to type 2 diabetes mellitus: Comment: goal LDL < 70 On rosuvastatin 40mg Code(s): E11.69 - Type 2 diabetes mellitus with other specified complication; E78.5 - Hyperlipidemia, unspecified Category: Medical (4) Dysarthria: Code(s): R47.1 - Dysarthria and anarthria Category: Medical Plan .
--- OUTSIDE RECORDS SUMMARY | 2024-11-01 15:47 | XMS_ITS | Clinical Summary ---
Author Organization [address] [facility] Address [address] [place] [address] Phone Care Team Providers Care Central Aisle Cashier Name Role Phone Pallavi Antunez MD Primary [...] unspecified whether stage 3a or 3b CKD ([facility] V24, [facility] V28) Inject 50 Units into the [...] unspecified whether stage 3a or 3b CKD ([facility] V24, [facility] V28) INJECT BEFORE BREAKFAST, LUNCH AND [...] unspecified whether stage 3a or 3b CKD ([facility] V24, [facility] V28) Use 0.25mg once weekly 3 mL 3 5 Active Active Problems Problem Noted Date Diagnosed Date Depression 01/29/2024 Palpitations 05/14/2021 Chest pain 05/14/2021 Severe obesity (BMI 35.0-39. 9) with comorbidity ([facility] V24, [facility] V28) 12/28/2020 Sensorineural hearing loss (SNHL) of right ear 1 Microalbuminuria 12/28/2020 CKD (chronic kidney disease) stage 3, GFR 30-59 ml/min ([facility] V24, [facility] V28) 02/14/2020 Abnormal mammogram 02/14/2020 Overview (01/29/2024): right breast/already scheduled for 6 months follow up in 04/2020 Meniere disease 02/05/2019 Overview (01/29/2024): Dr Montenegro Calcific tendinitis of left shoulder 02/05/2019 Iron deficiency anemia 01/26/2019 Hypertension 01/26/2019 Hyperlipidemia 01/26/2019 DM (diabetes mellitus), type 2 with renal complications ([facility] V24, [facility] V28) 01/26/2019 Lichen sclerosus 01/29/2016 Encounters Date Type Department Care Team Description 10/11/2024 Telephone Orthopedic Surgery - [place] [address] [place] [phone] Blade Mcfarlane, MADI left great toe 09/03/2024 4:02 PM EDT - 09/04/2024 12:45 AM EDT Emergency [facility] Emergency [address] [place] [address] Discharge Disposition: Home or Self Care from Last 3 Months Immunizations Name Administration Dates Next Due Pneumococcal polysaccharide 23 valent (Pneumovax 23) 2yo and older 02/14/2020 Tdap Tetanus diptheria acell ular pertussis (Boostrix; Adacel) 7yo and older 09/09/2016,10/26/2008 Surgical History Surgery Date Site/Laterality Comments OTHER SURGICAL HISTORY 2002 Right PROCEDURE: NV ARTHRS AIDED ANT CRUCIATE LIGM RPR/AGMNTJ/RCNSTJ; COMMENT: meniscus repair Medical History Medical History Date Comments Arthritis DX:Arthritis Depression DX:Depression Hypertension 01/26/2019 DX:Hypertension Hyperlipidemia 01/26/2019 DX:Hyperlipidemi a Iron deficiency anemia 01/26/2019 DX:Iron d eficiency anemia Lichen sclerosus 01/29/2016 DX:Lichen scler osus Type 2 diabetes mellitus wit hout complication ([facility] V24, [facility] V28) 01/26/2019 DX:Type 2 diab etes mellitus without complication (HCC) DM (diabetes mellitus), type 2 with renal complications ([facility] V24, [facility] V28) 01/26/2019 DX:DM (diabetes mellitus), t ype 2 with renal complications (HCC) CKD (chronic kidney disease) stage 3, GFR 30-59 ml/min ([facility] V24, [facility] V28) 02/14/2020 DX:CKD (chronic kidney disea se) stage 3, GFR 30-59 ml/min ([facility]) Microalbuminuria 12/28/2020 DX:Microalbumin uria Sensorineural hearing loss ( SNHL) of right ear 12/28/2020 DX:Sensorineural hearing los s (SNHL) of right ear Severe obesity (BMI 35.0-39. 9) with comorbidity ([facility] V24, [facility] V28) 12/28/2020 DX:Severe obesi ty (BMI 35.0- 39.9) with comorbidity ([facility]) Family History Medical History Relation Name Comments [...] PM EDT Office Visit Orthopedic Surgery - [place] [id number] [phone] Blade Mcfarlane, DPM [address] [address] 01/07/2025 9:40 AM EDT Office Visit Endocrinology [address] [phone] Adeline Churchill PA [address] [place] [phone] Health Maintenance Due Date Last Done Comments [...] 05/30/2021 05/31/2019 Colorectal Cancer Screening: Colonoscopy 02/23/2022 HIV Screening 02/23/2022 Hepatitis C Screening 02/23/2022 Social Influencers of Health Screening 02/23/2022 Depression Screening 03/17/2024 Zoster Vaccines (2 of 2) 06/09/2024 04/14/2024 Diabetes: Annual Urine Albumin-Creatinine Ratio (uACR) 11/04/2024 11/05/2023 Influenza Vaccine (#1) 2024 Diabetes: Blood Sugar Control Test (HGBA1C) [...] unspecified whether stage 3a or 3b CKD ([facility]/H[facility] V24, [facility] V28) HM URINE ALBUMIN CREATININE RATIO Routine 11/05/2023 LIPID PANEL Routine 11/05/2023 DX MAMMO INCL CAD BI Routine 05/31/2019 11:07 AM EDT Changes in skin texture PAP SMEAR Routine 08/14/2017 from Last 3 Months or Most Recently Relevant to Health Maintenance Results * ECG-Annotated (09/06/2024) us Provider Onbase MD ECG ORDERABLES Final Result * ECG 12 lead (09/03/2024 5:20 PM EDT) Ventricular Rate ECG 66 BPM GEMUSE Atrial Rate 66 BPM GEMUSE P-R Interval 188 ms GEMUSE QRS Duration 92 ms GEMUSE Q-T Interval 446 ms GEMUSE QTc 467 ms GEMUSE P Wave [place] 36 degrees GEMUSE R [place] 9 degrees GEMUSE T [place] 22 degrees GEMUSE ECG Interpretation Normal sinus rhythm Normal ECG No previous ECGs available Confirmed by POPEYE MARIO ([id number]) on 09/03/2024 8:33:06 PM GEMUSE 09/03/2024 5:20 PM EDT 09/03/2024 8:33 PM EDT us Melchor Solomon MD ECG ORDERABLES Final Resul t GEMUSE * CBC auto differential (09/03/2024 5:14 PM EDT) WBC 9.6 4.8 - 10.8 K/mcL LAB HEMETOLOGY METHOD 09/03/2024 6:19 PM EDT [facility] RBC 4.20 3.80 - 4.80 M/mcL LAB HEMETOLOGY METHOD 09/03/2024 6:19 PM EDT [facility] Hemoglobin 12.4 11.5 - 16.0 g/dL LAB HEMETOLOGY METHOD 09/03/2024 6:19 PM EDT [facility] Hematocrit 38.6 35.0 - 47.0 % LAB HEMETOLOGY METHOD 09/03/2024 6:19 PM EDT [facility] MCV 91.5 79.0 - 98.0 FL LAB HEMETOLOGY METHOD 09/03/2024 6:19 PM EDT [facility] MCH 29.4 27.0 - 32.0 pcg LAB HEMETOLOGY METHOD 09/03/2024 6:19 PM EDT [facility] MCHC 32.1 32.0 - 37.0 g/dL LAB HEMETOLOGY METHOD 09/03/2024 6:19 PM EDT [facility] RDW 13.4 11.0 - 15.0 % LAB HEMETOLOGY METHOD 09/03/2024 6:19 PM EDT [facility] Platelets 258 130 - 400 K/mcL LAB HEMETOLOGY METHOD 09/03/2024 6:19 PM EDT [facility] MPV 9.9 7.0 - 11.0 FL LAB HEMETOLOGY METHOD 09/03/2024 6:19 PM EDT [facility] NRBC 0.0 <1.0 % LAB HEMETOLOGY METHOD 09/03/2024 6:19 PM EDT [facility] NRBC Absolute 0.00 <0.10 K/mcL LAB HEMETOLOGY METHOD 09/03/2024 6:19 PM EDT [facility] Neutrophils Relative 58.8 % LAB HEMETOLOGY METHOD 09/03/2024 6:19 PM EDT [facility] Lymphocytes Relative 32.2 % LAB HEMETOLOGY METHOD 09/03/2024 6:19 PM EDT [facility] Monocytes Relative 5.7 % LAB HEMETOLOGY METHOD 09/03/2024 6:19 PM EDT [facility] Eosinophils Relative 2.3 % LAB HEMETOLOGY METHOD 09/03/2024 6:19 PM EDT [facility] Basophils Relative 0.7 % LAB HEMETOLOGY METHOD 09/03/2024 6:19 PM EDT [facility] Immature Granulocytes Relative 0.3 % LAB HEMETOLOGY METHOD 09/03/2024 6:19 PM EDT [facility] Neutrophils Absolute 5.66 1.50 - 7.00 K/mcL LAB HEMETOLOGY METHOD 09/03/2024 6:19 PM EDT [facility] Lymphocytes Absolute 3.10 1.00 - 5.00 K/mcL LAB HEMETOLOGY METHOD 09/03/2024 6:19 PM EDT [facility] Monocytes Absolute 0.55 0.20 - 1.00 K/mcL LAB HEMETOLOGY METHOD 09/03/2024 6:19 PM EDT [facility] Eosinophils Absolute 0.22 0.00 - 0.50 K/mcL LAB HEMETOLOGY METHOD 09/03/2024 6:19 PM EDT [facility] Basophils Absolute 0.07 0.00 - 0.20 K/mcL LAB HEMETOLOGY METHOD 09/03/2024 6:19 PM EDT [facility] Immature Granulocytes Absolute 0.03 0.00 - 0.03 K/mcL LAB HEMETOLOGY METHOD 09/03/2024 6:19 PM [facility] Blood Venous blood specimen / Unknown Venipuncture / Unknown 09/03/2024 5:14 PM EDT 09/03/2024 6:08 PM EDT us Grace DUENAS LAB BLOOD ORDERABLES Final Re sult [facility] [address] [place] [address], [place] [phone] * (ABNORMAL) Comprehensive metabolic panel (09/03/2024 5:14 PM EDT) Sodium 131(L) 133 - 145 mmol/L LAB CHEMISTRY METHOD 09/03/2024 6:51 PM [facility] Potassium 3.2(L) 3.5 - 5.5 mmol/L LAB CHEMISTRY METHOD 09/03/2024 6:51 PM [facility] Chloride 93(L) 96 - 110 mmol/L LAB CHEMISTRY METHOD 09/03/2024 6:51 PM [facility] CO2 31 21 - 32 mmol/L LAB CHEMISTRY METHOD 09/03/2024 6:51 PM [facility] Anion Gap 7 3 - 11 LAB CHEMISTRY METHOD 09/03/2024 6:51 PM [facility] Glucose 145(H) 70 - 100 mg/dL LAB CHEMISTRY METHOD 09/03/2024 6:51 PM [facility] BUN 21 5 - 25 mg/dL LAB CHEMISTRY METHOD 09/03/2024 6:51 PM [facility] Creatinine 1.11(H) 0.50 - 1.10 mg/dL LAB CHEMISTRY METHOD 09/03/2024 6:51 PM [facility] eGFR 58(L) >=60 mL/min/1. 73m2 LAB CHEMISTRY METHOD 09/03/2024 6:51 PM [facility] Comment:Calculation based on the Chronic Kidney Disease Epidemiology Collaboration (CKD-EPI) equation refit without adjustment for race. BUN/Creatinine Ratio 18.9 LAB CHEMISTRY METHOD 09/03/2024 6:51 PM [facility] Calcium 10.2 8.5 - 10.5 mg/dL LAB CHEMISTRY METHOD 09/03/2024 6:51 PM [facility] AST (SGOT) 22 10 - 42 unit/L LAB CHEMISTRY METHOD 09/03/2024 6:51 PM [facility] ALT (SGPT) 28 10 - 60 unit/L LAB CHEMISTRY METHOD 09/03/2024 6:51 PM [facility] Alkaline Phosphatase 69 42 - 121 unit/L LAB CHEMISTRY METHOD 09/03/2024 6:51 PM [facility] Total Protein 7.6 6.0 - 8.0 g/dL LAB CHEMISTRY METHOD 09/03/2024 6:51 PM [facility] Albumin 3.7 3.2 - 5.0 g/dL LAB CHEMISTRY METHOD 09/03/2024 6:51 PM [facility] Total Bilirubin 0.7 0.0 - 1.4 mg/dL LAB CHEMISTRY METHOD 09/03/2024 6:51 PM T [facility] Blood Venous blood specimen / Unknown Venipuncture / Unknown 09/03/2024 5:14 PM EDT 09/03/2024 6:08 PM EDT us Grace DUENAS LAB BLOOD ORDERABLES Final Re sult [facility] [address] [place] [address], [place] [phone] * (ABNORMAL) Hemoglobin A1c (06/01/2024 11:31 AM EDT) [facility] Hemoglobin A1C 9.4(H) <6.5 % LAB CHEMISTRY METHOD 06/01/2024 8:56 PM EDT [facility] Mean Bld Glu Estim. 223 mg/dL LAB CHEMISTRY METHOD 06/01/2024 8:56 PM EDT [facility] Blood Venous blood specimen / Unknown Venipuncture / Unknown 06/01/2024 11:31 AM EDT 06/01/2024 11:31 AM EDT Adeline DUENAS LAB BLOOD ORDERABLES Final Resul t [facility] [address] [place] [address], [place] [phone] * HM Urine Albumin Creatinine Ratio (11/05/2023) [facility] Urine Albumin Creatinine Ratio Abstracted Historical Provider HEALTH MAINTENANCE Final Result * (ABNORMAL) Lipid panel (11/05/2023) [facility] LDL/HDL Ratio 3 0 - 4 Triglycerides [...] an appointment with her mother's physician at [facility]. BI-RADS 2-benign Procedure Note Daina Arreaga [...] [facility] 2-benign us Millie Nunez CNM IMG BI PROCEDURES Final Resul t * Pap smear (08/14/2017) 08/14/2017 Narrative HISTORICAL TESTING LAB RESULTING AGENCY - 08/18/2017 2:37 PM EDT [id number] THINPREP PAP, IMAGED: NEGATIVE FOR SQUAMOUS INTRAEPITHELIAL LESION AND MALIGNANCY . RESULT OF APTVend-a-Bar HIGH RISK HPV ASSAY: NEGATIVE (SEROTYPES 16,18,31,33,35,39,45,51,52,56,58,59,66,68) [...] to Health Maintenance Insurance [address] [place] [address] [employer] Care Teams Central Aisle Cashier Relationship Specialty Start Date End Date Pallavi Antunez MD [address] [place] [id number] PCP - General Internal Medicine 06/11/21
== END 2024-11-01 16:54 | disposition home or self-care (01) ==
LOC: HO.HMCFM 15:13
PROVIDERS: PCP Nurse Practitioner Family; Visit Provider Nurse Practitioner Family
DX: E11.59 Type 2 diabetes mellitus with other circulatory complications (principal); E11.69 Type 2 diabetes mellitus with other specified complication; I15.2 Hypertension secondary to endocrine disorders; R90.82 White matter disease, unspecified; E78.5 Hyperlipidemia, unspecified; R47.1 Dysarthria and anarthria

== ENCOUNTER 2024-12-17 14:01 | Outpatient (AMB) | payer OTHER, SELFPAY ==
--- OUTSIDE RECORDS SUMMARY | 2024-12-14 14:00 | XMS_ITS | Encounter Summary ---
Author Organization [facility] Address [address] [place] [address] Care Team Providers Care Story Reader Name Role Phone Pallavi Antunez MD Primary Care Provider Reason for Visit * Reason Comments DM Foot Care Encounter Details Date Type Department Care Team ([facility] st Contact Info) Description 12/14/2024 2:00 PM EDT Office Visit Orthopedic Surgery - [place] [address] [phone] Blade Mcfarlane DPM [address] [phone] Dermatophytosis of nail (Primary Dx); Ingrowing nail; Diabetic mononeuropathy simplex ([facility] V24, [facility] V28); Type 2 diabetes mellitus with stage 3 chronic kidney disease, with long-term current use of insulin, unspecified whether stage 3a or 3b CKD ([facility] V24, [facility] V28); Pain in both feet Social History Tobacco Use Types Packs/Day Years [...] as of this encounter Progress Notes * Blade Mcfarlane DPM - 12/14/2024 2:00 PM EDT Last PCP visit:Referring MD: Adeline Churchill PA 03/04/24 S Patient presents today complaining of pain in her feet reports she is diabetic endorses occasional numbness and tingling to her feet noted that she recently has some irritation of her great toenail states it has resolved she does note that occasionally grows into her skin irritates her ROS: GENERAL: Pt denies nausea, fever, vomiting, chills, or shortness of breath. Pt in NAD. CARDIOLOGY: pt denies chest pain, palpitations LUNGS: pt denies shortness of breath MUSCULOSKELETAL: See HPI, otherwise no joint pain or swelling, back pain, or muscle pain. SKIN: see HPI, otherwise no lesions, rash or itching NEURO: No persistent headache, weakness or numbness The remainder of the review of systems is noncontributory PAST MEDICAL HISTORY: Patient Active Problem List Diagnosis Severe obesity (BMI 35.0-39.9) with comorbidity ([facility] V24, [facility] V28) Sensorineural hearing loss (SNHL) of right ear Palpitations Microalbuminuria Meniere disease Iron deficiency anemia Hypertension Hyperlipidemia DM (diabetes mellitus), type 2 with renal complications (CMS/HCC V24, CMS/HCC V28) Lichen sclerosus Depression CKD (chronic kidney disease) stage 3, GFR 30-59 ml/min (CMS/HCC V24, [facility]/H[facility] V28) Chest pain Calcific tendinitis of left shoulder Abnormal mammogram SOCIAL HISTORY: Social History Tobacco Use Smoking status: Former Current packs/day: 0.00 Average packs/day: 0.5 packs/day for 7.9 years (4.0 ttl pk-yrs) Types: Cigarettes Start date: 03/17/1984 Quit date: 02/17/1992 Years since quittin.8 Smokeless tobacco: Never Substance Use Topics Alcohol use: Yes ACTIVE MEDICATIONS: Outpatient Medications Marked as Taking for the 12/14/24 encounter (Office Visit) with Blade Degroot DPM Medication Sig Dispense Refill BABY ASPIRIN ORAL Take by mouth. blood sugar diagnostic (FreeStyle Lite Strips) test strip 1 Strip by In Vitro route 4 times daily. blood-glucose meter kit Inject 1 Each into the skin 2 times daily. blood-glucose sensor (FreeStyle Qamar 3 Plus Sensor) device Change sensor every 15 days 6 each 1 cholecalciferol (VITAMIN D-3) 10 mcg (400 unit) tablet Take 400 Int'l Units by mouth. citalopram (CeleXA) 20 mg tablet TAKE 1 TABLET BY MOUTH EVERY DAY clobetasoL (TEMOVATE) 0.05 % cream Apply topically twice weekly. Wash hands following application. FREESTYLE LANCETS MISC 1 Each by Does not apply route 2 times daily. insulin glargine,hum.rec.anlog (Basaglar KwikPen U-100 Insulin) 100 unit/mL (3 mL) injection pen Inject 50 Units into the skin at bedtime. Increase by 2 units every 3 days with a max dose of 64 unitsat bedtime, if fasting sugars remain over 130 60 mL 1 insulin lispro (HumaLOG KwikPen Insulin) 100 unit/mL injection pen INJECT BEFORE BREAKFAST, LUNCH AND DINNER: <100: 0 UNITS, 100-150: 8 UNITS, 151-200: 10 UNITS, 201-250: 12 UNITS, 251-300: 14 UNITS, 301-350: 16 UNITS, 351-400: 18 UNITS. >400: CALL ME. Max dose 54 units/day 45 mL 1 ketoconazole (NIZORAL) 2 % cream Apply thin layer to affected areas daily x 2-3 weeks until rash isresolved metoprolol succinate (TOPROL-XL) 50 mg 24 hr tablet TAKE 1 TABLET BY MOUTH EVERY DAY mometasone (ELOCON) 0.1 % cream Apply topically 2 times daily. pen needle, diabetic 32 gauge x 5/32 needle USE TO INJECT INSULIN up to 3 times a day rosuvastatin (CRESTOR) 40 mg tablet TAKE 1 TABLET BY MOUTH EVERYDAY AT BEDTIME semaglutide (OZEMPIC) 0.25 mg or 0.5 mg (2 mg/3 mL) injection pen Use 0.5 mg once weekly 3 mL 2 silver sulfADIAZINE (Silvadene) 1 % cream Apply topically 1 (one) time each day. 50 g 0 triamterene-hydroCHLOROthiazide (DYAZIDE) 37.5-25 mg per capsule TAKE 1 CAPSULE BY MOUTH EVERY MORNING. ALLERGIES: Allergies Allergen Reactions Amoxicillin-Pot Clavulanate Other Reaction(s): Rash/Dermatitis PHYSICAL EXAM: Visit Vitals Smoking Status Former PODIATRIC EXAMINATION: GENERAL: Patient appears well nourished, with NAD. VASCULAR: Dorsalis pedis pulses are 2/4 bilaterally and Posterior tibial pulses are 2/4 bilaterally. Capillary filling time within normal limits the digits. No pallor on elevation or rubor on dependency. No varicosities. Denies rest pain or claudication pain. NEUROLOGICAL: Sharp/dull sensation diminished, protective sensation intact 10/10 with 5.07 semmes daija bilaterally, vibratory sensation with tuning fork intact to the tibial tuberosity. ORTHOPEDIC: Good muscle strength 5/5 of all flexors and extensors. Dorsi flexion of ankle ,10 degrees, plantar flexion WNL. No muscle atrophy. DERMATOLOGICAL:.Resolved ingrown nail plate left great toe resolved infection left great toe lessertoenails are thickened discolored x 10 BIOMECHANICS: Ankle ROM WNL, STJ ROM wnl, MTJ ROM wnl, 1st MPJ ROM wnl. IMAGING: IMPRESSION: 1. Dermatophytosis of nail 2. Ingrowing nail 3. Diabetic mononeuropathy simplex ([facility] V24, [facility] V28) 4. Type 2 diabetes mellitus with stage 3 chronic kidney disease, with long-term current use of insulin, unspecified whether stage 3a or 3b CKD (CMS/HCC V24, CMS/HCC V28) 5. Pain in both feet PLAN: Pt was seen and examined, history reviewed. Recommend nail avulsion given concerns for recurring infections patient type II diabetic Discussed with patient regarding proper glucose control, exercise, and diet. Explained to patient proper shoe gear, and importance of daily foot checks. I reviewed neuropathy and why it occurs in diabetics. I educated the patient on proper blood sugar control and the importance of an HgBA1c of less than 7.0%. I reviewed the signs and symptoms of neuropathy with the patient Thickened nails cleaned optimize topical therapies would recommend [id number] patient currently on ketoconazole topically Follow-up in 2 to 3 months Blade Mcfarlane DPM documented in this encounter Plan of Treatment Upcoming Encounters Date Type Department Care Team (Late st Contact Info) Description 06/13/2025 9:30 AM EDT Office Visit Orthopedic Surgery - [address] [phone] Blade Mcfarlane DPSharon [address] [facility] [address] [place] [address] documented as of this encounter Visit Diagnoses Diagnosis Dermatophytosis of nail- Primary Ingrowing nail Diabetic mononeuropathy simplex ([facility] V24, [facility] V28) Type II or unspecified type diabetes mellitus with neurological manifestations, not stated as uncontrolled Type 2 diabetes mellitus with stage 3 chronic kidney disease, with long-term current use of insulin, unspecified whether stage 3a or 3b CKD ([facility] V24, [facility] V28) Pain in both feet documented in this encounter Care Teams Story Reader Relationship Specialty Start Date End Date Pallavi Antunez MD [address] [place] [id number] PCP - General Internal Medicine 06/11/21 documented as of this encounter
--- NOTE | 2024-12-17 14:04 | A.OFFPC_ITS ---
Vital Signs 12/17/24 14:09 Height 5 ft 6 in Weight 220 lb BMI 35.5 BP 114/64 Blood Pressure Location Rt brachial Position Sitting Respiration 14 Pulse 70 Pulse Source Pulse Oximeter Temp 97.5 F Temp Source Temporal Artery Scan Pulse Oximetry (%) 97 Oxygen Delivery Method Room Air Intake Visit Reasons: swollen face in person Intake Note: Paris presents in the office today for a swelling on the right side of her face. Allergies amoxicillin (From Augmentin) Allergy (Severe, Verified 12/17/24 14:18) Rash clavulanic acid (From Augmentin) Allergy (Severe, Verified 12/17/24 14:18) Rash Medication List - Last Reconciled 12/17/24 by Ingrid Castillo, [facility]- aspirin 81 mg PO DAILY cholecalciferol (vitamin D3) 25 mcg PO DAILY citalopram 20 mg PO DAILY insulin glargine (Basaglar KwikPen U-100 Insulin) 60 units subcut QPM insulin lispro (Humalog KwikPen (U-100) Insulin) 1 sliding scale dose subcut USEASDIRECTD metoprolol succinate ER 25 mg (1/2 x 50 mg) PO DAILY ondansetron HCl 4 mg PO Q8H PRN 3 days pen needle, diabetic (BD Maya 2nd Gen Pen Needle) As directed rosuvastatin 40 mg PO DAILY semaglutide (Ozempic) 0.5 mg subcut QWEEK triamterene-hydrochlorothiazid 37.5-25 mg 1 cap PO DAILY Tobacco use date assessed: 12/17/24 Dental Screening Dental Screen Date: 12/17/24 Did you have a dental visit in the last 12 months?: Yes Did you have a dental problem in the last 6 months where you did not have access to dental care?: No Was dental information given to patient?: Patient has dentist HPI HPI Comments History of Present Illness Details 59 y/o F with DM2, Meniere's Dz, Hyperli pidemia, menopause, obesity, lichen sclerosis, HTN, MDD, white matter disease of brain Surgery: back surgery 2020 Dr Crawford, 2002 R meniscal tear ([facility]). Here today w/ swelling R side of face w/ pain Started yesterday and worsened today Had Menieres yesterday; left work went home to rest. Woke this AM sellling R side of face face painful to touch starts around the ear to the jaw line on R side only worse since this am mild edema yesterday and it improved Denies fever, chills. + painful swallowing. No trouble breathing. No home remedies. No new meds Ate friday before sx, ?? trauma Blood sugars have increased over the last week. Exam Awake alert NAD, nonto Sclera and conjunctiva clear bilat Nares patent, turbinates within normal limits, no sinus tenderness with palpation bilat TM intact and clear bilat, external ear on R is very small skin tear w/o infection. R facial swelling obvious around the cheek and jaw line, in front of the ear, not behind. Mastoid is nontender. + ac adenopathy on the right. MMM, pharynx with w few white spots, uvula midline, managing secretions. Mild muffled sounding voice RRR LS CTAB I provided an overview of the likely diagnosis of a peritonsillar abscess. Discussed management with antibiotics, considering her allergy to Augmentin, and the possibility of requiring imaging if symptoms worsen or do not improve in 24 to 48 hours. Recommended avoiding urgent care due to potential inflammation risk if improperly handled. Emphasized use of ibuprofen for pain and swelling, and avoidance of steroid usage due to potential hyperglycemia. Ensured the patient understood the need for emergency care if experiencing heightened symptoms such as fever or difficulty swallowing. Explained the importance of taking antibiotics with food, monitoring blood sugar levels, and avoiding local manipulation of the affected area. The patient was advised on signs to watch for and when to seek further medical evaluation. Patient was given time to ask questions. All questions were answered to their satisfaction. [facility] Medical History (Updated 12/17/24 @ 14:37 by CYNTHIA Gil-OSMIN) Diabetes Menieres disease Surgical History (Updated 07/14/24 @ 12:29 by ALDAIR Gil) History of colonoscopy (~2024) Previous back surgery Family History Other FH: mental illness Substance abuse Social History (Updated 12/17/24 @ 14:09 by Ewa Evans CMA) Household Members: Other Household Members Other:: 2 cats Housing: Apartment 75 years or older and lives alone: No Alcohol intake: current Alcohol intake frequency: holidays/special occasions only Patient Tobacco Use Status: Former Tobacco user Years Smoked: 10 e-Cigarette/Vaping Use: Never Used Second Hand Smoke Exposure: No Use of substances other than those prescribed or required for medical reasons: No service: No Current occupational status: employed Current occupation: [employer] Current occupational exposures/hazards: No Cognitive needs: No Hearing needs: Yes (hearing aid in right ear) Vision needs: No Questionnaire Thrive Questionnaire Date Thrive assessed: 03/26/24 I am a: Patient What is your living situation today?: I have a steady place to live Within the past 12 months, did the food you bought not last and you didn't have the money to get more?: Never true Within the past 12 months, did you worry whether your food would run out before you got money to buy more?: Never true Do you have trouble paying for medicines?: No Do you have trouble getting transportation to medical appointments?: No Do you have trouble paying your heating and electricity bill?: No Do you have trouble taking care of your child, family member or friend?: No Do you have trouble with day-to-day activities such as bathing, preparing meals, shopping, managing finances, etc.?: No Are you currently unemployed and looking for a job?: No Are you interested in more education?: No Please select the resources that you would like help with: None Currently or been in a relationship where the following occur: No concerns reported THRIVE Score: 0 ED-7 AMB Questionnaire ED-7 Date ED - 7 assessed: 09/13/24 Source: Developed by Drs. Jacob Hess, Gayla Oscar, Antonio Martinez and colleagues, with an educational avani from [employer]. Physical exam (Primary Care) Vital Signs: Last Vital Signs Temp 97.5 F 12/17/24 14:09 Pulse 70 12/17/24 14:09 Resp 14 12/17/24 14:09 BP 114/64 12/17/24 14:09 Pulse Ox 97 12/17/24 14:09 Oxygen Delivery Method Room Air 12/17/24 14:09 BMI result Body Mass Index 35.5 Tobacco/Smoking Status: Tobacco use Status Tobacco use date assessed 12/17/24 12/17/24 14:12 Patient Tobacco Use Status Former Tobacco user 12/17/24 14:12 e-Cigarette/Vaping Use Never Used 12/17/24 14:12 Thrive Assessment: Date of Thrive Assessment Date Thrive assessed 03/26/24 12/17/24 14:12 Currently or been in a relationship where the following occur: No concerns reported Coding Level of Care Code Est Pt Level 4 (87105) Complex EM visit Add On G2211 Diagnoses Facial swelling R22.0 Pharyngitis due to other organism J02.8 Pharyngitis/tonsillitis etiology: other specified organisms Insulin-treated type 2 diabetes mellitus E11.9; Z79.4 Assessment & Plan Assessment & Plan (1) Facial swelling: Code(s): R22.0 - Localized swelling, mass and lump, head Category: Medical (2) Pharyngitis: Code(s): J02.9 - Acute pharyngitis, unspecified Category: Medical Qualifiers: Pharyngitis/tonsillitis etiology: other specified organisms Qualified Code(s): J02.8 - Acute pharyngitis due to other specified organisms (3) Insulin-treated type 2 diabetes mellitus: Comment: active w/ Endo and Optho On ACEI & Statin Cont diabetic medications and diet Code(s): E11.9 - Type 2 diabetes mellitus without complications; 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 Medications: New clindamycin HCl (Cleocin HCl) 300 mg PO TID 30 caps 0RF 10 days
[2024-12-17 14:09] VITALS: BP 114/64; PULSE 70; RESP 14; TEMP 36.4; O2SAT 97; BMI 35.5
--- OUTSIDE RECORDS SUMMARY | 2024-12-17 14:13 | XMS_ITS | Clinical Summary ---
Author Organization [address] [facility] Address [address] [place] [address] Phone Care Team Providers Care Portable Sawyer Name Role Phone Pallavi Antunez MD Primary Care Provider Allergies Active Allergy Reactions Criticality Noted Date Comments Amoxicillin-Pot Clavulanate 11/10/19 20 Other Reaction(s): Rash/Dermatitis Medications BABY ASPIRIN ORAL Take by mouth. Active citalopram (CeleXA) 20 mg tablet TAKE 1 TABLET BY MOUTH EVERY DAY 4 Active clobetasoL (TEMOVATE) 0.05 % cream Apply topically twice weekly. Wash hands following application. 8 Active FREESTYLE LANCETS MISC 1 Each by Does not apply route 2 times daily. 0 Active blood sugar diagnostic (FreeStyle Lite Strips) test strip 1 Strip by In Vitro route 4 times daily. 0 Active blood-glucose meter kit Inject 1 Each into the skin 2 times daily. 0 Active pen needle, diabetic 32 gauge x /32 needle USE TO INJECT INSULIN up to [...] BY MOUTH EVERYDAY AT BEDTIME 4 Active triamterene-hydr oCHLOROthiazide (DYAZIDE) 37.5-25 mg per capsule TAKE 1 CAPSULE BY MOUTH EVERY MORNING. 1 Active cholecalciferol (VITAMIN D-3) 10 mcg (400 unit) tablet Take 400 Int'l Units by mouth. 1 Active silver sulfADIAZINE (Silvadene) 1 % cream Apply topically 1 (one) time each day. 50 g 5 05/18/19 26 Active insulin glargine,hum.rec .anlog (Basaglar KwikPen U-100 Insulin) 100 unit/mL (3 mL) injection penIndications:T ype 2 diabetes mellitus with stage 3 chronic kidney disease, with long-term current use of insulin, unspecified whether stage 3a or 3b CKD ([facility] V24, [facility] V28) Inject 50 Units into the skin at bedtime. Increase by 2 units every 3 days with a max dose of 64 units at bedtime, if fasting sugars remain over 130 60 mL 1 5 Active insulin lispro (HumaLOG KwikPen Insulin) 100 unit/mL injection penIndications:T ype 2 diabetes mellitus with stage 3 chronic kidney disease, with long-term current use of insulin, unspecified whether stage 3a or 3b CKD ([facility] V24, [facility] V28) INJECT BEFORE BREAKFAST, LUNCH AND DINNER: <100: 0 UNITS, 100-150: 8 UNITS, 151-200: 10 UNITS, 201-250: 12 UNITS, 251-300: 14 UNITS, 301-350: 16 UNITS, 351-400: 18 UNITS. >400: CALL ME. Max dose 54 units/day 45 mL 1 5 Active semaglutide (OZEMPIC) 0.25 mg or 0.5 mg (2 mg/3 mL) injection penIndications:T ype 2 diabetes mellitus with stage 3 chronic kidney disease, with long-term current use of insulin, unspecified whether stage 3a or 3b CKD ([facility] V24, [facility] V28) Use 0.5 mg once weekly 3 mL 2 5 Active blood-glucose sensor (FreeStyle Qamar 3 Plus Sensor) deviceIndication s:Type 2 diabetes mellitus with diabetic microalbuminuria , with long-term current use of insulin ([facility] V24, [facility] V28) Change sensor every 15 days 6 each 1 5 Active blood-glucose sensor (FREESTYLE QAMAR 3 SENSOR MISC) 1 Each by Does not apply route See Admin Instructions. E11.65 Use one sensor every 14 days 4 12/08/19 25 Discontin ued(Formu desmond change) semaglutide (OZEMPIC) 0.25 mg or 0.5 mg (2 mg/3 mL) injection penIndications:T ype 2 diabetes mellitus with stage 3 chronic kidney disease, with long-term current use of insulin, unspecified whether stage 3a or 3b CKD ([facility] V24, [facility] V28) Use 0.25mg once weekly 3 mL 3 5 12/08/19 25 Discontin ued(Reord er) Active Problems Problem Noted Date Diagnosed Date Depression 01/29/2024 Palpitations 05/14/2021 Chest pain 05/14/2021 Severe obesity (BMI 35.0-39. 9) with comorbidity ([facility] V24, [facility] V28) 12/28/2020 Sensorineural hearing loss (SNHL) of right ear 1 Microalbuminuria 12/28/2020 CKD (chronic kidney disease) stage 3, GFR 30-59 ml/min ([facility] V24, [facility] V28) 02/14/2020 Abnormal mammogram 02/14/2020 Overview (01/29/2024): right breast/already scheduled for 6 months follow up in 04/2020 Meniere disease 02/05/2019 Overview (01/29/2024): Dr Montenegro Calcific tendinitis of left shoulder 02/05/2019 Iron deficiency anemia 01/26/2019 Hypertension 01/26/2019 Hyperlipidemia 01/26/2019 DM (diabetes mellitus), type 2 with renal complications ([facility] V24, [facility] V28) 01/26/2019 Lichen sclerosus 01/29/2016 Encounters Date Type Department Care Team Description 12/14/2024 2:00 PM EDT Office Visit Orthopedic Surgery [place] [id number] [address] [facility] [address] [place] [phone] Blade Mcfarlane, ADARSHM Dermatophytosis of nail (Primary Dx); Ingrowing nail; Diabetic mononeuropathy simplex ([facility] V24, [facility] V28); Type 2 diabetes mellitus with stage 3 chronic kidney disease, with long-term current use of insulin, unspecified whether stage 3a or 3b CKD ([facility] V24, [facility] V28); Pain in both feet 10/11/2024 Telephone Orthopedic Surgery [facility] [address] [facility] [address] [place] [phone] Blade Mcfarlane DPM from Last 3 Months Immunizations Immunization Administration Dates Next Due Pneumococcal polysaccharide 23 valent (Pneumovax 23) 2yo and older 02/14/2020 Tdap Tetanus diptheria acell ular pertussis (Boostrix; Adacel) 7yo and older 09/09/2016,10/26/2008 Surgical History Surgery Date Site/Laterality Comments OTHER SURGICAL HISTORY 2003 Right PROCEDURE: MN ARTHRS AIDED ANT CRUCIATE LIGM RPR/AGMNTJ/RCNSTJ; COMMENT: meniscus repair Medical History Medical History Date Comments Arthritis DX:Arthritis Depression DX:Depression Hypertension 01/26/2019 DX:Hypertension Hyperlipidemia 01/26/2019 DX:Hyperlipidemi a Iron deficiency anemia 01/26/2019 DX:Iron d eficiency anemia Lichen sclerosus 01/29/2016 DX:Lichen scler osus Type 2 diabetes mellitus wit hout complication 01/26/2019 DX:Type 2 diabetes mellitus without complication (HCC) DM (diabetes mellitus), type 2 with renal complications ([facility] V24, [facility] V28) 01/26/2019 DX:DM (diabetes mellitus), t ype 2 with renal complications ([facility]) CKD (chronic kidney disease) stage 3, GFR 30-59 ml/min ([facility] V24, [facility] V28) 02/14/2020 DX:CKD (chronic kidney disea se) stage 3, GFR 30-59 ml/min ([facility]) Microalbuminuria 12/28/2020 DX:Microalbumin uria Sensorineural hearing [...] AM EDT Office Visit Orthopedic Surgery - [place] [address] [place] [phone] Blade Mcfarlane, DPM [address] [facility] [address] [place] [phone] Health Maintenance Due Date Last Done Comments Colorectal Cancer Screening: Colonoscopy 1966 Diabetes: Annual Foot Exam 1976 Diabetes: Annual Retina Eye Exam 1976 Hepatitis B Vaccines (1 of 3 - 19+ 3-dose series) 1985 Cervical Cancer Screening: Pap Smear 08/14/2020 08/14/2017, 08/14/2017, 08/14/2017 COVID-19 Vaccine (3 - Pfizer risk series) 09/06/2020 08/09/2020, 07/19/2020 Pneumococcal Vaccine: 50+ Years (2 of 2 - PCV) 02/13/2021 02/14/2020 Breast Cancer Screening 05/30/2021 05/31/2019 HIV Screening 02/23/2022 Hepatitis C Screening 02/23/2022 [...] Cholesterol Screening (Lipid Panel) 11/04/2028 11/05/2023, 11/05/2023 RSV Immunization Adult Patients (1 - 1-dose 75+ series) 2041 HIB Vaccines Aged Out No longer eligi [...] Procedure Name Priority Date/Time Associated Diagnosis Comments COMPREHENSIVE METABOLIC PANEL STAT 09/03/2024 5:14 PM EDT HEMOGLOBIN A1C Routine 06/01/2024 11:31 AM EDT Type 2 diabetes mellitus with stage 3 chronic kidney disease, with long-term current use of insulin, unspecified whether stage 3a or 3b CKD ([facility] V24, [facility] V28) HM URINE ALBUMIN CREATININE RATIO Routine 11/05/2023 LIPID PANEL Routine 11/05/2023 DX MAMMO INCL CAD BI Routine 05/31/2019 11:07 AM EDT Changes in skin texture PAP SMEAR Routine 08/14/2017 from Last 3 Months or Most Recently Relevant to Health Maintenance Results * (ABNORMAL) Comprehensive metabolic panel (09/03/2024 5:14 PM EDT) Sodium 131(L) 133 - 145 mmol/L LAB CHEMISTRY METHOD 09/03/2024 6:[address] [facility] Potassium 3.2(L) 3.5 - 5.5 mmol/L LAB CHEMISTRY METHOD 09/03/2024 6:[address] [facility] Chloride 93(L) 96 - 110 [...] g/dL LAB CHEMISTRY METHOD 09/03/2024 6:[address] [facility] Albumin 3.7 3.2 - 5.0 g/dL LAB CHEMISTRY METHOD 09/03/2024 6:[address] [facility] Total Bilirubin 0.7 0.0 - 1.4 mg/dL LAB CHEMISTRY METHOD 09/03/2024 6:[address] [facility] Blood Venous blood specimen / Unknown Venipuncture / Unknown 09/03/2024 5:14 PM EDT 09/03/2024 6:08 PM EDT Grace DUENAS LAB BLOOD ORDERABLES Final Re sult [facility] [address] [place] [address], [place] [phone] * (ABNORMAL) Hemoglobin A1c (06/01/2024 11:31 AM EDT) Pathologist [facility] Hemoglobin A1C 9.4(H) <6.5 % LAB CHEMISTRY METHOD 06/01/2024 8:[address] [facility] Mean Bld Glu Estim. 223 mg/dL LAB CHEMISTRY METHOD 06/01/2024 8:[address] [facility] Blood Venous blood specimen / Unknown Venipuncture / Unknown 06/01/2024 11:31 AM EDT 06/01/2024 11:31 AM EDT Adeline DUENAS LAB BLOOD ORDERABLES Final Resul t [facility] [address] [place] [address], [place] [phone] * HM Urine Albumin Creatinine Ratio (11/05/2023) Pathologist [facility] Urine Albumin Creatinine Ratio Abstracted Historical Provider HEALTH MAINTENANCE Final Result * (ABNORMAL) Lipid panel (11/05/2023) LDL/HDL Ratio 3 0 - 4 Triglycerides 157(A) 0 - 150 mg/dL Cholesterol 135 0 - 200 mg/dL HDL 47 >=40 mg/dL LDL Cholesterol 57 0 - 100 mg/dL Blood Venous blood specimen / Unknown us Historical Provider LAB BLOOD ORDERABLES Yuridia l [...] an appointment with her mother's physician at [facility]. BI-RADS 2-benign Procedure Note Daina Arreaga [...] [facility]. [facility] 2-benign Millie Nunez CN IMG BI PROCEDURES Final Resul t * Pap smear (08/14/2017) 08/14/2017 Narrative HISTORICAL TESTING LAB RESULTING AGENCY - 08/18/2017 2:37 PM EDT [id number] THINPREP PAP, IMAGED: NEGATIVE FOR SQUAMOUS INTRAEPITHELIAL [...] to Health Maintenance Insurance [employer] Care Teams Portable Sawyer Relationship Specialty Start Date End Date Pallavi Antunez MD [address] [place] [id number] PCP - General Internal Medicine 06/11/21
== END 2024-12-17 14:33 | disposition home or self-care (01) ==
LOC: HO.HMCFM 14:01
PROVIDERS: PCP Nurse Practitioner Family; Visit Provider Nurse Practitioner Family
DX: R22.0 Localized swelling, mass and lump, head (principal); J02.8 Acute pharyngitis due to other specified organisms; E11.9 Type 2 diabetes mellitus without complications; Z79.4 Long term (current) use of insulin

== ENCOUNTER 2024-12-29 11:51 | Outpatient (AMB) | payer OTHER, SELFPAY ==
--- NOTE | 2024-12-29 12:55 | MHC.OFFWIV ---
Intake Vital Signs 12/29/24 12:56 Height 5 ft 6 in Weight 224 lb BMI 36.2 BP 128/66 Blood Pressure Location Rt brachial Position Sitting Pulse 68 Pulse Source Pulse Oximeter Temp 98.2 F Temp Source Oral Pulse Oximetry (%) 97 Oxygen Delivery Method Room Air Intake Visit Reasons: EP Allergic reaction? Rash, face is hot Intake Note: Pt presents with rash on torso and face itch, hot tingly, swollen and raised rash Patient Tobacco Use Status: Former Tobacco user Allergies amoxicillin (From Augmentin) Allergy (Severe, Verified 12/29/24 12:58) Rash clavulanic acid (From Augmentin) Allergy (Severe, Verified 12/29/24 12:58) Rash clindamycin Allergy (Intermediate, Verified 12/29/24 13:04) rash Do you need a note to return to daycare/school/sports/work: Yes HPI HPI Comments History of Present Illness Details History of Present Illness - The patient is a 59-year-old female presenting with a rash - The rash began on the back and progressed to the neck and face, with swelling of the eyelids. - The rash is itchy and warm to touch. - The patient has not taken any antihistamines due to their sedative effects. - The patient is currently on clindamycin for an abscess, which started about a week and a half ago, has one day left of antibiotics. - The patient has a known allergy to Augmentin, gets a rash. - The patient has diabetes mellitus and is on insulin therapy, using lantus and a sliding scale for blood sugar management. Physical Exam General: Cooperative, healthy appearing, comfortable, no acute distress and well developed Orientation: Patient oriented x3 Limitations: No limitations Head: Normal to inspection Ears: Hearing grossly normal bilaterally Nose: Normal External nose present Face and sinus: Rash present on face, eyelids swollen Eyes: Appearance normal, both eyes and all related structures Mouth: Tonsils normal with no erythema or edema, uvula midline, posterior oropharynx normal, tongue normal, moist mucous membrane Neck: Rash present on neck, normal visual inspection and Yes full ROM Respiratory: Normal respiratory effort and able to speak in complete sentences. Skin: morbilliform rash back, neck, and face, not warm to touch Neuro: Patient oriented x3 Extremities: Normal to inspection Review of Systems - Dermatological: Reports rash on back, neck, and face with swelling of eyelids - General: Reports itchiness and warmth of the rash - Endocrine: Reports diabetes mellitus, managed with insulin All systems reviewed and are unremarkable except as noted in HPI [facility] Medical History (Updated 12/29/24 @ 13:16 by Ludy Nguyen PA-C) Menieres disease Diabetes Surgical History (Updated 07/14/24 @ 12:29 by Ingrid Castillo, [facility]-) History of colonoscopy (~2024) Previous back surgery Family History Other FH: mental illness Substance abuse Social History (Updated 12/17/24 @ 14:09 by Ewa Evans CMA) Household Members: Other Household Members Other:: 2 cats Housing: Apartment 75 years or older and lives alone: No Alcohol intake: current Alcohol intake frequency: holidays/special occasions only Patient Tobacco Use Status: Former Tobacco user Years Smoked: 10 e-Cigarette/Vaping Use: Never Used Second Hand Smoke Exposure: No service: No Current occupational status: employed Current occupation: [employer] Current occupational exposures/hazards: No Cognitive needs: No Hearing needs: Yes (hearing aid in right ear) Vision needs: No Physical Exam Vital Signs: Last Vital Signs Temp 98.2 F 12/29/24 12:56 Pulse 68 12/29/24 12:56 BP 128/66 12/29/24 12:56 Pulse Ox 97 12/29/24 12:56 Oxygen Delivery Method Room Air 12/29/24 12:56 BMI result Body Mass Index 36.2 Assessment & Plan Assessment & Plan (1) Allergic drug rash: Code(s): L27.0 - Generalized skin eruption due to drugs and medicaments taken internally Plan: Patient was informed and verbally consented to the use of an ambient scribe for clinic note documentation during this visit. Allergic Reaction To Clindamycin - Discontinue clindamycin immediately. Added as allergy. - Initiate prednisone taper: 60 mg for 3 days, 40 mg for 3 days, 20 mg for 4 days. - Monitor blood glucose levels closely due to diabetes mellitus and adjust insulin as needed. - Continue insulin therapy with sliding scale adjustments based on blood glucose monitoring. - Adjust basal insulin by 5% at a time, if needed after observing the effects of prednisone on blood glucose levels. Abscess - No further antibiotics recommended at this time, right tonsil appears normal and infection appears to be resolved. - Monitor for any signs of recurrence or complications. Medications: New prednisone On days 1-3, take 3 tablets with breakfast. On days 4-6 take 2 tablets with breakfast, on days 7-10 take 1 tablet with breakfast 20 mg PO daily 19 tabs 0RF Discontinued clindamycin HCl (Cleocin HCl) Discontinued Reason: Doctor's Order 300 mg PO TID 10 days 30 caps 0RF Coding Level of Care Code Est Pt Level 4 (70594) Diagnoses Allergic drug rash L27.0
[2024-12-29 12:56] VITALS: BP 128/66; PULSE 68; TEMP 36.8; O2SAT 97; BMI 36.2
== END 2024-12-29 13:22 | disposition home or self-care (01) ==
PROVIDERS: PCP Nurse Practitioner Family; Visit Provider Physician Assistant
DX: L27.0 Generalized skin eruption due to drugs and medicaments taken internally (principal)